=== PATIENT | female | born 1960 | race Caucasian/White ===

== ENCOUNTER → 2016-07-21 | Outpatient (CLI) | payer OTHER ==
[~2016-07-21] MED LIST: ALPR1TAB3 PO; BUPR-79 PO; CEFU1TAB36 PO; CLC100 PO; ESCI10TA17 PO; ESCI1TAB10 PO; GABA-112 PO; HYDR-5688 PO; MRN5 PO; MULT-506 PO; NCDT21 TD; NICO14DI9 TOP; NRN100 PO; OXYC-57 PO; RMR15 PO; SENNTAB23 PO; TRAM-10 PO; TRAZ50TA35 PO; VICODIN PO
--- NOTE | 2016-07-21 12:54 | DIAGNOSTIC IMAGING REPORT ---
PET/CT CLINICAL HISTORY: Lung mass. COMPARISON STUDY: Chest CT dated 06/25/2016. TECHNIQUE: One hour following the IV administration of 15.83 mCi of F-18 FDG, PET/CT examination was performed from the orbital meatal line through the bony pelvis. Noncontrast CT is performed for the purposes of anatomic correlation and attenuation correction. Note that this does not reflect a diagnostic CT examination. Images were reviewed on a separate [employer] independent workstation. Fused images were obtained. Standard uptake values reported are maximum values within the region of interest expressed in gm/mL. FINDINGS: PET FINDINGS: Head and neck: There is expected physiologic activity within the visualized brain parenchyma at the skull base and the salivary glands. Thorax: Evaluation of the thorax demonstrates expected physiologic myocardial activity. There is approximately 8.5 x 8.5 x 7 cm right suprahilar mass lesion. This mass is markedly FDG avid with a maximum SUV of 12.0. A 3 mm left apical nodule seen on image #65 and 3 mm right lower lobe pulmonary nodules seen on images #96 and #102 are too small for PET characterization. No left-sided pulmonary nodules are seen. A mildly enlarged precarinal lymph node on image #78 measures 1.3 cm short axis. This was not demonstrably FDG avid. No FDG avid mediastinal or hilar lymph nodes were clearly seen. There is mild periosteal reaction is identified around the right posterior eighth rib. There is low level FDG activity at this site with a maximum SUV of 2.7. Abdomen and pelvis: There is expected activity within the liver, spleen, kidneys, renal collecting system, and bladder. Low-level bowel activity is likely within physical limits. Unenhanced CT images: The partially visualized brain parenchyma at the skull base is within normal limits. Orbital contents are normal as visualized. The paranasal sinuses and mastoid air cells are clear. The salivary and thyroid glands are unremarkable. There is no cervical lymphadenopathy. There is mild atherosclerotic calcification of the thoracic aorta which is normal in caliber. The heart is normal in size and without pericardial effusion. Emphysema is noted. There is no airspace consolidation typical for pneumonia or pleural effusion. See above under PET findings for assessment of pulmonary lesions. No axillary lymphadenopathy is seen. The unenhanced liver, gallbladder, spleen, adrenal glands, pancreas, and kidneys are grossly normal. The abdominal aorta is normal in course and caliber noting mild atherosclerotic calcification. There is no bowel obstruction. Mild colonic fecal retention is observed. No intraperitoneal free air or abdominal ascites is seen. There is no abdominal, pelvic, or inguinal lymphadenopathy. The bladder is partially decompressed and grossly unremarkable. The uterus is surgically absent. No adnexal lesion is seen. Periosteal reaction is noted involving the right posterior eighth rib. No additional bony abnormalities are identified. Postoperative change is identified in the mandible. IMPRESSION: 1. An 8.5 cm right suprahilar pulmonary mass lesion is again seen. This is markedly FDG avid and typical in appearance for a primary lung cancer. 2. There are 3 mm pulmonary nodules at the right apex and in the right lower lobe that are too small for PET characterization and indeterminant. These were also seen on the 06/25/2016 examination. 3. No left-sided pulmonary lesions are identified. 4. No FDG avid hilar or mediastinal lymph nodes are clearly identified. A mildly enlarged precarinal node is again seen and indeterminant, as this node did not show FDG uptake. 5. There is periosteal reaction seen involving the right posterior eighth rib with low level FDG activity. This is indeterminant and could represent a healing fracture. A metastatic focus would be impossible to exclude. Attention at follow-up is recommended. 6. There is no evidence of extrathoracic metastatic disease. 7. Emphysema. Electronically signed by: Deven Charles M.D. 07/21/2016 12:52 PM Dictated Date/Time: 07/21/2016 12:34 PM
== END | disposition home or self-care (01) ==
LOC: C.PET 10:27
PROVIDERS: ATTEND Internal Medicine Critical Care Medicine
DX: R91.8 Other nonspecific abnormal finding of lung field (principal); R91.1 Solitary pulmonary nodule; R93.7 Abnormal findings on diagnostic imaging of other parts of musculoskeletal system; J43.9 Emphysema, unspecified

== ENCOUNTER → 2016-07-23 | Outpatient (CLI) | payer OTHER ==
--- NOTE | 2016-07-23 15:56 | DIAGNOSTIC IMAGING REPORT ---
CT CHEST SUPERDIMENSIONAL WITHOUT CT DOSE: 219.07 mGy.cm CLINICAL HISTORY: Right lung pulmonary mass TECHNIQUE: Helical images were acquired through the chest without intravenous contrast. The data was sent for navigational bronchoscopy. No bony destructive changes are visualized. COMPARISON STUDY: PET/CT scan dated 07/21/2016 FINDINGS: No thyroid masses are visualized. There is a mildly enlarged precarinal lymph node measuring 13 mm in short axis. Right paratracheal lymph nodes are at the upper limits of normal in size. There is no pathologic hilar adenopathy given the limitations of a noncontrast study. There is no evidence of pathologic axillary lymphadenopathy. There is no evidence of thoracic aortic dilatation. The heart is normal in size. No pericardial effusion is visualized. No adrenal masses are visualized. There are no pleural effusions. There is an irregularly marginated 7.8 cm right upper lobe pulmonary mass. This mass extends to the right apical pleura. The mass abuts right innominate vein and superior vena cava. There is a 3.6 mm right lower lobe pulmonary nodule as visualized on image #197/336. There is a 4 mm right lower lobe pulmonary nodule as visualized in image #177/336. There is a 3 mm right upper lobe pulmonary nodule as visualized in image #75/336. There is a 2 mm left upper lobe pulmonary nodule as visualized on image #76/336. There is a 2.5 mm left upper lobe pulmonary nodule as visualized in image #83/336. There is a 4.5 mm left upper lobe pulmonary nodule as visualized on image #107/336. There is a 3 mm left lower lobe probably nodule as visualized in image #232/336. No skeletal destructive lesions are visualized IMPRESSION: 1. 7.8 cm right upper lobe pulmonary mass extending to the right apical pleura and abutting the right innominate vein and superior vena cava. The mass is irregularly marginated and highly suspicious for a bronchogenic carcinoma 2. Scattered subcentimeter pulmonary nodules 3. Mildly enlarged precarinal lymph node Electronically signed by: Bentley Veloz M.D. 07/23/2016 3:55 PM Dictated Date/Time: 07/23/2016 3:44 PM
== END | disposition home or self-care (01) ==
LOC: C.CTS 14:59
PROVIDERS: ATTEND Surgery
DX: R91.8 Other nonspecific abnormal finding of lung field (principal)

== ENCOUNTER → 2016-07-23 | Outpatient (CLI) | payer OTHER ==
[2016-07-23 16:44] LABS: BASO % 0.3 %; BASO ABS # 0.03 K/uL (0-0.2); COMPLETE YES; EOS % 1.1 %; HEMATOCRIT 39.5 % (37-47); IG% 0.3 %; LYMPH % 32.9 %; LYMPH ABS # 3.17 K/uL (1.2-3.4); MEAN CELL VOLUME 86.1 fL (80-100); MEAN CORPUSCULAR HEMOGLOBIN 30.1 pg (25-34); MEAN CORPUSCULAR HGB CONC 34.9 g/dl (32-36); MEAN PLATELET VOLUME 10.7 fL (7.4-10.4); MONO % 4.9 %; NEUT % 60.5 %; PLATELET COUNT 291 K/uL (130-400); RED BLOOD COUNT 4.59 M/uL (4.2-5.4); WHITE BLOOD COUNT 9.63 K/uL (4.8-10.8)
[2016-07-23 17:00] LABS: PROTHROMBIN TIME (PATIENT) 10.6 SECONDS (9.0-12.0)
[2016-07-23 17:07] LABS: ALT/SGPT 17 U/L (12-78); BLOOD UREA NITROGEN 9 mg/dl (7-18); BUN/CREATININE RATIO 15.4 (10-20); CALCIUM 9.2 mg/dl (8.5-10.1); CARBON DIOXIDE 28 mmol/L (21-32); CHLORIDE 106 mmol/L (98-107); CREATININE 0.61 mg/dl (0.60-1.20); GLUCOSE 81 mg/dl (70-99); POTASSIUM 3.7 mmol/L (3.5-5.1); SODIUM 142 mmol/L (136-145)
[2016-07-23 17:09] LABS: ALB/GLOB RATIO 1.1 (0.9-2); ALKALINE PHOSPHATASE 86 U/L (45-117); AST/SGOT 13 U/L (15-37)
== END | disposition home or self-care (01) ==
LOC: C.LAB 15:04
PROVIDERS: ATTEND Surgery
DX: C34.90 Malignant neoplasm of unspecified part of unspecified bronchus or lung (principal); F17.200 Nicotine dependence, unspecified, uncomplicated

== ENCOUNTER 2016-08-05 05:30 | Day surgery (SDC) | payer OTHER ==
[2016-07-26 09:32] VITALS: BMI 21.0
[~2016-08-05] VITALS: Ht 167.6 cm; Wt 60.0 kg
[~2016-08-05 05:30] MED LIST changes: -BUPR-79 PO; -CEFU1TAB36 PO; -CLC100 PO; -ESCI10TA17 PO; -GABA-112 PO; -HYDR-5688 PO; -MRN5 PO; -MULT-506 PO; -NCDT21 TD; -NICO14DI9 TOP; -NRN100 PO; -OXYC-57 PO; -RMR15 PO; -SENNTAB23 PO; -TRAM-10 PO; -VICODIN PO
[2016-08-05 05:46] VITALS: BP 111/70; PULSE 86; TEMP 36.4; O2SAT 98; Ht 167.6 cm; Wt 60.0 kg
[2016-08-05] MEDS ORDERED: TRAM-10 PO (05:58)
[2016-08-05] MEDS ORDERED: BUPR-79 PO (05:59)
[2016-08-05] MEDS ORDERED: LACTATED RINGER'S 1000ML 1,000 ML IV SCH (06:00)
[2016-08-05] MEDS ORDERED: EpHEDrine SULFATE INJ 50 MG/ML AMP ONE (06:40)
[2016-08-05] MEDS ORDERED: ROCURONIUM BROMIDE 10 MG/ML 5 ML VIAL ONE (06:40)
[2016-08-05] MEDS ORDERED: SUCCINYLCHOLINE CHLORIDE 20 MG/ML 10 ML VIAL IV ONE (06:40)
[2016-08-05] MEDS ORDERED: PHENYLEPHRINE HCL INJ 10 MG/ML VIAL ONE (06:40)
[2016-08-05] MEDS ORDERED: MIDAZOLAM HCL 1 MG/ML 2ML VIAL ONE (06:40)
[2016-08-05] MEDS ORDERED: NEOSTIGMINE METHYLSULFATE 5 MG/5 ML SYR ONE (06:40)
[2016-08-05] MEDS ORDERED: PROPOFOL IV EMULSION 10 MG/ML 20 ML VIAL IV ONE (06:40)
[2016-08-05] MEDS ORDERED: ONDANSETRON INJ 2 MG/ML 2 ML VIAL ONE ×2 (06:40→07:44)
[2016-08-05] MEDS ORDERED: FENTANYL CITRATE INJ 50 MCG/1 ML 2 ML VIAL ONE (06:40)
[2016-08-05] MEDS ORDERED: LIDOCAINE HCL 2% 2 ML VIAL (20MG/ML) ONE (06:40)
[2016-08-05] MEDS ORDERED: GLYCOPYRROLATE INJ 0.2 MG/ML VIAL ONE (06:40)
[2016-08-05] MEDS ORDERED: DEXAMETHASONE SOD INJ 4 MG/ML VIAL ONE ×2 (06:40→07:44)
--- NOTE | 2016-08-05 06:52 | History & Physical Bridge Note ---
H&P Re-Evaluation Bridge Note: I have examined the patient, reviewed the History & Physical and in the interval since the performance of the History & Physical I have noted the following changes of clinical significance: No changes noted
--- NOTE | 2016-08-05 07:33 | Discharge Instructions ---
Discharge Instructions Admission Reason for Admission: Lung Mass Discharge Discharge Diagnosis / Problem: Lung Mass Discharge Goals Goal(s): Learn about illness Activity Recommendations Activity Limitations: resume your previous activity (in 24 hours) . Instructions / Follow-Up Instructions / Follow-Up 1. You may cough up some blood. Call physician if excessive amount noted. 2. Keep your scheduled appointment with Dr. Ordonez on August 12 @ 11:45. Current Hospital Diet Patient's current hospital diet: Discharge Diet Recommended Diet: Regular Diet Procedures Procedures Performed: Navigation Bronchoscopy and Enobronchial Ultrasiund Pending Studies Studies pending at discharge: no Medical Emergencies . Who to Call and When: Medical Emergencies: If at any time you feel your situation is an emergency, please call 911 immediately. . Non-Emergent Contact Non-Emergency issues call your: Surgeon . "Provider Documentation" section prepared by Jun Lea. VTE Core Measure Inpt VTE Proph given/why not?: Treatment not indicated
[2016-08-05] MEDS ORDERED: CLINDAMYCIN PHOS 150 MG/ML 2 ML VIAL ONE (07:43)
[2016-08-05] MEDS ORDERED: ONDANSETRON INJ 2 MG/ML 2 ML VIAL IV PRN (08:00)
[2016-08-05] MEDS ORDERED: EpHEDrine SULFATE INJ 50 MG/ML AMP IV PRN (08:00)
[2016-08-05] MEDS ORDERED: FENTANYL CITRATE INJ 50 MCG/1 ML 2 ML VIAL IV PRN (08:00)
[2016-08-05] MEDS ORDERED: HYDROmorphone INJ 1 MG/ML SYR IV PRN (08:00)
[2016-08-05] MEDS ORDERED: ATROPINE SULFATE 0.1 MG/ML 5ML SYR IV PRN (08:00)
[2016-08-05] MEDS ORDERED: ALBUT/IPRATROP 3MG/0.5MG NEB 3 ML VIAL INH PRN (09:00)
[2016-08-05] MEDS ORDERED: ALBUTEROL HFA INHALER 8.5 GM INH ONE (09:02)
[2016-08-05] MEDS ORDERED: LARYING-O-JET KIT (LTA) EXT ONE ×2 (09:02)
--- NOTE | 2016-08-05 09:16 | DIAGNOSTIC IMAGING REPORT ---
INTRAOPERATIVE RADIOGRAPH CLINICAL HISTORY: Bronchoscopy. Lung mass. Fluoroscopy time: 136 seconds. FINDINGS: A single spot fluoroscopic image of the right upper chest is correlated with chest CT dated 07/23/2016. A large right upper lobe mass is identified. The bronchoscope projects over the lower aspect of the mass. IMPRESSION: Intraoperative image from a bronchoscopy procedure. See operative report for detailed findings. Electronically signed by: Deven Charles M.D. 08/05/2016 9:14 AM Dictated Date/Time: 08/05/2016 9:13 AM
--- NOTE | 2016-08-05 09:25 | DIAGNOSTIC IMAGING REPORT ---
SINGLE VIEW CHEST CLINICAL HISTORY: Lung mass. Bronchoscopy with biopsy. FINDINGS: An AP, portable, upright chest radiograph is compared to study dated 06/18/2016 and correlated with chest CT dated 07/23/2016. The examination is degraded by portable technique and patient rotation. The cardiomediastinal silhouette is unremarkable. There is mild atherosclerotic calcification of the thoracic aorta. Emphysema and chronic interstitial thickening are similar to previous. A right apical lung mass is unchanged and measures at least 8 cm. Bibasilar airspace opacities likely represent atelectasis. No large pleural effusion or pneumothorax is seen. The skeletal structures are osteopenic. The bony thorax is grossly intact. IMPRESSION: 1. No pneumothorax is identified post procedure. 2. Emphysema and a large right apical lung mass are similar to previous. 3. Bibasilar airspace opacities likely represent atelectasis. Clinical correlation will be required. Electronically signed by: Deven Charles M.D. 08/05/2016 9:23 AM Dictated Date/Time: 08/05/2016 9:21 AM
[2016-08-05 09:37] VITALS: PULSE 74; O2SAT 94
--- NOTE | 2016-08-05 09:37 | Anesthesiology Progress Note ---
Anesthesia Post Op Note Date & Time Aug 05, 2016 at 09:36 Vital Signs Pain Intensity: 3 Vital Signs Past 12 Hours Date Time Temp Pulse Resp B/P Pulse Ox O2 Delivery O2 Flow Rate FiO2 08/05/16 09:30 82 16 124/78 98 Nasal Cannula 2 08/05/16 09:20 92 16 133/89 100 Mask 10 08/05/16 09:10 89 16 130/77 100 Mask 10 08/05/16 09:00 36.4 99 16 149/86 100 Mask 10 08/05/16 05:46 36.4 86 16 111/70 98 Room Air Notes Mental Status: alert / awake / arousable, participated in evaluation Pt Amnestic to Procedure: Yes Nausea / Vomiting: adequately controlled Pain: adequately controlled Airway Patency, RR, SpO2: stable & adequate BP & HR: stable & adequate Hydration State: stable & adequate Anesthetic Complications: no major complications apparent Patient feels breathing is at her baseline. She still sounds course in her right lung but this was present prior to surgery. VSS. Received duoneb in PACU and SpO2 remaining in high 90's on minimal NC oxygen. No complications.
[2016-08-05 09:50] VITALS: BP 108/69; PULSE 88; TEMP 36.7; O2SAT 95
--- NOTE | 2016-08-05 09:56 | OPERATIVE REPORT ---
DATE OF OPERATION: 08/05/2016 PREOPERATIVE DIAGNOSIS: Large right upper lobe mass. POSTOPERATIVE DIAGNOSIS: Nonsmall cell carcinoma right upper lobe. SURGEON: Dr. Ordonez. MARKET ANALYSIS DIRECTOR: Shukri Castle, respiratory. ANESTHESIA: General anesthesia endotracheal intubation. PROCEDURES: 1. Endobronchial ultrasound with biopsy with staging of the mediastinum. 2. Navigational bronchoscopy with biopsy. SPECIFICS OF PROCEDURE: The patient was brought to the operating room on 08/05/2016. I had a long discussion with the patient and her in the morning before surgery and in the office beforehand. I explained to them that this is almost definitely a nonsmall cell lung carcinoma. I felt it important that we stage her mediastinum. I actually discussed this case at the cancer conference this past week and the option of a thoracotomy with a primary lung resection followed by adjuvant therapy versus preoperative neoadjuvant therapy and then surgery was discussed. Much of what happens will be determined by what we find on today's staging procedures. This has Pancoast like qualities. I will see them back in the office to discuss the results of this next week. DESCRIPTION OF PROCEDURE: The patient brought to the operating room and placed in the supine position. General anesthesia induced and endotracheal intubation was performed. After appropriate timeout had been given and prophylactic antibiotics were given, the endobronchial ultrasound was placed. I saw no endobronchial lesions; however, some of the more distal right upper lobe bronchi were being compressed and had fishmouth appearances. I was quite happy with the origin of the upper lobe; however. There were no endobronchial lesions and they did not appear to be compressed. I did concern about that from the preoperative CT scan. Using the ultrasound I then biopsied the left level 11, left level 10, left level 4, level 7 on both sides of the carinal, right level 11, right level 10, right level 4. We got good lymphocytes back on all these lymph nodes stages except the left level 4. I went back and did multiple passes, however, we still did not get good lymphocytes. There was no evidence of cancer in the preliminaries. Cell blocks of course have been sent. We did not get really very little in the way of bleeding. I then removed the endobronchial ultrasound scope and placed a regular fiberoptic bronchoscopy and suctioned out a scant amount of blood on both sides. I then went in and registered the airways using the [employer] navigational system. I then placed a navigational probe and we went into the upper lobe. This mass was very large and I went right into it without difficulty with the navigational probe. I then did brushings, needle biopsies and forceps biopsies. Preliminary shows nonsmall cell lung carcinoma. There was minor bleeding from this, and we finished and I did do a washing and also sent out for cytology. I irrigated out the entire area and the bleeding resolved. I then slowly removed the bronchoscope. The patient tolerated the procedure well. I attest to the content of the Intraoperative Record and any orders documented therein. Any exceptio ns are noted below.
[2016-08-05 10:20] VITALS: BP 125/64; PULSE 82; TEMP 36.7; O2SAT 95
[2016-08-05 10:50] VITALS: BP 130/64; PULSE 80; TEMP 36.5; O2SAT 93
[2016-09-29] MEDS ORDERED: SENNTAB23 PO (11:19)
[2016-09-29] MEDS ORDERED: GABA-112 PO (11:19)
[2016-09-29] MEDS ORDERED: NICO14DI9 TOP (11:19)
[2016-09-29] MEDS ORDERED: ESCI10TA17 PO (11:19)
[2016-09-29] MEDS ORDERED: OXYC-57 PO (11:20)
[2016-09-29] MEDS ORDERED: VICODIN PO (11:21)
[2016-10-04] MEDS ORDERED: HYDR-5688 PO (10:57)
[2016-10-12] MEDS ORDERED: HYDR-5688 PO (09:38)
[2016-10-12] MEDS ORDERED: MULT-506 PO (09:38)
[2016-12-02] MEDS ORDERED: MRN5 PO (14:23)
== END 2016-08-05 11:07 | disposition home or self-care (01) ==
LOC: C.ACU 05:30
PROVIDERS: ATTEND Surgery
DX: C34.91 Malignant neoplasm of unspecified part of right bronchus or lung (principal); F17.210 Nicotine dependence, cigarettes, uncomplicated; Z82.5 Family history of asthma and other chronic lower respiratory diseases; Z83.3 Family history of diabetes mellitus

== ENCOUNTER 2016-08-17 05:37 | Inpatient (IN) | payer OTHER ==
[2016-08-12 15:57] VITALS: BMI 21.0
[~2016-08-17] VITALS: Ht 167.6 cm; Wt 60.3 kg
[2016-08-17] VITALS (18 sets, daily range): BP systolic 79–108; BP diastolic 44–65; PULSE 81–100; TEMP 36.6–36.9; O2SAT 96–99; Ht 167.6 cm; Wt 60.3 kg
[~2016-08-17 05:37] MED LIST changes: +BUPR-79 PO; +TRAM-10 PO
[2016-08-17] MEDS ORDERED: LACTATED RINGER'S 1000ML 1,000 ML IV SCH (06:00)
[2016-08-17] MEDS ORDERED: MoRPHine SULFATE PF 1 MG/ML 10 ML AMP/VIAL ONE (06:44)
[2016-08-17] MEDS ORDERED: FENTANYL CITRATE INJ 50 MCG/1 ML 2 ML VIAL ONE ×3 (06:44→10:10)
[2016-08-17] MEDS ORDERED: MIDAZOLAM HCL 1 MG/ML 2ML VIAL ONE (06:44)
[2016-08-17] MEDS ORDERED: PROPOFOL IV EMULSION 10 MG/ML 20 ML VIAL IV ONE (06:45)
[2016-08-17] MEDS ORDERED: LIDOCAINE HCL 2% 2 ML VIAL (20MG/ML) ONE (06:45)
[2016-08-17] MEDS ORDERED: NEOSTIGMINE METHYLSULFATE 5 MG/5 ML SYR ONE (06:45)
[2016-08-17] MEDS ORDERED: GLYCOPYRROLATE INJ 0.2 MG/ML VIAL ONE (06:45)
[2016-08-17] MEDS ORDERED: PHENYLEPHRINE HCL INJ 10 MG/ML VIAL ONE (06:45)
[2016-08-17] MEDS ORDERED: DEXAMETHASONE SOD INJ 4 MG/ML VIAL ONE (06:45)
[2016-08-17] MEDS ORDERED: ONDANSETRON INJ 2 MG/ML 2 ML VIAL ONE ×2 (06:45→11:44)
[2016-08-17] MEDS ORDERED: ROCURONIUM BROMIDE 10 MG/ML 5 ML VIAL ONE (06:45)
[2016-08-17] MEDS ORDERED: LIDOCAINE HCL 2% JELLY 30 ML TUBE EXT ONE (07:04)
[2016-08-17] MEDS ORDERED: BUPIVACAINE LIPOSOME 1/3% 266 MG/20 ML VIAL INFIL ONE (07:33)
[2016-08-17] MEDS ORDERED: SODIUM CHLORIDE 0.9% PF 50 ML VIAL ONE (07:33)
[2016-08-17] MEDS ORDERED: CEFAZOLIN SOD 1 GM VIAL ONE (09:22)
[2016-08-17] MEDS ORDERED: LABETALOL HCL IV 5 MG/ML 20ML ONE (09:22)
[2016-08-17] MEDS ORDERED: ESMOLOL HCL 10 MG/ML 10 ML VIAL ONE (09:23)
[2016-08-17] MEDS ORDERED: SURGICEL ABSORB HEMOSTAT 2IN X 14IN TOP ONE (09:58)
[2016-08-17] MEDS ORDERED: VANCOMYCIN HCL 1000MG/20ML VIAL ONE (11:22)
[2016-08-17] MEDS ORDERED: GENTAMICIN SULFATE 40 MG/ML 2 ML VIAL ONE (11:22)
[2016-08-17] MEDS ORDERED: OXYCODONE/ACETAMINOPHEN 5-325 TAB PO PRN (12:30)
[2016-08-17] MEDS ORDERED: ONDANSETRON INJ 2 MG/ML 2 ML VIAL IV PRN ×2 (12:30→12:45)
[2016-08-17] MEDS ORDERED: LABETALOL HCL IV 5 MG/ML 20ML IV PRN (12:45)
[2016-08-17] MEDS ORDERED: FLUMAZENIL 0.1 MG/1 ML 10 ML VIAL IV PRN (12:45)
[2016-08-17] MEDS ORDERED: EpHEDrine SULFATE INJ 50 MG/ML AMP IV PRN (12:45)
[2016-08-17] MEDS ORDERED: ATROPINE SULFATE 0.1 MG/ML 5ML SYR IV PRN (12:45)
[2016-08-17] MEDS ORDERED: NALOXONE HCL 0.4 MG/1 ML VIAL/CARP IV PRN (12:45)
[2016-08-17] MEDS ORDERED: PROMETHAZINE HCL INJ 12.5 MG in SODIUM CHLORIDE 0.9% 50ML 50 ML IV PRN (12:45)
[2016-08-17] MEDS ORDERED: HYDROmorphone INJ 1 MG/ML SYR IV PRN (12:45)
--- NOTE | 2016-08-17 13:06 | DIAGNOSTIC IMAGING REPORT ---
CHEST ONE VIEW PORTABLE CLINICAL HISTORY: Postop pulmonary resection COMPARISON STUDY: 08/05/2016 FINDINGS: There are postsurgical changes of a midline sternotomy. There is a left internal jugular central venous catheter present. There has been interval resection of the large right upper lobe pulmonary mass. There is a small right pleural effusion. There is a right-sided chest tube with its tip projected at the right third/fourth rib interspace no pneumothorax is visualized.[ IMPRESSION: Postsurgical changes status post resection of a right upper lobe pulmonary mass. Small right pleural effusion. No evidence of pneumothorax. Electronically signed by: Bentley Veloz M.D. 08/17/2016 1:05 PM Dictated Date/Time: 08/17/2016 1:03 PM
[2016-08-17] MEDS ORDERED: HYDROmorphone INJ 1 MG/ML SYR ONE (13:12)
[2016-08-17 13:24] LABS: HEMATOCRIT 37.8 % (37-47)
[2016-08-17 13:25] LABS: ARTERIAL BLOOD GAS HCO3 25 mmol/L (19-24); ARTERIAL BLOOD GAS PO2 86 mm/Hg (80-95); ARTERIAL BLOOD GAS pH 7.24 (7.35-7.45)
--- NOTE | 2016-08-17 13:27 | Anesthesiology Progress Note ---
Anesthesia Post Op Note Date & Time Aug 17, 2016 at 13:26 Vital Signs Pain Intensity: 6.0 Vital Signs Past 12 Hours Date Time Temp Pulse Resp B/P Pulse Ox O2 Delivery O2 Flow Rate FiO2 08/17/16 13:15 98 16 99/63 99 Nasal Cannula 3 08/17/16 13:05 103 16 101/69 100 Nasal Cannula 3 08/17/16 12:55 102 16 102/80 100 Mask 10 08/17/16 12:45 104 16 128/72 100 Mask 10 08/17/16 12:35 36 104 16 114/71 100 Mask 10 08/17/16 05:45 36.8 81 18 108/65 98 Room Air Notes Mental Status: alert / awake / arousable, participated in evaluation Pt Amnestic to Procedure: Yes Nausea / Vomiting: adequately controlled Pain: adequately controlled Airway Patency, RR, SpO2: stable & adequate BP & HR: stable & adequate Hydration State: stable & adequate Anesthetic Complications: no major complications apparent
[2016-08-17 13:30] LABS: ALLEN TEST POSITIVE (POS); O2 ADMINISTRATION 3 LITERS
[2016-08-17] MEDS: D5W AND 1/2NSS 1,000 ML IV SCH (14:34)
[2016-08-17] MEDS: KETOROLAC TROMETHAMINE 15 MG/ML VIAL IV. SCH ×2 (14:38→21:47)
[2016-08-17] MEDS: METOCLOPRAMIDE HCL INJ 5 MG/ML 2 ML VIAL IV. SCH ×2 (14:39→21:47)
[2016-08-17] MEDS: ACETAMINOPHEN IV 1,000 MG in EMPTY BAG 0 ML IV SCH ×2 (14:41→21:57)
--- NOTE | 2016-08-17 15:45 | Critical Care Consultation ---
Critical Care Consultation Date of Consultation: Aug 17, 2016. Attending Physician: Alex Ordonez MD Reason for Consultation: Post-op management History of Present Illness This is a 56 year-old female with h/o depression and anxiety, POD#0 s/p sternotomy, right upper lobe lobectomy for primary lung adenocarcinoma. Had minimal intra-op blood loss, is extubated now, complaining of some pain, but overall feels ok. Has left IJ TLC, right radial a-line and right sided chest tube. States that she noted some weight loss in the past year, and recently developed worse cough with shortness of breath. Past Medical/Surgical History Depression with anxiety COPD by PFT on 07/22/16 Social History Smoking Status: Current Every Day Smoker (3 packs/day, started at age 14) Allergies Coded Allergies: No Known Allergies (Unverified , 08/17/16) Home Medications Scheduled Alprazolam (Xanax), 1 MG PO QID Bupropion (Wellbutrin Sr), 150 MG PO BID Escitalopram Oxalate (Lexapro), 20 MG PO QPM Trazodone Hcl (Trazodone), 50 MG PO HS Scheduled PRN Tramadol (Ultram), 50 MG PO Q8H PRN for Pain Current Inpatient Medications Current Inpatient Medications Medications (Trade) Dose Ordered Sig/Olamide Route Start Time Stop Time Status Last Admin Dose Admin Lactated Ringer's 1,000 ml @ 15 mls/hr Q24H IV 08/17/16 06:00 08/17/16 18:00 Acetaminophen/ Empty Bag (Ofirmev Iv/ Empty Iv Bag 100ml) 100 ml @ 400 mls/hr Q8H IV 08/17/16 14:00 09/16/16 13:59 08/17/16 14:41 400 MLS/HR Alprazolam (Xanax Tab) 1 mg QID PO 08/17/16 17:00 09/16/16 16:59 Bupropion HCl (Wellbutrin-Sr Tab) 150 mg BID PO 08/17/16 21:00 09/16/16 20:59 Escitalopram Oxalate (Lexapro Tab) 20 mg QPM PO 08/17/16 21:00 09/16/16 20:59 Trazodone HCl (Desyrel Tab) 50 mg HS PO 08/17/16 21:00 09/16/16 20:59 Enoxaparin Sodium 40 mg 40 mg DAILY SQ 08/18/16 09:00 09/17/16 08:59 Dextrose/Sodium Chloride (D5W And 1/2nss) 1,000 ml @ 100 mls/hr Q10H IV 08/17/16 14:08 09/16/16 12:24 08/17/16 14:34 100 MLS/HR Ondansetron HCl (Zofran Inj) 4 mg Q4H PRN IV 08/17/16 12:30 09/16/16 12:29 Docusate Sodium 100 mg 100 mg BID PO 08/17/16 21:00 09/16/16 20:59 Cefazolin Sodium/ Dextrose (Ancef Iv/D5 50ml) 60 ml @ 120 mls/hr Q8H IV 08/17/16 16:00 08/18/16 00:29 Ketorolac Tromethamine (Toradol Inj) 15 mg Q8H IV. 08/17/16 14:00 08/19/16 06:01 08/17/16 14:38 15 MG Metoclopramide HCl (Reglan Inj) 10 mg Q8 IV. 08/17/16 14:00 08/18/16 13:59 08/17/16 14:39 10 MG Oxycodone/ Acetaminophen (Percocet 5-325mg Tab) Q3H PRN PO 08/17/16 12:30 08/31/16 12:29 Future Hold Morphine Sulfate (MoRPHine SULFATE INJ) FOR PAIN, 1-2MG 1MG FOR P... Q1H PRN IV 08/17/16 12:30 08/31/16 12:29 Hydromorphone HCl (Dilaudid Inj) 0.25 mg Q5M PRN IV 08/17/16 12:45 08/17/16 17:45 Naloxone HCl (Narcan Inj) 0.2 mg Q2M PRN IV 08/17/16 12:45 08/17/16 17:45 Flumazenil (Romazicon Inj) 0.2 mg Q2M PRN IV 08/17/16 12:45 08/17/16 17:45 Ondansetron HCl 4 mg 4 mg ONE PRN IV 08/17/16 12:45 08/17/16 17:45 Promethazine HCl/ Sodium Chloride (Phenergan Inj/ Nss 50ml) 50.5 ml @ 202 mls/hr ONE PRN IV 08/17/16 12:45 08/17/16 17:45 Labetalol HCl (Normodyne IV) 5 mg Q5M PRN IV 08/17/16 12:45 08/17/16 17:45 Ephedrine Sulfate (EpHEDrine SULFATE INJ) 5 mg Q5M PRN IV 08/17/16 12:45 08/17/16 17:45 Atropine Sulfate (Atropine Sulfate 0.1MG/Ml Inj) 0.5 mg Q1M PRN IV 08/17/16 12:45 08/17/16 17:45 Review of Systems per hpi, all other systems reviewed and negative Physical Exam Date Time Temp Pulse Resp B/P Pulse Ox O2 Delivery O2 Flow Rate FiO2 08/17/16 14:30 100 26 86/47 96 08/17/16 14:15 99 22 89/49 97 08/17/16 13:58 36.8 98 24 95/59 98 Nasal Cannula 2.0 08/17/16 13:35 36.8 97 16 99/71 99 Nasal Cannula 2 08/17/16 13:25 36.8 99 16 96/60 99 Nasal Cannula 3 08/17/16 13:15 98 16 99/63 99 Nasal Cannula 3 08/17/16 13:05 103 16 101/69 100 Nasal Cannula 3 08/17/16 12:55 102 16 102/80 100 Mask 10 08/17/16 12:45 104 16 128/72 100 Mask 10 08/17/16 12:35 36 104 16 114/71 100 Mask 10 08/17/16 05:45 36.8 81 18 108/65 98 Room Air General Appearance: WD/WN, no apparent distress Head: normocephalic, atraumatic Eyes: PERRL Neck: supple, + pertinent finding (left neck TLC) Respiratory/Chest: lungs clear, + pertinent finding (right sided chest tube, sternotomy with dressing over) Cardiovascular: regular rate, rhythm, no edema, no murmur Abdomen/GI: non tender, soft Extremities/Musculoskelatal: normal inspection, no calf tenderness, no pedal edema Neurologic/Psych: medical device sales consultant II-XII nml as tested, no motor/sensory deficits, alert, oriented x 3 Laboratory Results Last 24 Hours Test 08/17/16 13:06 Hemoglobin 12.7 g/dL Hematocrit 37.8 % Arterial Blood pH 7.24 Arterial Blood Partial Pressure CO2 61 mmHg Arterial Blood Partial Pressure O2 86 mm/Hg Arterial Blood HCO3 25 mmol/L Arterial Blood Oxygen Saturation 95.0 % Arterial Blood Base Excess -3.0 mEq/L Arterial Blood Gas Delivery 3 LITERS Shant Test POSITIVE Diagnostic Results CXR today: There are postsurgical changes of a midline sternotomy. There is a left internal jugular central venous catheter present. There has been interval resection of the large right upper lobe pulmonary mass. There is a small right pleural effusion. There is a right-sided chest tube with its tip projected at the right third/fourth rib interspace no pneumothorax is visualized. IMPRESSION: Postsurgical changes status post resection of a right upper lobe pulmonary mass. Small right pleural effusion. No evidence of pneumothorax. Assessment & Plan 56 year old female with RUL adenocarcinoma, s/p sternotomy with RUL lobectomy and LN exploration. Although a heavy smoker, only has mild obstruction on pre-operative PFTs Plan: SOLVENT RECOVERER: Analgesia as needed Resumed Xanax, trazodone, Lexapro and Wellbutrin Pulmonary: Incentive spirometry. Maintain chest tube on suction for today Follow up pathology and staging CVS: HD stable, has a-line On maintenance fluids Borderline BP, will give a small bolus Renal: Check labs today Keep Caban in for today, monitor output GI: Diet once more awake and able to swallow ID: No maintenance Abx DVT prophylaxis: Lovenox, ICDs Critical care time spent 30 minutes. Patient needs close ICU monitoring post-op, having has a sternotomy
[2016-08-17] MEDS ORDERED: SODIUM CHLORIDE 0.9% 500ML 500 ML IV ONE (16:00)
[2016-08-17] MEDS ORDERED: NURSING VERBAL MED ORDER ONE (16:00)
[2016-08-17 16:07] LABS: HEMATOCRIT 34.4 % (37-47); MEAN CELL VOLUME 88.4 fL (80-100); MEAN CORPUSCULAR HEMOGLOBIN 29.6 pg (25-34); MEAN PLATELET VOLUME 9.6 fL (7.4-10.4); PLATELET COUNT 236 K/uL (130-400); RED BLOOD COUNT 3.89 M/uL (4.2-5.4); WHITE BLOOD COUNT 23.16 K/uL (4.8-10.8)
[2016-08-17] MEDS: ALPRAZOLAM 0.5 MG TAB PO SCH ×2 (16:10→21:46)
[2016-08-17 16:17] LABS: ISTAT ARTERIAL BLOOD GAS HCO3 26 meq/L (19-24); ISTAT ARTERIAL BLOOD GAS PCO2 59 mmHg (35-46); ISTAT ARTERIAL BLOOD GAS PO2 114 mmHg (80-95); ISTAT ARTERIAL BLOOD GAS pH 7.24 (7.35-7.45); ISTAT CARBON DIOXIDE 27 mEq/l (24-31); ISTAT DELIVERY SYSTEM Cannula; ISTAT SITE Art Line
[2016-08-17 16:22] LABS: MEAN CORPUSCULAR HGB CONC 33.4 g/dl (32-36)
[2016-08-17] MEDS: CEFAZOLIN IV 2,000 MG in DEXTROSE 5% 50ML 50 ML IV SCH (16:26)
[2016-08-17 16:36] LABS: ALB/GLOB RATIO 0.8 (0.9-2); CALCIUM 7.6 mg/dl (8.5-10.1); CREATININE 0.58 mg/dl (0.60-1.20); MAGNESIUM 1.9 mg/dl (1.8-2.4); PHOSPHORUS 3.9 mg/dl (2.5-4.9); POTASSIUM 4.9 mmol/L (3.5-5.1)
[2016-08-17] MEDS: MoRPHine SULFATE 2 MG/ML CARP IV PRN (19:41)
[2016-08-17] MEDS: ESCITALOPRAM OXALATE 20 MG TAB PO SCH (19:43)
[2016-08-17] MEDS: TRAZODONE HCL 50 MG TAB PO SCH (19:43)
[2016-08-17] MEDS: BuPROPion SR 150 MG TABCR PO SCH (19:43)
[2016-08-17] MEDS: DOCUSATE SODIUM 100 MG CAP PO SCH (19:43)
[2016-08-18] VITALS (15 sets, daily range): BP systolic 94–137; BP diastolic 46–82; PULSE 66–100; TEMP 36.7–37.1; O2SAT 84–98
[2016-08-18] MEDS: CEFAZOLIN IV 2,000 MG in DEXTROSE 5% 50ML 50 ML IV SCH ×2
[2016-08-18] MEDS: D5W AND 1/2NSS 1,000 ML IV SCH (00:37)
--- NOTE | 2016-08-18 01:02 | OPERATIVE REPORT ---
DATE OF OPERATION: 08/17/2016 PREOPERATIVE DIAGNOSIS: Nonsmall cell lung carcinoma, right upper lobe with questionable involvement of left chest wall. POSTOPERATIVE DIAGNOSIS: Nonsmall cell lung carcinoma, left upper lobe. PROCEDURE: 1. Midline sternotomy with right upper lobectomy. 2. Mediastinal lymphadenectomy. HISTORY OF PRESENT ILLNESS: This is a 56-year-old female with a long history of cigarette smoking who presents with a large mass in her right upper lobe. I evaluated this with a CT scan and a PET scan and we did an endobronchial ultrasound with a navigational bronchoscopy and found her to have a nonsmall cell lung carcinoma; however, it did not appear that she has mediastinal involvement of her lymph nodes. I discussed this case at the weekly cancer conference and we elected to proceed with upfront surgery. I decided to proceed with a midline sternotomy given the proximity to the pulmonary artery and bronchus. I felt we may require a sleeve resection or perhaps an arterial patch. I also felt it would be safer from sternotomy, especially if we going to end up resecting part of the chest wall. On 08/17/2016, the patient underwent an uncomplicated medial sternotomy. I did extend this incision up along the right sternocleidomastoid muscle. Initially, I felt that this was growing into the chest wall and made plans to resect the 2nd rib anteriorly; however, I came upon a plane and under direct vision I was able to see that this was not involving the chest wall and I was able to come down sharply and take this off the chest wall. The capsule had not been violated of the mass. It did involve the apparent mediastinal pleura; however, I was able to dissect out the phrenic nerve as well the vena cava. I did sacrifice the azygos vein. Right upper lobectomy was performed without difficulty. I dissected out an internal mammary artery as well as a retrosternal lymph node as well as the level 2 and level 4 lymph node packet and level 10, 11 and 12 nodes. I really had difficulty getting to the level 7 area. For this reason, I did not take out the 7, 8, 9, but she did well. She does not have an air leak after the surgery. She tolerated it well. DESCRIPTION OF PROCEDURE: The patient brought to the operating room, laid in supine position. General anesthesia induced and endotracheal intubation was performed. A single lumen tube was left in place. After she was being prepped and draped in usual sterile fashion, incision made from the sternal notch down to below the xiphoid process and a sternal saw was used to open the chest. Upon opening this and I opened the right pleura, but not the left and the mass was obviously noted. I was concerned that it may involve the chest wall. For this reason, I started dividing the pleura and divided the internal mammary artery and vein. There were some lymph nodes here which we dissected out. It did not appear to be involved. I then went posterior and was able to see that there was actually a plane and the mass was not growing into the chest wall. I managed to come around this and managed to take this down sharply. It did appear to be invading the mediastinal pleura, but not the mediastinum itself. I dissected this off and I was able to sharply and bluntly dissect out the phrenic nerve along its length. The vena cava was not involved nor was the azygos vein. I was able to completely separate this from the chest wall. From this, it was fairly easy then to dissect out the superior pulmonary vein draining just the upper lobe. I divided this with Endo-MARGOTH stapler. I also divided the apical anterior branch with an Endo-MARGOTH stapler. The azygos vein was divided right at its takeoff from the vena cava. We then dissected this out. I then took down a large packet of lymph nodes at level 2 and level 4, actually brought this out as one large mat of nodes but it sharply to divide the level 2 and level 4 nodes. This identified the trachea nicely and I came down and I was able to divide the right upper lobe bronchus. It has been concerned about how close this tumor was. I then dissected out the 2 other branches including the posterior descending branch of the right upper lobe. I then divided the minor and major fissure and then was able to hand this right upper lobe off the field. I dissected out several level 10, level 11, level 12 nodes. We did take down the inferior pulmonary ligament, but it was difficult to get to the patient and I could not palpate any lymph nodes digitally. I then pulled the lung over to get to a level 7 node but the patient had dropped her pressure and did not tolerate having her lung retracted to the left. We then inflated the lung fully and there was no air leak noted. A single 24-Irish chest tube was directed towards the apex and brought through a separate stab wound laterally. We then used 5 separate sternal wires, 2 in the manubrium and 3 and the sternum to reapproximate the edges. I did mix up some calcium sulfate beads as this was an open procedure with the sternotomy. A 10 mL of pharmaceutical grade calcium sulfate was mixed with 1 gram of vancomycin and 240 mg of gentamicin. The pellets were removed. Planted them around the bronchus as well as in the sternum itself and then closed. #1 PDS was used to reapproximate the linea alba. It should be noted that I extended the incision up along the sternocleidomastoid muscle after opening the chest and this was closed with 0 Vicryl to reapproximate the platysma muscle all the way down to the subcutaneous tissues to the linea alba. 4-0 Monocryl was used in running subcuticular fashion to approximate the wound edges. A heavy silk suture was used to hold the [address] The patient was extubated in the room had negligible blood loss. She tolerated it very well. I attest to the content of the Intraoperative Record and any orders documented therein. Any exceptions are noted below. WEID
[2016-08-18] MEDS: ACETAMINOPHEN IV 1,000 MG in EMPTY BAG 0 ML IV SCH ×3 (05:44→21:49)
[2016-08-18] MEDS: KETOROLAC TROMETHAMINE 15 MG/ML VIAL IV. SCH ×3 (05:49→21:49)
[2016-08-18] MEDS: METOCLOPRAMIDE HCL INJ 5 MG/ML 2 ML VIAL IV. SCH (05:49)
[2016-08-18 06:05] LABS: BASO % 0.1 %; BASO ABS # 0.02 K/uL (0-0.2); COMPLETE YES; EOS % 0.5 %; HEMATOCRIT 30.9 % (37-47); IG% 0.2 %; LYMPH % 13.1 %; LYMPH ABS # 1.85 K/uL (1.2-3.4); MEAN CELL VOLUME 88.5 fL (80-100); MEAN CORPUSCULAR HEMOGLOBIN 29.5 pg (25-34); MEAN CORPUSCULAR HGB CONC 33.3 g/dl (32-36); MONO % 5.9 %; NEUT % 80.2 %; PLATELET COUNT 214 K/uL (130-400); RED BLOOD COUNT 3.49 M/uL (4.2-5.4); WHITE BLOOD COUNT 14.07 K/uL (4.8-10.8)
[2016-08-18 06:46] LABS: ALB/GLOB RATIO 0.8 (0.9-2); BUN/CREATININE RATIO 18.1 (10-20); CALCIUM 8.2 mg/dl (8.5-10.1); CREATININE 0.51 mg/dl (0.60-1.20); POTASSIUM 4.1 mmol/L (3.5-5.1)
--- NOTE | 2016-08-18 08:04 | DIAGNOSTIC IMAGING REPORT ---
SINGLE VIEW CHEST CLINICAL HISTORY: Status post right upper lobe resection. FINDINGS: An AP, portable, upright chest radiograph is compared to study dated 08/17/2016 and correlated with chest CT dated 07/23/2016. The examination is degraded by portable technique and patient rotation. A left internal jugular central venous catheter is unchanged in position. The cardiomediastinal silhouette is unremarkable. There is mild atherosclerotic calcification of the thoracic aorta. Emphysema and chronic interstitial thickening are similar to previous. Again seen are postoperative changes from right upper lobe pulmonary resection. A right sided chest tube is unchanged in position. Pleural fluid is again noted at the right lung base. The left lung is grossly clear. No pneumothorax is seen. The skeletal structures are osteopenic. The bony thorax is grossly intact. IMPRESSION: 1. Again seen are postoperative changes from right upper lobe resection. A right-sided chest tube is unchanged in position. No pneumothorax is seen. 2. Pleural fluid is present at the right lung base. 3. Emphysema. The left lung appears clear. Electronically signed by: Deven Charles M.D. 08/18/2016 8:02 AM Dictated Date/Time: 08/18/2016 8:00 AM
[2016-08-18] MEDS: DOCUSATE SODIUM 100 MG CAP PO SCH ×2 (09:19→20:32)
[2016-08-18] MEDS: BuPROPion SR 150 MG TABCR PO SCH ×2 (09:19→20:33)
[2016-08-18] MEDS: ENOXAPARIN 40 MG/0.4 ML SYR SQ SCH (09:19)
[2016-08-18 09:21] LABS: ISTAT ALLEN TEST Pass; ISTAT ARTERIAL BLOOD GAS HCO3 24 meq/L (19-24); ISTAT ARTERIAL BLOOD GAS PCO2 39 mmHg (35-46); ISTAT ARTERIAL BLOOD GAS PO2 65 mmHg (80-95); ISTAT ARTERIAL BLOOD GAS pH 7.41 (7.35-7.45); ISTAT CARBON DIOXIDE 25 mEq/l (24-31); ISTAT DELIVERY SYSTEM Cannula; ISTAT SITE Art Line
[2016-08-18] MEDS: ALPRAZOLAM 0.5 MG TAB PO SCH ×4 (09:21→20:33)
[2016-08-18] MEDS: MoRPHine SULFATE 2 MG/ML CARP IV PRN ×3 (09:22→23:52)
[2016-08-18] MEDS: OXYCODONE HCL IR 5 MG TAB (IMMEDIATE RELEASE) PO PRN ×2 (14:37→20:01)
--- NOTE | 2016-08-18 15:45 | SURGERY PROGRESS NOTE ---
DATE: 08/18/2016 SUBJECTIVE: Ms. Clement underwent a midline sternotomy with a right upper lobectomy yesterday and looks very good today. Her labs look good. She is on room air. She is tolerating a diet. I am quite happy with her thus far. We are going to move her to a regular surgical floor. In addition, we are going to remove all of her lines except for her chest tube. She has no air leak, I am hopeful her chest tube can be be removed tomorrow. I am quite happy with her at this point. ADAM
[2016-08-18] MEDS: TRAZODONE HCL 50 MG TAB PO SCH (20:33)
[2016-08-18] MEDS: ESCITALOPRAM OXALATE 20 MG TAB PO SCH (20:33)
[2016-08-19] VITALS (9 sets, daily range): BP systolic 101–130; BP diastolic 64–87; PULSE 94–109; TEMP 36.5–37; O2SAT 84–95
[2016-08-19] MEDS: OXYCODONE HCL IR 5 MG TAB (IMMEDIATE RELEASE) PO PRN ×4 (04:00→20:17)
[2016-08-19] MEDS: MoRPHine SULFATE 2 MG/ML CARP IV PRN ×7 (05:07→20:55)
[2016-08-19] MEDS: KETOROLAC TROMETHAMINE 15 MG/ML VIAL IV. SCH (06:07)
[2016-08-19] MEDS: ACETAMINOPHEN IV 1,000 MG in EMPTY BAG 0 ML IV SCH ×3 (06:07→21:53)
--- NOTE | 2016-08-19 07:26 | DIAGNOSTIC IMAGING REPORT ---
CHEST ONE VIEW PORTABLE CLINICAL HISTORY: s/p RUL postoperative evaluation COMPARISON STUDY: 08/18/2016 FINDINGS: A subtle increase in density left base compared to the prior study. Early developing parenchymal infiltrate is not excluded. Patient developed atelectasis is of the bulk of the contents of the right hemithorax. There is a moderate right pneumothorax. Right-sided drainage catheter is unchanged in location. Postoperative changes are stable. There is mild cardiac mediastinal silhouette shift to the right which may indicate a component of volume loss. IMPRESSION: 1. Postoperative changes right upper lung with a right-sided chest catheter. 2. Approximately 30% right-sided pneumothorax with consolidative change of the remainder of the right hemithorax. Potential developing parenchymal infiltrate left base Electronically signed by: Rodolfo Reilly M.D. 08/19/2016 7:24 AM Dictated Date/Time: 08/19/2016 7:19 AM
[2016-08-19] MEDS ORDERED: PIPERACILL/TAZOBAC IV 3.375 GM in DEXTROSE 5% 100ML 100 ML IV ONE (08:45)
[2016-08-19] MEDS ORDERED: PIPERACILL/TAZOBAC CONSULT ACTIVE PRN (08:45)
--- NOTE | 2016-08-19 08:45 | SURGERY PROGRESS NOTE ---
DATE: 08/19/2016 Ms. Clement is seen today on 08/19/2016, 48 hours status post midline sternotomy with a right upper lobectomy of a very large lung cancer. The patient has complete collapse of her right lower lobe and right middle lobe due to atelectasis. She does not have an air leak. I had a long talk with her today. Her incision looks good. Her left lung sounds good. My biggest concern of course is that she could develop a pneumonia with this. We are going restart her antibiotics and I have changed her pain meds and I have also increased them. I told the patient and the nurse how important it is for her to get up and ambulate. We will hold her n.p.o., work on her incentive spirometry and pulmonary toilet and ambulation, and we will check a chest x-ray today. If she has not reexpanded, I will perform a bronchoscopy this afternoon.
[2016-08-19 08:54] LABS: BASO % 0.1 %; BASO ABS # 0.02 K/uL (0-0.2); EOS % 0.1 %; HEMATOCRIT 31.6 % (37-47); IG% 0.3 %; LYMPH ABS # 1.09 K/uL (1.2-3.4); MEAN CELL VOLUME 86.3 fL (80-100); MEAN CORPUSCULAR HEMOGLOBIN 29.5 pg (25-34); NEUT % 89.5 %; PLATELET COUNT 215 K/uL (130-400); RED BLOOD COUNT 3.66 M/uL (4.2-5.4)
[2016-08-19] MEDS: ENOXAPARIN 40 MG/0.4 ML SYR SQ SCH ×3 (09:00→09:39)
[2016-08-19 09:09] LABS: COMPLETE YES; MEAN CORPUSCULAR HGB CONC 34.2 g/dl (32-36)
[2016-08-19] MEDS: BuPROPion SR 150 MG TABCR PO SCH ×2 (09:12→20:54)
[2016-08-19] MEDS: DOCUSATE SODIUM 100 MG CAP PO SCH ×2 (09:12→20:54)
[2016-08-19] MEDS: ALPRAZOLAM 0.5 MG TAB PO SCH ×4 (09:18→20:55)
[2016-08-19 09:48] LABS: BUN/CREATININE RATIO 21.4 (10-20); CALCIUM 8.9 mg/dl (8.5-10.1); CREATININE 0.51 mg/dl (0.60-1.20); MAGNESIUM 1.8 mg/dl (1.8-2.4); POTASSIUM 4.3 mmol/L (3.5-5.1)
--- NOTE | 2016-08-19 13:52 | DIAGNOSTIC IMAGING REPORT ---
CHEST ONE VIEW PORTABLE CLINICAL HISTORY: atelectasis dyspnea COMPARISON STUDY: No previous studies for comparison. FINDINGS: Interval reinflation of the right hemithorax. Improved aeration of the right hemithorax. Persistent consolidative and/or elusion change right base. IMPRESSION: Improved aeration right hemithorax with complete reinflation of the right lung. Electronically signed by: Rodolfo Reilly M.D. 08/19/2016 1:50 PM Dictated Date/Time: 08/19/2016 1:49 PM
[2016-08-19] MEDS: NICOTINE 21 MG/24 HR TDSY TD SCH (14:00)
[2016-08-19] MEDS: PIPERACILL/TAZOBAC IV 3.375 GM in DEXTROSE 5% 100ML 100 ML IV SCH ×2 (14:24→22:28)
[2016-08-19] MEDS ORDERED: GUAIFENESIN 600 MG TABCR PO ONE (14:30)
[2016-08-19] MEDS: TRAZODONE HCL 50 MG TAB PO SCH (20:54)
[2016-08-19] MEDS: ESCITALOPRAM OXALATE 20 MG TAB PO SCH (20:54)
[2016-08-19] MEDS: GUAIFENESIN 600 MG TABCR PO SCH (21:52)
[2016-08-20] VITALS (22 sets, daily range): BP systolic 83–116; BP diastolic 52–76; PULSE 83–105; TEMP 36.4–37.6; O2SAT 83–100
[2016-08-20] MEDS: ACETAMINOPHEN IV 1,000 MG in EMPTY BAG 0 ML IV SCH ×3 (05:54→21:16)
[2016-08-20] MEDS: PIPERACILL/TAZOBAC IV 3.375 GM in DEXTROSE 5% 100ML 100 ML IV SCH ×3 (05:59→21:45)
[2016-08-20] MEDS ORDERED: FENTANYL CITRATE INJ 50 MCG/1 ML 2 ML VIAL IV ONE (07:42)
[2016-08-20] MEDS ORDERED: MIDAZOLAM HCL 5 MG/ML 1 ML VIAL IV ONE (07:42)
[2016-08-20] MEDS ORDERED: LIDOCAINE HCL 2% LOCAL 50ML VIAL INFIL ONE (07:42)
[2016-08-20] MEDS ORDERED: LIDOCAINE 4% W/AFRIN NASAL SOLN 4ML ONE (07:42)
--- NOTE | 2016-08-20 08:01 | DIAGNOSTIC IMAGING REPORT ---
CHEST ONE VIEW PORTABLE CLINICAL HISTORY: pneumothorax COMPARISON STUDY: 08/19/2016 FINDINGS: Postsurgical changes are present on the right. There is no change the position right-sided chest tube. There are few tiny air droplets of pleural air. There is right-sided pleural thickening/fluid. There are diffuse right lung airspace opacities. There is right-sided volume loss.[ IMPRESSION: Slight increase in the right-sided pleural fluid/thickening. Tiny air droplets within the right pleural space. Diffuse right lung airspace opacities. Electronically signed by: Bentley Veloz M.D. 08/20/2016 8:00 AM Dictated Date/Time: 08/20/2016 7:59 AM
[2016-08-20] MEDS: OXYCODONE HCL IR 5 MG TAB (IMMEDIATE RELEASE) PO PRN (08:10)
[2016-08-20] MEDS: KETOROLAC TROMETHAMINE 30 MG/ML VIAL IV PRN ×2 (08:10→14:12)
[2016-08-20] MEDS ORDERED: SOD PHOSPHATE/SOD BIPHOSPHATE ENEMA 132 ML BTL PR PRN (08:15)
[2016-08-20] MEDS ORDERED: BISACODYL 10 MG SUPP PR PRN (08:15)
--- NOTE | 2016-08-20 08:44 | Procedure Note ---
Pre-Mod Sedation Assessment General Date of Moderate Sedation: Aug 20, 2016. Vital Signs: Vital Signs Past 12 Hours Date Time Temp Pulse Resp B/P Pulse Ox O2 Delivery O2 Flow Rate FiO2 08/20/16 08:15 36.7 105 17 112/52 99 Room Air 2.0 102 08/20/16 07:42 36.7 102 17 112/52 99 Nasal Cannula 2.0 08/20/16 04:16 37.6 105 16 116/72 94 Nasal Cannula 2.0 08/19/16 23:22 Nasal Cannula 2.0 08/19/16 23:16 37.0 108 14 101/64 93 Nasal Cannula 2.0 Pre-Sedation Airway Assessment Oral Cavity: Dentures Short Thick Neck: No Hx of Sleep Apnea: No Smoking Status: Current Every Day Smoker Notes The planned sedation has been discussed with the patient and consent obtained. I have identified the patient, determined the appropriateness of sedation and have assessed the patient immediately prior to the procedure. All medicine(s) and interventions are by my order.
--- NOTE | 2016-08-20 08:52 | SURGERY PROGRESS NOTE ---
DATE: 08/20/2016 DATE: 08/20/2016. Ms. Clement was seen today, postop day 3 status post a midline sternotomy with a right upper lobectomy. The patient has had some difficulty with pain and has really been unable to cough to clear her secretions. She had almost total collapse of her remaining right middle lobe, right lower lobe yesterday; however, with aggressive pulmonary toilet, ambulation and incentive spirometry her lung did expand better; however this morning I am concerned about the appearance of the left middle lobe and lower lobe from an infiltrated standpoint. I am going to take her down for a therapeutic bronchoscopy this morning. She is agreeable. We discussed it in detail.
[2016-08-20] MEDS: ALPRAZOLAM 0.5 MG TAB PO SCH ×4 (09:00→20:28)
--- NOTE | 2016-08-20 09:47 | DIAGNOSTIC IMAGING REPORT ---
CHEST 2 VIEWS ROUTINE CLINICAL HISTORY: Pulmonary nodule. Study subsequent to fiber optic bronchoscopy. COMPARISON STUDY: Earlier in the day FINDINGS: Postsurgical changes are again evident on the right. There are postsurgical changes of a midline sternotomy. There is right-sided pleural thickening/fluid. There is slight improvement in the right lung airspace opacities. There are subtle peripheral left lung airspace opacities. There is no pneumothorax.[ IMPRESSION: 1. No evidence of pneumothorax status post bronchoscopy 2. Subtle left midlung zone airspace opacities 3. Postsurgical changes in the right with pleural fluid/thickening, right-sided chest tube, and right lung airspace opacities Electronically signed by: Bentley Veloz M.D. 08/20/2016 9:46 AM Dictated Date/Time: 08/20/2016 9:45 AM
[2016-08-20] MEDS: ENOXAPARIN 40 MG/0.4 ML SYR SQ SCH (09:56)
[2016-08-20] MEDS: NICOTINE 21 MG/24 HR TDSY TD SCH (09:56)
[2016-08-20] MEDS: GABAPENTIN 100 MG CAP PO SCH ×3 (10:00→20:24)
--- NOTE | 2016-08-20 11:07 | OPERATIVE REPORT ---
DATE OF OPERATION: 08/20/2016 PREOPERATIVE DIAGNOSES: 1. Retained secretions with atelectasis, right middle lobe and right lower lobe. 2. Status post midline sternotomy with right upper lobectomy for a very large right upper lobe nonsmall cell lung cancer. POSTOPERATIVE DIAGNOSES: Same. PROCEDURE: Therapeutic fiberoptic bronchoscopy. SURGEON: Dr. Ordonez. BALE STACKER: Shukri Castle, respiratory therapy. SPECIFICS OF PROCEDURE: The patient was brought down to the bronch suite. After appropriate timeout and consents had been obtained, Versed and fentanyl were given. When she was a bit more relaxed, we placed lidocaine jelly in both nares and sprayed both with lidocaine spray and nebulizers. I then went down her right naris without difficulty. She did have some secretions in her nasal area which were quite hard, which we irrigated out and removed with the bronchoscope. I then reinserted this and went easily down to the trachea and she did have a yellow sputum. I suctioned this out for culture right away. I then irrigated out and removed and suctioned out some thick yellow sputum from the bronchus intermedius as well as the right middle lobe and right upper lobe bronchi. These airways appeared widely patent. The bronchial suture line was flushed with the bronchus intermedius and mainstem bronchus for the right upper lobe. I then went into the left side with very little sputum, we suctioned this out and irrigated out. She tolerated this procedure quite well and actually coughed quite hard which was good. She tolerated it well. A chest x-ray is pending at this time. We removed the bronchoscope without difficulty without bleeding. I attest to the content of the Intraoperative Record and any orders documented therein. Any exceptio ns are noted below.
[2016-08-20] MEDS: GUAIFENESIN 600 MG TABCR PO SCH ×2 (12:28→20:23)
[2016-08-20] MEDS: BuPROPion SR 150 MG TABCR PO SCH ×2 (12:29→20:24)
[2016-08-20] MEDS: DOCUSATE SODIUM 100 MG CAP PO SCH ×2 (12:29→20:21)
[2016-08-20] MEDS: POLYETHYLENE (MIRALAX) 17 GM PACK PO SCH (12:33)
[2016-08-20] MEDS: TRAZODONE HCL 50 MG TAB PO SCH (20:22)
[2016-08-20] MEDS: ESCITALOPRAM OXALATE 20 MG TAB PO SCH (20:23)
[2016-08-21 03:20] VITALS: BP 94/63; PULSE 92; TEMP 36.9; O2SAT 98
[2016-08-21] MEDS: OXYCODONE HCL IR 5 MG TAB (IMMEDIATE RELEASE) PO PRN ×3 (04:16→14:00)
[2016-08-21] MEDS: ACETAMINOPHEN IV 1,000 MG in EMPTY BAG 0 ML IV SCH ×3 (05:55→21:44)
[2016-08-21] MEDS: PIPERACILL/TAZOBAC IV 3.375 GM in DEXTROSE 5% 100ML 100 ML IV SCH ×3 (06:18→21:48)
[2016-08-21 07:20] VITALS: BP 94/60; PULSE 93; TEMP 36.6; O2SAT 97
--- NOTE | 2016-08-21 07:47 | DIAGNOSTIC IMAGING REPORT ---
SINGLE VIEW CHEST CLINICAL HISTORY: Status post right upper lobe resection. FINDINGS: An AP, portable, upright chest radiograph is compared to study dated and correlated with chest CT dated 07/23/2016. The examination is degraded by portable technique and patient rotation. The patient is status post midline sternotomy. The cardiomediastinal silhouette is normal as visualized. There is mild atherosclerotic calcification of the thoracic aorta. Emphysema and chronic interstitial thickening are similar to previous. Again seen are postoperative changes from right upper lobe pulmonary resection. A right sided chest tube is unchanged in position. Pleural fluid is again noted at the right lung base, and there are patchy airspace opacities throughout the right lung. Loculated pleural fluid is suspect in the right upper lung. Developing airspace opacities are suspected in the left upper and left lower lobes. No pneumothorax is seen. The skeletal structures are osteopenic. The bony thorax is grossly intact. IMPRESSION: 1. Again seen are postoperative changes from right upper lobe resection. A right-sided chest tube is unchanged in position. No pneumothorax is seen. 2. Pleural fluid is present at the right lung base and in the right upper lung. 3. Emphysema. 4. There are airspace opacities throughout the right lung, and developing patchy airspace consolidation is questioned in the left upper lobe and at the left lung base. Clinical correlation will be required. Electronically signed by: Deven Charles M.D. 08/21/2016 7:45 AM Dictated Date/Time: 08/21/2016 7:42 AM
[2016-08-21 08:05] LABS: HEMATOCRIT 24.8 % (37-47); MEAN CELL VOLUME 85.5 fL (80-100); MEAN CORPUSCULAR HEMOGLOBIN 29.7 pg (25-34); MEAN CORPUSCULAR HGB CONC 34.7 g/dl (32-36); MEAN PLATELET VOLUME 10.5 fL (7.4-10.4); PLATELET COUNT 205 K/uL (130-400); WHITE BLOOD COUNT 12.36 K/uL (4.8-10.8)
[2016-08-21 08:37] LABS: CREATININE 0.45 mg/dl (0.60-1.20)
[2016-08-21] MEDS: DOCUSATE SODIUM 100 MG CAP PO SCH ×2 (09:25→21:44)
[2016-08-21] MEDS: GUAIFENESIN 600 MG TABCR PO SCH ×2 (09:26→21:44)
[2016-08-21] MEDS: POLYETHYLENE (MIRALAX) 17 GM PACK PO SCH (09:26)
[2016-08-21] MEDS: BuPROPion SR 150 MG TABCR PO SCH ×2 (09:26→21:44)
[2016-08-21] MEDS: ALPRAZOLAM 0.5 MG TAB PO SCH ×4 (09:26→21:44)
[2016-08-21] MEDS: GABAPENTIN 100 MG CAP PO SCH ×3 (09:26→21:44)
[2016-08-21] MEDS: ENOXAPARIN 40 MG/0.4 ML SYR SQ SCH (09:27)
[2016-08-21] MEDS: NICOTINE 21 MG/24 HR TDSY TD SCH (09:27)
[2016-08-21] MEDS ORDERED: FUROSEMIDE INJ 10 MG in SYRINGE 0 ML IV ONE (11:00)
--- NOTE | 2016-08-21 11:17 | SURGERY PROGRESS NOTE ---
DATE: 08/21/2016 Ms. Clement is seen today. She looks much better. Her x-ray looks better, although I would prefer for her to have clearing of the opacifications we see. Quite frankly, I am happier with her. We are weaning down her oxygen. She was up as high as 6 liters yesterday. She is down to 3-1/2 liters today with high saturations and we will see if we can get her down further. She is not tachypneic. She put out about 500 mL of serous fluid through her chest tube yesterday but her x-ray looks better. She has put out very little over the last 8 hours. Her x-ray is better with clearing of some of these opacities although appears that she may have some pleural fluid. She does not have an air leak. She sounds much better on auscultation. She still has some sputum but I am happy with her on auscultation. Her incision is clean. Her white count today is 12,306 with a hemoglobin of 8.6. Her creatinine is 0.54. In addition, her weight was up a bit. We are going to check another weight today but she may need to be diuresed gently. We have her on Zosyn and there are rare gram-positive cocci on the bronchoscopy sputum collection yesterday. ASSESSMENT AND PLAN: Postoperative day #4. I reviewed her pathology and it is very interesting. This is 10 cm tumor; however, all of our margins are negative. The concern is whether or not she has N1 disease or not. There was a lymph node involved; however, this may have been contiguous spread by the tumor. We are going to discuss this with the cancer conference this week on 08/24/2016. She is definitely going to need chemotherapy because of the size of her cancer but at this point I am quite happy with her progress. ADAM
[2016-08-21 12:08] VITALS: BP 80/50; PULSE 98; TEMP 36.6; O2SAT 96
[2016-08-21 16:00] VITALS: BP 90/50; PULSE 102; TEMP 36.7; O2SAT 95
[2016-08-21 19:33] VITALS: BP 112/69; PULSE 109; TEMP 37.3; O2SAT 95
[2016-08-21] MEDS: ESCITALOPRAM OXALATE 20 MG TAB PO SCH (21:43)
[2016-08-21] MEDS: TRAZODONE HCL 50 MG TAB PO SCH (21:44)
[2016-08-21 23:05] VITALS: BP 99/65; PULSE 93; TEMP 37.1; O2SAT 94
[2016-08-22 05:35] LABS: BASO % 0.2 %; BASO ABS # 0.02 K/uL (0-0.2); EOS % 1.8 %; HEMATOCRIT 24.9 % (37-47); IG% 0.2 %; LYMPH % 7.8 %; LYMPH ABS # 0.99 K/uL (1.2-3.4); MEAN CELL VOLUME 86.2 fL (80-100); MEAN CORPUSCULAR HEMOGLOBIN 29.4 pg (25-34); MEAN CORPUSCULAR HGB CONC 34.1 g/dl (32-36); MEAN PLATELET VOLUME 9.9 fL (7.4-10.4); MONO % 7.5 %; NEUT % 82.5 %; PLATELET COUNT 254 K/uL (130-400); RED BLOOD COUNT 2.89 M/uL (4.2-5.4); WHITE BLOOD COUNT 12.74 K/uL (4.8-10.8)
[2016-08-22] MEDS: ACETAMINOPHEN IV 1,000 MG in EMPTY BAG 0 ML IV SCH ×3 (05:38→21:49)
[2016-08-22 05:58] LABS: COMPLETE YES
[2016-08-22] MEDS: PIPERACILL/TAZOBAC IV 3.375 GM in DEXTROSE 5% 100ML 100 ML IV SCH ×3 (06:00→22:21)
[2016-08-22 06:07] LABS: POTASSIUM 3.5 mmol/L (3.5-5.1)
[2016-08-22 06:53] VITALS: BP 120/80; PULSE 99; TEMP 36.7; O2SAT 93
--- NOTE | 2016-08-22 07:36 | DIAGNOSTIC IMAGING REPORT ---
CHEST ONE VIEW PORTABLE CLINICAL HISTORY: Lobectomy COMPARISON STUDY: Chest radiograph August 21, 2016. FINDINGS: A right chest tube is in place. There is right hemithorax volume loss with postsurgical findings within the right hemithorax. Dense right lower lung opacity is noted. There is asymmetric interstitial thickening within the right lung. There is a suspected right hydropneumothorax. Interstitial thickening within the left lung persists. There are median sternotomy wires. Cardiac size is stable. IMPRESSION: 1. Suspected loculated right hydropneumothorax. Right chest tube in place. 2. Persistent dense right lower lung opacities which may reflect atelectasis or consolidation. 3. Interstitial thickening within the left lung which could reflect pulmonary edema or an infectious process. Electronically signed by: Sage Valencia M.D. 08/22/2016 7:34 AM Dictated Date/Time: 08/22/2016 7:32 AM
[2016-08-22] MEDS: NICOTINE 21 MG/24 HR TDSY TD SCH (09:40)
[2016-08-22] MEDS: ENOXAPARIN 40 MG/0.4 ML SYR SQ SCH (09:41)
[2016-08-22] MEDS: MoRPHine SULFATE 2 MG/ML CARP IV PRN ×2 (10:01→17:16)
[2016-08-22] MEDS: GUAIFENESIN 600 MG TABCR PO SCH ×2 (10:21→20:42)
[2016-08-22] MEDS: DOCUSATE SODIUM 100 MG CAP PO SCH ×2 (10:21→20:42)
[2016-08-22] MEDS: BuPROPion SR 150 MG TABCR PO SCH ×2 (10:21→20:41)
[2016-08-22] MEDS: POLYETHYLENE (MIRALAX) 17 GM PACK PO SCH (10:21)
[2016-08-22] MEDS: GABAPENTIN 100 MG CAP PO SCH ×3 (10:22→20:42)
[2016-08-22] MEDS: ALPRAZOLAM 0.5 MG TAB PO SCH ×4 (10:32→20:41)
--- NOTE | 2016-08-22 11:59 | DIAGNOSTIC IMAGING REPORT ---
CHEST 2 VIEWS ROUTINE CLINICAL HISTORY: s/p chest tube removal COMPARISON STUDY: Chest radiograph August 22, 2016 at 7:26 AM FINDINGS: There are median sternotomy wires. Post surgical findings within the right hemithorax are noted right hemithorax volume loss is noted. There has been interval removal of the right-sided chest tube. A right hydropneumothorax, possibly loculated, is noted. The amount of pleural gas has slightly increased. Right lower lung and mid lung airspace opacity persists. There is mild interstitial thickening and opacities within the left lung. IMPRESSION: 1. Interval removal of right-sided chest tube. Right hydropneumothorax, as described above. The amount of pleural gas has mildly increased. 2. Persistent dense right lung airspace opacity with asymmetric interstitial thickening and volume loss. 3. No significant change in left lung interstitial thickening with patchy opacities. Electronically signed by: Sage Valencia M.D. 08/22/2016 11:57 AM Dictated Date/Time: 08/22/2016 11:55 AM
--- NOTE | 2016-08-22 12:21 | SURGERY PROGRESS NOTE ---
DATE: 08/22/2016 Ms. Clement is seen today on 08/22/2016. She is now postoperative day #5 status post midline sternotomy with right upper lobectomy with mediastinal lymph node dissection. She looks good. She sounds better to me. She is moving air better. She still has some rhonchi even on the left. She is not able to clear her cough properly. She had very little drainage out with no air leak and I think her chest x-ray looks a bit better today. I removed her chest tube. I am going to keep her in the hospital, and see if we can get her oxygen down. She is still requiring 4 liters of O2. Her white count is 12,740, the hemoglobin is stable at 8.5. Her potassium is down at 3.5 and we did give her Lasix. I think her x-ray is definitely better. She does not have any clinical evidence of infection in her chest. Hopefully, these are simply postoperative changes. She needs aggressive pulmonary toilet. Hopefully, we will be able to get her oxygen requirements down and get her home in the next day or so. ADAM
[2016-08-22 14:55] VITALS: BP 91/59; PULSE 96; TEMP 36.7; O2SAT 94
[2016-08-22 15:15] VITALS: O2SAT 94
[2016-08-22] MEDS: ESCITALOPRAM OXALATE 20 MG TAB PO SCH (20:41)
[2016-08-22] MEDS: TRAZODONE HCL 50 MG TAB PO SCH (20:43)
[2016-08-22 22:49] VITALS: BP 111/73; PULSE 106; TEMP 36.7; O2SAT 93
[2016-08-22] MEDS: OXYCODONE HCL IR 5 MG TAB (IMMEDIATE RELEASE) PO PRN (23:46)
[2016-08-23] VITALS (20 sets, daily range): BP systolic 90–122; BP diastolic 59–85; PULSE 85–103; TEMP 36.4–37.2; O2SAT 89–100
[2016-08-23] MEDS: PIPERACILL/TAZOBAC IV 3.375 GM in DEXTROSE 5% 100ML 100 ML IV SCH ×3 (05:28→21:34)
[2016-08-23] MEDS: ACETAMINOPHEN IV 1,000 MG in EMPTY BAG 0 ML IV SCH ×3 (05:29→21:21)
--- NOTE | 2016-08-23 08:30 | Surgery Progress Note ---
Subjective Date of Service: Aug 23, 2016. Pt. denies CP or SOB. She has cough but not able to bring up much mucous. No shakes, chills, fevers. No BM since surgery, but denies N/V or abdominal pain. Objective Vitals Date Time Temp Pulse Resp B/P Pulse Ox O2 Delivery O2 Flow Rate FiO2 08/23/16 07:56 36.8 91 21 95/63 96 Nasal Cannula 4.0 08/23/16 07:07 36.4 93 16 103/69 95 Nasal Cannula 3.0 08/22/16 23:30 Nasal Cannula 3.0 08/22/16 22:49 36.7 106 16 111/73 93 Nasal Cannula 3.0 08/22/16 15:15 94 Nasal Cannula 3.0 08/22/16 14:55 36.7 96 18 91/59 94 Nasal Cannula 3.0 08/22/16 11:04 Nasal Cannula 3.5 Physical Exam General: + well developed, + well nourished CV: + RRR Pulmonary: + rhonchi (noted bilaterally ), No accessory muscle use, No respiratory distress Abdomen: + non tender, + non-distended, + soft Extremities: No calf tenderness Neurologic: + marine steam fitter II-XII intact, + alert & oriented x 3 Pathology surgical path shows adenocarcinoma Assessment & Plan 56 year old female s/p median sternotomy with RUL (08/18/16) -continue pain control measures -HYPOXIA -pt. required FOB with BAL on (08/20/16) due to atelectasis/mucous plugging: -cultures from this procedure are (-) for bacteria, fungus, and AFB -pt. continues to require oxygen -discussed the importance of aggressive pulmonary toilet (IS, flutter valve, coughing, deep breathing) -continue mobilization -will check CXR this am CONSTIPATION -abdomen exam is benign -bowel regimen is in place (fleets, miralax, dulcolax, colace) OTHER -lovenox for DVT prevention -d/c once oxygen requirements decreased
--- NOTE | 2016-08-23 08:38 | DIAGNOSTIC IMAGING REPORT ---
CHEST ONE VIEW PORTABLE CLINICAL HISTORY: hypoxia dyspnea COMPARISON STUDY: 08/22/2016 FINDINGS: ] In the right base are less well-defined currently. Opacification right hemithorax in general is similar. Left lung shows moderate accentuation parenchymal markings throughout also essentially unchanged. IMPRESSION: Right hydropneumothorax unchanged with Persistent increase in opacification right hemithorax. 2. Persistent parenchymal infiltrative changes left hemithorax. Electronically signed by: Rodolfo Reilly M.D. 08/23/2016 8:37 AM Dictated Date/Time: 08/23/2016 8:36 AM
[2016-08-23] MEDS: POLYETHYLENE (MIRALAX) 17 GM PACK PO SCH (08:47)
[2016-08-23] MEDS: DOCUSATE SODIUM 100 MG CAP PO SCH ×2 (08:47→21:19)
[2016-08-23] MEDS: GUAIFENESIN 600 MG TABCR PO SCH ×2 (08:48→21:19)
[2016-08-23] MEDS: GABAPENTIN 100 MG CAP PO SCH ×3 (08:48→21:20)
[2016-08-23] MEDS: BuPROPion SR 150 MG TABCR PO SCH ×2 (08:49→21:19)
[2016-08-23] MEDS: NICOTINE 21 MG/24 HR TDSY TD SCH (08:51)
[2016-08-23] MEDS: ALPRAZOLAM 0.5 MG TAB PO SCH ×4 (08:57→21:00)
[2016-08-23] MEDS: ENOXAPARIN 40 MG/0.4 ML SYR SQ SCH (09:15)
[2016-08-23] MEDS: OXYCODONE HCL IR 5 MG TAB (IMMEDIATE RELEASE) PO PRN ×2 (09:16→19:52)
--- NOTE | 2016-08-23 09:41 | SURGERY PROGRESS NOTE ---
DATE: 08/23/2016 Ms. Clement is seen today on 08/23/2016. She is unable to cough. She can cough fairly well and get the sputum up to her upper trachea, but she cannot get it up any further. She states she has been like this her whole life. We are going to perform a bronchoscopy on her today. I was unhappy with her x-ray after we pulled the tube yesterday; however, we let her sit overnight and she seems better today. I see no evidence of any air fluid levels or pneumothorax today. I think she has a bit better aeration at the base also on the right. Unfortunately, she continues to have parenchymal changes and I think that a bronchoscopy is going to be helpful. I would be aggressive with Ms. Clement if there are any issues with fluid in her chest or other problems. She certainly does not appear to have any evidence of infection as she is afebrile and her vitals are stable; however, she is still requiring 3 liters of O2 and we are trying to wean that down. We will continue to push her from a pulmonary toilet standpoint.
--- NOTE | 2016-08-23 14:19 | Procedure Note ---
Pre-Mod Sedation Assessment General Date of Moderate Sedation: Aug 23, 2016. Vital Signs: Vital Signs Past 12 Hours Date Time Temp Pulse Resp B/P Pulse Ox O2 Delivery O2 Flow Rate FiO2 08/23/16 14:00 91 17 96/63 100 Mask 6.0 28 08/23/16 13:43 92 17 104/66 100 Nasal Cannula 3.0 28 08/23/16 13:10 36.8 97 20 109/70 96 Nasal Cannula 3.0 08/23/16 09:26 96 Nasal Cannula 3.0 08/23/16 09:01 Nasal Cannula 3.0 08/23/16 07:56 36.8 91 21 95/63 96 Nasal Cannula 3.0 08/23/16 07:07 36.4 93 16 103/69 95 Nasal Cannula 3.0 Pre-Sedation Airway Assessment Oral Cavity: Dentures Short Thick Neck: No Hx of Sleep Apnea: No Smoking Status: Current Every Day Smoker Notes The planned sedation has been discussed with the patient and consent obtained. I have identified the patient, determined the appropriateness of sedation and have assessed the patient immediately prior to the procedure. All medicine(s) and interventions are by my order.
[2016-08-23] MEDS ORDERED: NURSING VERBAL MED ORDER ONE (14:45)
[2016-08-23] MEDS ORDERED: FENTANYL CITRATE INJ 50 MCG/1 ML 2 ML VIAL IV ONE (15:00)
[2016-08-23] MEDS ORDERED: MIDAZOLAM HCL 5 MG/ML 1 ML VIAL IV ONE (15:00)
--- NOTE | 2016-08-23 15:23 | DIAGNOSTIC IMAGING REPORT ---
CHEST 2 VIEWS ROUTINE CLINICAL HISTORY: post bronch postprocedural evaluation COMPARISON STUDY: 08/23/2016 8:26 AM FINDINGS: Improved aeration right lung post bronchoscopy. Persistent consolidative change right base with masslike changes of the right para mediastinal lines. Left lung shows slight chronic interstitial prominence. IMPRESSION: Improved aeration right lung. No evidence pneumothorax status post bronchoscopy. Electronically signed by: Rodolfo Reilly M.D. 08/23/2016 3:21 PM Dictated Date/Time: 08/23/2016 3:20 PM
--- NOTE | 2016-08-23 20:01 | OPERATIVE REPORT ---
DATE OF OPERATION: 08/23/2016 PROCEDURE: Therapeutic fiberoptic bronchoscopy. SURGEON: Dr. Ordonez. RAD TECHNOLOGIST: Shukri Castle in respiratory therapy. ANESTHESIA: Sedation with local. SPECIFICS OF PROCEDURE: Chitra Clement is a 56-year-old who is now 6 days status post midline sternotomy with a right upper lobectomy for a huge right upper lung cancer. The patient had some difficulties with pulmonary toilet postoperatively. We have been ambulating her and working with incentive spirometer and adjusting her pain medications. I did a fiberoptic bronchoscopy a couple days ago and cleared her out with some fairly purulent sputum and I was disappointed yesterday afternoon and this morning to see that she is still having some opacification. She had a significant amount of pleural sputum which was sent for culture, we saw really no growth except for some early light growth of gram positive cocci. Today when I evaluated her, she was just not able to get the phlegm out of her central airways. For this reason, I took her down and did a bronchoscopy. She did have some thin whitish sputum which was fairly copious. I suctioned out a great deal from the right mainstem bronchus and right lower lobe and middle lobe bronchus. I irrigated it clear. We clearly saw none on the left side. We irrigated this on the right until clear. The right upper lobe stump looked fine. She tolerated it quite well. She was sent back to the floor. A chest x-ray is pending. I attest to the content of the Intraoperative Record and any orders documented therein. Any exceptio ns are noted below.
[2016-08-23] MEDS: ESCITALOPRAM OXALATE 20 MG TAB PO SCH (21:19)
[2016-08-23] MEDS: TRAZODONE HCL 50 MG TAB PO SCH (21:20)
[2016-08-24] VITALS (19 sets, daily range): BP systolic 98–121; BP diastolic 57–77; PULSE 89–108; TEMP 35.8–37.6; O2SAT 90–99
[2016-08-24] MEDS: PIPERACILL/TAZOBAC IV 3.375 GM in DEXTROSE 5% 100ML 100 ML IV SCH ×3 (05:46→22:46)
[2016-08-24] MEDS: ACETAMINOPHEN IV 1,000 MG in EMPTY BAG 0 ML IV SCH ×3 (05:46→22:17)
--- NOTE | 2016-08-24 07:25 | DIAGNOSTIC IMAGING REPORT ---
CHEST ONE VIEW PORTABLE HISTORY: hypoxia COMPARISON: Chest 08/23/2016. FINDINGS: Progressive right lung opacification and partially loculated moderate right pleural effusion. Interstitial thickening within the left lung has also progressed. The heart is stable in size. Poststernotomy changes. IMPRESSION: 1. Progressive right lung opacification and slight increase in size in the loculated moderate right pleural effusion. 2. Progressive interstitial thickening which favors developing congestive change. Electronically signed by: Graham Samuel M.D. 08/24/2016 7:23 AM Dictated Date/Time: 08/24/2016 7:22 AM
[2016-08-24 07:36] LABS: HEMATOCRIT 24.1 % (37-47); MEAN CELL VOLUME 85.2 fL (80-100); MEAN CORPUSCULAR HEMOGLOBIN 29.3 pg (25-34); MEAN CORPUSCULAR HGB CONC 34.4 g/dl (32-36); MEAN PLATELET VOLUME 9.8 fL (7.4-10.4); PLATELET COUNT 329 K/uL (130-400); RED BLOOD COUNT 2.83 M/uL (4.2-5.4); WHITE BLOOD COUNT 14.39 K/uL (4.8-10.8)
[2016-08-24 08:13] LABS: CREATININE 0.38 mg/dl (0.60-1.20)
[2016-08-24] MEDS: GUAIFENESIN 600 MG TABCR PO SCH ×2 (08:28→21:11)
[2016-08-24] MEDS: GABAPENTIN 100 MG CAP PO SCH ×3 (08:29→21:11)
[2016-08-24] MEDS: DOCUSATE SODIUM 100 MG CAP PO SCH ×2 (08:29→21:10)
[2016-08-24] MEDS: BuPROPion SR 150 MG TABCR PO SCH ×2 (08:30→21:11)
[2016-08-24] MEDS: ENOXAPARIN 40 MG/0.4 ML SYR SQ SCH (08:30)
[2016-08-24] MEDS: NICOTINE 21 MG/24 HR TDSY TD SCH (08:30)
[2016-08-24] MEDS: POLYETHYLENE (MIRALAX) 17 GM PACK PO SCH (08:31)
[2016-08-24] MEDS: ALPRAZOLAM 0.5 MG TAB PO SCH ×4 (08:31→21:12)
--- NOTE | 2016-08-24 09:25 | SURGERY PROGRESS NOTE ---
DATE: 08/24/2016 Ms. Clement is seen today. Her x-ray looked much improved after she had her therapeutic bronchoscopy yesterday. She did have some sputum in the right middle lobe and right lower lobe bronchi. It is thinner than it was noted a few days ago. She had nothing on the left side. The patient's left side is pretty clear today except for few rhonchi and some mild end expiratory wheezing. She has better aeration than she did yesterday morning, but she still is not aerating as well as I would like on the right. I am also concerned about her x-rays as she has been more of an infiltrative pattern in the right middle lobe and right lower lobe. She has no fevers. Her A-a gradient is not really improving. At 4 liters, she was 98 this morning, I have turned her down to 2 and she is maintaining 90% saturations. I do not think this patient has congestive heart failure, but her BUN is down to 0.38 and I am going to go ahead and give her some Lasix today. I am also going to bronchoscope her this afternoon.
[2016-08-24] MEDS: POTASSIUM CHLR 10 MEQ / WTR 10 MEQ in PREMIXED WATER 100 ML IV SCH ×2 (09:44→11:41)
[2016-08-24] MEDS ORDERED: FUROSEMIDE INJ 20 MG in SYRINGE 0 ML IV ONE (10:00)
--- NOTE | 2016-08-24 12:10 | PULMONARY CONSULTATION ---
DATE OF CONSULTATION: 08/24/2016 DATE OF CONSULTATION: 08/24/2016. TIME: 11:00 a.m. REPORT OF CONSULTATION: The patient was seen in room 380 bed 1. She is a 56-year-old female who was admitted to the hospital on 08/17/2016 for the purpose of having surgery for a right upper lobe lung mass. This was a nonsmall cell carcinoma. It measured 7 cm. She states she has had some degree of cough and shortness of breath for about 3 years. In June, she was not feeling well. She went to an urgent care to get a chest x-ray that apparently was normal. The patient subsequently was referred to Dr. Ordonez. He did bronchoscopy with biopsies. He also did an ultrasound. The patient did have a PET scan done preoperatively. She reportedly had pulmonary function testing done at [facility] and was reported to have COPD. I do not have those exact records at this time however. She underwent a right upper lobectomy on 08/17/2016. A sternal incision was done. She tolerated the procedure well. There was no immediate problems postoperatively. She has developed volume loss and increased opacification in the right chest since the surgery. Dr. Ordonez did therapeutic bronchoscopy on 08/20/2016 and again on 08/23/2016. There was removal of a modest quantity of secretions. Her x-ray today still shows volume loss. He is anticipating doing another bronchoscopy today. Today's x-ray reports progressive right lung opacification with a slight increase in size of the loculated moderate right pleural effusion. They also reported progressive interstitial thickening favoring congestive changes. I am not convinced that she has congestive changes with certainty however. She has had a whole series of x-rays on a regular basis since admission. The patient feels it is hard for her clear out secretions. She has not expectorated anything on her own. She is not having tremendous chest pain. She states it is not that she has difficulty taking a deep breath per se. She is mildly short of breath, but no worse than what she was at home. She indicated that preoperatively she would be short of breath walking up one flight of steps or short of breath walking through a store such as [employer]. She has not coughed up any blood at any time. She is not having any chills, fevers or sweats. Her appetite is fairly good. Her strength seems to be improving. PAST SURGICAL HISTORY: 1. Repair of nasal fracture. 2. Hysterectomy. PAST MEDICAL HISTORY: 1. Anxiety. 2. Depression. 3. Bronchitis. 4. Frequent pneumonias as per the patient. 5. COPD as per the report of pulmonary function test. ALLERGIES: No known allergies. FAMILY HISTORY: Sister is living, has emphysema. Mother in her 60s, breast cancer. Father and he had emphysema and breathing problems. 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 She states in the past, she had worked at a place called [employer]. 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 She was not sure if that may have bothered her at all. MEDICATIONS AT HOME: 1. Alprazolam 1 mg q.i.d. 2. Bupropion 150 mg b.i.d. 3. Escitalopram 20 mg daily. 4. Tramadol 50 mg p.r.n. 5. Trazodone 50 mg at bedtime. REVIEW OF SYSTEMS: GENERAL: The patient's energy level is fair. It is no worse than at home. NEUROLOGIC: She is not having headaches. There is no report of syncope or near syncope. OPHTHALMIC: No visual complaints. EARS, NOSE, THROAT: She has some degree of chronic nasal congestion. She feels that she still is obstructed despite having the nasal surgery. CARDIAC: No chest pain or palpitations. PULMONARY: As noted above. GASTROINTESTINAL: No complaints of nausea, vomiting or heartburn. GENITOURINARY: Denies complaints. MUSCULOSKELETAL: Not complaining of myalgias or arthralgias. She complains relatively little regarding chest wall pain from the surgery. DERMATOLOGIC: No rashes. ENDOCRINE: No lymphadenopathy. PHYSICAL EXAMINATION: VITAL SIGNS: The patient is a 56-year-old female who looks older than her chronologic age. She was cooperative, alert and oriented. She was in no distress at rest. She is afebrile with temperature of 36.7. Her maximum temperature on 08/23/2016 was 37.2. Maximum temperature since admission was near the time of admission at 37.6. HEAD, EYES, EARS, NOSE, AND THROAT: Pupils were reactive to light. Nares were congested. Mouth exam showed some white foamy mucus in the posterior pharynx. NECK: Palpation of the neck reveals no lymph nodes. The chest scar in the sternum extends up to the base of the right neck. No lymphadenopathy was noted. CHEST: The chest showed the chest scar is noted. There was diminished excursion of the chest, especially on the right. HEART: Heart rate was 95 beats per minute. The rhythm was regular. Blood pressure 99/64. Respiratory rate 16 breaths per minute. The breath sounds on the right are severely diminished compared with the left. Diffuse scattered rhonchi are heard. Oxygen saturation is 93% on 3 liters. ABDOMEN: Soft and nontender. Bowel sounds were present. EXTREMITIES: Showed no cyanosis, clubbing or edema. LABORATORY DATA: White count today is 14.39. Hemoglobin is 8.3. Platelets 329,000. Arterial blood gas was last done on 08/18/2016 showing a pH of 7.41 with a pCO2 of 39 and pO2 of 65 done on a nasal cannula with an unspecified amount of oxygen. Most recent electrolytes on the showed a sodium of 139, potassium 3.5, chloride 97, bicarbonate 34. It is notable that her prior bicarbonate level had been 25. BUN and creatinine were last done on the and they were 11 and 0.51 respectively. Review of pathology report shows the tumor size to be 10.5 cm in maximal size. It is a nonsmall cell carcinoma consistent with adenocarcinoma. The grade was poorly differentiated. There is evidence of visceral pleural invasion. The bronchial margins were negative. Vascular margins were negative. The lymph nodes did not reveal evidence of metastatic disease. IMPRESSIONS: 1. 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 2. Atelectasis. 3. Pleural effusion -- loculated. 4. Chronic obstructive pulmonary disease. COMMENTS AND RECOMMENDATIONS: The patient has significant volume loss on her x-rays. She has had 2 bronchoscopies and is to have a third today. I would suggest initiating nebulizer treatments. Will start those every 6 hours. If tomorrow's x-ray is not improved, I would suggest obtaining a CAT scan of the chest for completeness. Case was discussed with Dr. Ordonez. I spoke with the patient about the need for her to totally abstain from smoking when she leaves the hospital. She is currently on Zosyn and I am supportive of continuing that.
[2016-08-24] MEDS ORDERED: ALBUT/IPRATROP 3MG/0.5MG NEB 3 ML VIAL INH PRN (12:15)
[2016-08-24] MEDS: ALBUT/IPRATROP 3MG/0.5MG NEB 3 ML VIAL INH SCH ×3 (12:40→20:00)
[2016-08-24] MEDS ORDERED: FENTANYL CITRATE INJ 50 MCG/1 ML 2 ML VIAL IV ONE (14:15)
[2016-08-24] MEDS ORDERED: NURSING VERBAL MED ORDER ONE (14:15)
[2016-08-24] MEDS ORDERED: MIDAZOLAM HCL 5 MG/ML 1 ML VIAL IV ONE (14:15)
--- NOTE | 2016-08-24 14:27 | DIAGNOSTIC IMAGING REPORT ---
CHEST 2 VIEWS ROUTINE CLINICAL HISTORY: s/p FOB COMPARISON STUDY: 08/24/2016 0638 hours FINDINGS: Improved aeration right base. Right pleural effusion. Left lung grossly clear. Slight improvement in prominence of pulmonary vasculature. IMPRESSION: Slight improvement in aeration left hemithorax. No pneumothorax. Persistent right pleural effusion with chronic pleural and parenchymal changes right hemithorax Electronically signed by: Rodolfo Reilly M.D. 08/24/2016 2:26 PM Dictated Date/Time: 08/24/2016 2:24 PM
[2016-08-24] MEDS: TRAZODONE HCL 50 MG TAB PO SCH (21:11)
[2016-08-24] MEDS: ESCITALOPRAM OXALATE 20 MG TAB PO SCH (21:11)
[2016-08-25] VITALS (10 sets, daily range): BP systolic 95–102; BP diastolic 55–68; PULSE 93–103; TEMP 36.7–36.8; O2SAT 90–96
[2016-08-25] MEDS: ACETAMINOPHEN IV 1,000 MG in EMPTY BAG 0 ML IV SCH ×3 (05:33→21:15)
[2016-08-25] MEDS: PIPERACILL/TAZOBAC IV 3.375 GM in DEXTROSE 5% 100ML 100 ML IV SCH ×3 (05:34→21:15)
[2016-08-25] MEDS: ALBUT/IPRATROP 3MG/0.5MG NEB 3 ML VIAL INH SCH ×4 (07:11→20:17)
--- NOTE | 2016-08-25 08:17 | DIAGNOSTIC IMAGING REPORT ---
SINGLE VIEW CHEST CLINICAL HISTORY: Status post right upper lobe resection. FINDINGS: An AP, portable, upright chest radiograph is compared to study dated 08/24/16 and correlated with chest CT dated 07/23/2016. The examination is degraded by portable technique and patient rotation. The patient is status post midline sternotomy. The cardiomediastinal silhouette is normal as visualized. There is mild atherosclerotic calcification of the thoracic aorta. Emphysema and chronic interstitial thickening are similar to previous. Again seen are postoperative changes from right upper lobe pulmonary resection. There is pleural fluid at the right lung base with right basilar consolidation. This is similar to yesterday. Loculated pleural fluid is again seen tracking to the right apex. Patchy airspace opacities are again seen throughout the left lung. There is no significant left pleural effusion. No pneumothorax is seen. The skeletal structures are osteopenic. The bony thorax is grossly intact. IMPRESSION: 1. Advanced emphysema with postoperative changes from right upper lobe resection. 2. Pleural fluid is again seen at the right lung base and there is right basilar consolidation. 3. Patchy airspace opacities are again seen throughout the left lung.. Electronically signed by: Deven Charles M.D. 08/25/2016 8:16 AM Dictated Date/Time: 08/25/2016 8:11 AM
[2016-08-25 08:39] LABS: BUN/CREATININE RATIO 21.7 (10-20); CALCIUM 8.4 mg/dl (8.5-10.1); CREATININE 0.4 mg/dl (0.60-1.20); POTASSIUM 3.6 mmol/L (3.5-5.1)
[2016-08-25] MEDS: DOCUSATE SODIUM 100 MG CAP PO SCH ×2 (09:00→21:00)
[2016-08-25] MEDS: POLYETHYLENE (MIRALAX) 17 GM PACK PO SCH (09:00)
[2016-08-25] MEDS: ALPRAZOLAM 0.5 MG TAB PO SCH ×4 (09:30→21:22)
[2016-08-25] MEDS: BuPROPion SR 150 MG TABCR PO SCH ×2 (09:30→21:13)
[2016-08-25] MEDS: GUAIFENESIN 600 MG TABCR PO SCH ×2 (09:30→21:13)
[2016-08-25] MEDS: ENOXAPARIN 40 MG/0.4 ML SYR SQ SCH (09:30)
[2016-08-25] MEDS: GABAPENTIN 100 MG CAP PO SCH ×3 (09:30→21:14)
[2016-08-25] MEDS: NICOTINE 21 MG/24 HR TDSY TD SCH (09:30)
--- NOTE | 2016-08-25 17:03 | PULMONARY PROGRESS NOTE ---
DATE: 08/25/2016 DATE: 08/25/2016. TIME: 4:40 p.m. SUBJECTIVE: The patient feels much better today. She is less short of breath. We have started some nebulizer treatments and she feels these have helped a lot. Although her breathing feels better she states she has not coughed up any phlegm. I could not see a progress note from bronchoscopy yesterday. The patient told me she had the scope done, but I could not confirm that. PHYSICAL EXAMINATION: GENERAL: The patient appeared comfortable. She was very pleasant today and in good spirits. VITAL SIGNS: Temperature is 36.8. EARS, NOSE, THROAT EXAMINATION: Was unremarkable. HEART: Heart rate was 96 beats per minute. The rhythm is regular. Blood pressure was 95/55. Generally, her blood pressures tend to run on the lower side. Oxygen saturation is 90% on 3 liters. However, she had been as high as 96% on 3 liters. CHEST: Auscultation reveals improved aeration to the right compared with yesterday's exam. There was actually some improved aeration overall. No wheezing was heard. ABDOMEN: Soft and nontender. EXTREMITIES: Showed no edema. LABORATORY DATA: Electrolytes today show sodium 136, potassium 3.6, chloride 99, bicarbonate 27. BUN was 9 with a creatinine of 0.4. Calcium was 8.4. Chest x-ray done today shows perhaps slight improvement in the aeration at the right lung base. She persists with what appears to be loculated pleural fluid. The parenchymal opacities are seen at the right lung base as well. There are some patchy opacities in the left lung. IMPRESSIONS: 1. Status post right upper lobectomy for nonsmall cell carcinoma. 2. Atelectasis. 3. Right pleural effusion -- loculated. 4. Chronic obstructive pulmonary disease. COMMENTS: The patient is clinically improved. I would continue with the neb treatments. Would try to increase ambulation as much as possible. Consideration is given to doing a CAT scan of the chest. I will discuss this with Dr. Ordonez. The purpose might be to better define the opacities and clarifying what is pleural fluid compared with atelectasis or infiltrate.
[2016-08-25] MEDS: ESCITALOPRAM OXALATE 20 MG TAB PO SCH (21:12)
[2016-08-25] MEDS: TRAZODONE HCL 50 MG TAB PO SCH (21:13)
[2016-08-26] VITALS (13 sets, daily range): BP systolic 100–124; BP diastolic 63–78; PULSE 95–105; TEMP 36.6–36.8; O2SAT 76–97
[2016-08-26] MEDS: ACETAMINOPHEN IV 1,000 MG in EMPTY BAG 0 ML IV SCH ×3 (06:07→20:51)
[2016-08-26] MEDS: PIPERACILL/TAZOBAC IV 3.375 GM in DEXTROSE 5% 100ML 100 ML IV SCH (06:08)
[2016-08-26] MEDS: ALBUT/IPRATROP 3MG/0.5MG NEB 3 ML VIAL INH SCH ×4 (07:35→19:31)
--- NOTE | 2016-08-26 09:11 | SURGERY PROGRESS NOTE ---
DATE: 08/26/2016 DATE: 08/25/2016. SUBJECTIVE: Ms. Clement was seen today on 08/25/2016. I am dictating this late, it is 08/25/2016. I actually saw her in the morning and evening. She looks better to me. She states that she "feels much better." We were able to come down on her oxygen from 4 to 3 liters which is good. We can get her down to 2 at times. She sounds better to me. Her x-ray looks better, she still has decreased breath sounds and she has had some fluid in her base. We are going to check a CAT scan tomorrow and see how she looks. She still has a significant A-a gradient. Her inability to cough up her secretions is concerning. I really do not see any mechanical problems. There is some edema at the origin of the right middle lobe bronchus, but really this does not appear to be an obstructive process. I considered using steroids on her but at this point I would hold off and see how her CAT scan looks today. She may require a thoracentesis.
--- NOTE | 2016-08-26 09:19 | SURGERY PROGRESS NOTE ---
DATE: 08/26/2016 Ms. Clement is seen today. She is on 2 liters. She still does not sound as good as I would like. She has decreased breath sounds in the right. Her saturations were adequate at 90% to 91% on 2 liters. We are going to check a CAT scan to see if she has some fluid that could be potentially tapped. I will see her later today.
[2016-08-26] MEDS: DOCUSATE SODIUM 100 MG CAP PO SCH ×2 (09:41→20:58)
[2016-08-26] MEDS: POLYETHYLENE (MIRALAX) 17 GM PACK PO SCH (09:42)
[2016-08-26] MEDS: GABAPENTIN 100 MG CAP PO SCH ×3 (09:43→20:53)
[2016-08-26] MEDS: GUAIFENESIN 600 MG TABCR PO SCH ×2 (09:43→20:52)
[2016-08-26] MEDS: BuPROPion SR 150 MG TABCR PO SCH ×2 (09:43→20:54)
[2016-08-26] MEDS: ENOXAPARIN 40 MG/0.4 ML SYR SQ SCH (09:44)
[2016-08-26] MEDS: ALPRAZOLAM 0.5 MG TAB PO SCH ×4 (09:44→21:03)
[2016-08-26] MEDS: NICOTINE 21 MG/24 HR TDSY TD SCH (09:45)
--- NOTE | 2016-08-26 09:50 | DIAGNOSTIC IMAGING REPORT ---
CT OF THE CHEST WITHOUT IV CONTRAST CLINICAL HISTORY: Hypoxia. Pulmonary nodule. Lung cancer. COMPARISON STUDY: PET CT July 21, 2016, chest CT July 23, 2016 and chest radiograph August 25, 2016. CT DOSE: 207.68 mGy.cm TECHNIQUE: Axial images of the chest were obtained without IV contrast. Images were reviewed in the axial, sagittal, and coronal planes. IV contrast was not administered for this examination. FINDINGS: There are postsurgical findings consistent with a right upper lobectomy. There are mild secretions within the trachea and right lower lobe bronchus. There is right paramediastinal opacity. There may be right middle lobe atelectasis. Right lower lobe volume loss favors segmental atelectasis within the right lower lobe. There is a trace left pleural effusion. There is a small to moderate-sized right pleural effusion which is largely loculated. A small amount of pleural gas is noted, most evident at the apex. There are groundglass opacities throughout the lungs with multifocal consolidation which favors pneumonia. There is no left-sided pneumothorax. No suspicious osseous lesions are present. There is a fracture of the posterior right first rib. This may be postsurgical. Upper abdomen is unremarkable. IMPRESSION: 1. Findings consistent with right upper lobectomy. Small to moderate-sized loculated right hydropneumothorax. 2. Multifocal groundglass opacities and consolidation within the lungs which favors pneumonia. Pulmonary edema could appear similar although is considered less likely. 3. Right paramediastinal opacity within the operative bed. This may be post surgical. Possible right middle lobe atelectasis and segmental right lower lobe atelectasis. Electronically signed by: Sage Valencia M.D. 08/26/2016 9:49 AM Dictated Date/Time: 08/26/2016 9:34 AM
--- NOTE | 2016-08-26 15:04 | PULMONARY PROGRESS NOTE ---
DATE: 08/26/2016 TIME: 1:45 p.m. SUBJECTIVE: The patient feels about the same as yesterday. Generally she is feeling well. She has a mild cough. She is not able to expectorate any sputum at all. She is not short of breath to any significant degree. Her breathing has improved with nebulizer treatments. She denies chills, fevers or sweats. Her appetite is fair. OBJECTIVE: GENERAL: The patient appeared comfortable at rest. ENT: Unchanged. HEART: Heart rate is 100 per minute. Blood pressure is 113/73. CHEST: Respiratory rate is 18 breaths per minute. The breath sounds at the right lung base are decreased. Left lung is clear. Right upper lung is clear. Oxygen saturation this morning was 96% on 3 liters. At 11:25 a.m., however, the saturation was reported as 85% on 2 liters. ABDOMEN: Soft and nontender. EXTREMITIES: Showed no cyanosis, clubbing or edema. DATA: CAT scan of the chest was done today. This shows small to moderate size loculated right hydropneumothorax. There is atelectasis in the right mid and lower lung field. However, the left lung now has multifocal ground-glass opacities and consolidation. The appearance is that of pneumonia. This is despite the fact she has had no fevers. There has been no worsening of her symptoms despite the x-ray findings. No laboratory studies were done today. IMPRESSION: 1. Lung carcinoma right upper lobe -- nonsmall cell -- status post right upper lobectomy. 2. Atelectasis. 3. Right pleural effusion, loculated. 4. Diffuse infiltrates, left lung -- questionable pneumonia versus other. 5. Chronic obstructive pulmonary disease. COMMENTS AND RECOMMENDATIONS: The patient has a markedly abnormal CAT scan of the chest, which is now abnormal on the left side. She has been on Zosyn for several days postoperatively, approximately 1 week. The bronchial washings are showing Klebsiella and Yana. The Klebsiella is listed as intermediate to ampicillin sulbactam. Will stop the Zosyn and add ceftriaxone. I will also give her a brief course of steroids. Case was discussed with Dr. Ordonez. He indicated that he has seen similar episodes of fairly diffuse lung infiltrates postoperatively in the contralateral lung from the one that had surgery. In light of her stable clinical course, will follow very carefully.
[2016-08-26] MEDS: CEFTRIAXONE SOD INJ 1 GM in DEXTROSE 5% ADD-VANTAGE 50ML 50 ML IV SCH (15:32)
[2016-08-26] MEDS ORDERED: NURSING VERBAL MED ORDER ONE ×2 (20:15→21:00)
[2016-08-26] MEDS: TRAZODONE HCL 50 MG TAB PO SCH (20:58)
[2016-08-26] MEDS: BOOST VANILLA PO SCH ×2 (21:03)
[2016-08-26] MEDS: OXYCODONE HCL IR 5 MG TAB (IMMEDIATE RELEASE) PO PRN (21:04)
[2016-08-26] MEDS: ESCITALOPRAM OXALATE 20 MG TAB PO SCH (21:44)
[2016-08-27] VITALS (14 sets, daily range): BP systolic 108–116; BP diastolic 69–72; PULSE 83–98; TEMP 36.5–36.8; O2SAT 71–98
[2016-08-27] MEDS: ACETAMINOPHEN IV 1,000 MG in EMPTY BAG 0 ML IV SCH (05:33)
[2016-08-27] MEDS ORDERED: FENTANYL CITRATE INJ 50 MCG/1 ML 2 ML VIAL IV ONE (07:41)
[2016-08-27] MEDS ORDERED: MIDAZOLAM HCL 5 MG/ML 1 ML VIAL IV ONE (07:41)
[2016-08-27] MEDS ORDERED: LIDOCAINE HCL 2% LOCAL 50ML VIAL INFIL ONE (07:41)
[2016-08-27] MEDS ORDERED: LIDOCAINE 4% W/AFRIN NASAL SOLN 4ML ONE (07:41)
[2016-08-27 07:45] LABS: HEMATOCRIT 23.4 % (37-47); MEAN CELL VOLUME 87.3 fL (80-100); MEAN CORPUSCULAR HEMOGLOBIN 29.5 pg (25-34); MEAN CORPUSCULAR HGB CONC 33.8 g/dl (32-36); MEAN PLATELET VOLUME 9.2 fL (7.4-10.4); PLATELET COUNT 487 K/uL (130-400); RED BLOOD COUNT 2.68 M/uL (4.2-5.4); WHITE BLOOD COUNT 15.08 K/uL (4.8-10.8)
[2016-08-27] MEDS: ALBUT/IPRATROP 3MG/0.5MG NEB 3 ML VIAL INH SCH ×4 (07:47→19:44)
--- NOTE | 2016-08-27 07:53 | DIAGNOSTIC IMAGING REPORT ---
SINGLE VIEW CHEST CLINICAL HISTORY: Hypoxia. FINDINGS: An AP, portable, upright chest radiograph is compared to study dated 08/25/2016 and correlated with chest CT dated 08/26/2016. The examination is degraded by portable technique and patient rotation. The patient is status post midline sternotomy. The cardiomediastinal silhouette is normal as visualized. There is mild atherosclerotic calcification of the thoracic aorta. Emphysema and chronic interstitial thickening are similar to previous. Again seen are postoperative changes from right upper lobe pulmonary resection. There is pleural fluid at the right lung base with right basilar consolidation. This is similar to yesterday. Loculated pleural fluid is again seen tracking to the right apex and there is trace right hydropneumothorax. Patchy consolidation is again seen throughout the left lung. A small pleural effusion is noted on the left. No left-sided pneumothorax is seen. The skeletal structures are osteopenic. The bony thorax is grossly intact. IMPRESSION: 1. Advanced emphysema with postoperative changes from right upper lobe resection. 2. Pleural fluid is again seen at the right lung base and there is trace right-sided hydropneumothorax. 3. Patchy airspace consolidation is again noted throughout the left lung with a small left pleural effusion. Electronically signed by: Deven Charles M.D. 08/27/2016 7:52 AM Dictated Date/Time: 08/27/2016 7:50 AM
[2016-08-27] MEDS: BOOST VANILLA PO SCH ×4 (08:10→21:17)
[2016-08-27] MEDS: ALPRAZOLAM 0.5 MG TAB PO SCH ×4 (08:16→21:17)
--- NOTE | 2016-08-27 08:16 | PULMONARY PROGRESS NOTE ---
DATE: 08/27/2016 TIME: 7:40 a.m. SUBJECTIVE: The patient developed increasing shortness of breath last evening. She noticed a definite change. She has required more oxygen. She still has just a mild cough. It is nonproductive. She has had no chest pains. OBJECTIVE: GENERAL: The patient looked fairly comfortable, but not as comfortable as yesterday. VITAL SIGNS: Temperature is 36.8. She has been afebrile. ENT: Unremarkable. NECK: Palpation of the neck reveals no lymph nodes. CHEST: Normal expansion. HEART: Rate is 100 per minute. The rhythm was regular. LUNGS: Auscultation of the lung gerber now reveals crackles throughout the left chest. This reflects a change from yesterday's exam. There are diminished breath sounds at the right lung base. Earlier this morning, she had a room air, pulse ox of 71%. On 3 liters, it increased to 90%. She was just 89% when I checked her. Blood pressure is 100/63. ABDOMEN: Soft and nontender. Bowel sounds were present. EXTREMITIES: Showed no cyanosis, clubbing or edema. LABORATORY DATA: CBC today is pending. Chemistry is pending as well. IMPRESSIONS: 1. Lung carcinoma, right upper lobe -- nonsmall cell -- status post right upper lobectomy. 2. Atelectasis, right lung. 3. Right pleural effusion, loculated. 4. Diffuse left lung infiltrates -- suspect pneumonia. 5. Chronic obstructive pulmonary disease. COMMENTS AND RECOMMENDATIONS: The patient is clinically changed from yesterday. She is more hypoxic. I am going to recheck a chest x-ray this morning. We need to keep her oxygen saturations above 90%. I believe we may need to consider transferring her to a monitored floor for closer attention. We will discuss this with Dr. Ordonez. Likewise, we may need to broaden her antibiotic coverage. She had been on Zosyn for 1 week. That was stopped yesterday and she was started on ceftriaxone based upon Klebsiella culture from bronchoscopy from the . Again, we will discuss that with Dr. Ordonez as well.
[2016-08-27] MEDS: METHYLPREDNISOLONE IV 40 MG in SYRINGE 0 ML IV SCH (08:17)
[2016-08-27] MEDS: DOCUSATE SODIUM 100 MG CAP PO SCH ×2 (08:17→20:47)
[2016-08-27] MEDS: BuPROPion SR 150 MG TABCR PO SCH (08:17)
[2016-08-27 08:18] LABS: CREATININE 0.37 mg/dl (0.60-1.20)
[2016-08-27] MEDS: GUAIFENESIN 600 MG TABCR PO SCH ×2 (08:18→21:10)
[2016-08-27] MEDS: GABAPENTIN 100 MG CAP PO SCH ×3 (08:18→21:11)
[2016-08-27] MEDS: POLYETHYLENE (MIRALAX) 17 GM PACK PO SCH (08:19)
[2016-08-27] MEDS: NICOTINE 21 MG/24 HR TDSY TD SCH (08:19)
[2016-08-27 08:25] LABS: ARTERIAL BLD GAS O2 SATURATION 94.9 % (90-95); ARTERIAL BLOOD GAS BASE EXCESS 5.2 mEq/L (-9-1.8); ARTERIAL BLOOD GAS HCO3 29 mmol/L (19-24); ARTERIAL BLOOD GAS PO2 92 mm/Hg (80-95); ARTERIAL BLOOD GAS pH 7.49 (7.35-7.45)
[2016-08-27 08:26] LABS: ALLEN TEST POS (POS); O2 ADMINISTRATION 4 L
--- NOTE | 2016-08-27 11:49 | SURGERY PROGRESS NOTE ---
DATE: 08/27/2016 DATE: 08/27/2016. Chitra Clement was seen today. She remains on 3 liters of O2. She is now postoperative day #10 from her midline sternotomy and right upper lobectomy. Dr. Alex Palomo and I evaluated the patient this morning and we are both remaining concerned. I am very concerned about her left lung, although I think from a posterior aspect she sounds better to me. She does have a few more rhonchi and Dr. Palomo was justifiably concerned as am I. She is afebrile. She is not making much sputum, but she feels like she is unable to cough it up. She has had no fevers. She has had no chills. Her heart rate has been stable. She is in the mid 90s. She appears to be somewhat anxious but comfortable. I reviewed her chest x-ray and quite frankly I think the right side looks okay. I would not do anything different. The CT scan yesterday remains concerning for us. The biggest problem with her is her left lung. This airspace consolidation is concerning. We have adjusted her antibiotics. She is on steroids. She has no wheezing. ASSESSMENT AND PLAN: 1. Postoperative day #10. Concerning changes in the left lung. We are going to manipulate her antibiotics for broader coverage, especially with an antimethicillin resistant staph aureus coverage. 2. Depression. The patient asked if I would increase her Lexapro. I have asked the psychiatrist to see her today. They are going to be adjusting her psychotropic meds. The patient is ambulating in the hallway. She is tolerating a diet. The steroids are going to be for a short course and we should stop them before the weekend is over.
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
--- NOTE | 2016-08-27 12:10 | Progress Note ---
Progress Note ID Consult Dictated #[id number] A/P: 1. PNA 2. Leukocytosis - likely multifactorial, infection, IV steroids, recent lobectomy, improving -Continue ctx, this will treat K. pneumo from most recent bronch, currently stable, ? secretions/mucus plug as cause of resp distress earlier -AFB smear negative x 2 -If clinical worsening can broaden to zosyn but did complete course of this and is now stable on exam -? need for drainage or right effusion, if drainage done, please send culture -Continue supportive care -Will follow, thank you
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
--- NOTE | 2016-08-27 13:14 | INFECT. DISEASE CONSULTATION ---
DATE OF CONSULTATION: 08/27/2016 REQUESTING PHYSICIAN: Dr. Ordonez. HISTORY OF PRESENT ILLNESS: This is a 56-year-old female who was admitted to the hospital on the after she had a right upper lobe lobectomy for recently diagnosed primary lung adenocarcinoma. She was initially admitted to the intensive care unit but was extubated shortly after her surgery. She was subsequently transferred to the medical floor. Review of her antibiotics reveals gentamicin, vancomycin and Ancef perioperatively on the . She was placed on a course of Zosyn from August 19 to August 26. She was then changed to Rocephin on the . She has also been on IV Solu-Medrol. She initially presented with a white blood cell count postoperatively of 23,000. This has improved to 15. She has had 2 bronchoscopies since her hospital stay. The first was on the . This culture revealed normal silvano. An AFB smear was done and is negative. Culture is pending. She did have a repeat bronchoscopy on the 24 of August. Culture from this grew Klebsiella pneumoniae which was intermittent to Unasyn only. Her AFB and fungal smears have been negative. Cultures are pending. Because her bronch culture had returned very sensitive to Klebsiella, she was transitioned to Rocephin. Apparently overnight, she had worsening respiratory distress and required increasing oxygenation. A CAT scan was obtained of the chest on the which showed evidence of right upper lobe lobectomy, right lower lobe atelectasis with a small loculated effusion. She is being followed by pulmonary as well as CT surgery. Infectious diseases was asked to see this patient in consultation for questionable healthcare associated pneumonia. She has had 2 episodes of low grade temperature since admission to the hospital on the . The first was on the where she had a T-max of 37.6. This was isolated. On the , she again had an isolated temperature of 37.6. She has otherwise been afebrile. On my examination today, she is out of bed to chair and eating lunch. She states she is being transferred to the second floor for increased monitoring. She does admit to minimal pleuritic chest pain with deep inspiration, but otherwise her pain is well controlled. She is currently on chronic nasal cannula oxygen but was not on oxygen prior to her admission. She does admit to some shortness of breath, especially with ambulation. She states she is able to ambulate to the bathroom but she is dyspneic upon doing so. She denies any cough or any hemoptysis. She denies any fevers or chills. She denies any nausea, vomiting, diarrhea or abdominal pain. She is eating but states her appetite is somewhat diminished. She denies any myalgias, arthralgias or rash. She has been tolerating antibiotics well. She currently is comfortable and not tachypneic. All remaining review of systems are reviewed and are negative except for as noted above. She does admit to having increasing shortness of breath over the past 3 years prior to her surgery. PAST MEDICAL HISTORY: Significant for depression, anxiety, and COPD. PAST SURGICAL HISTORY: Significant for right upper lobe lobectomy on the 17 of August during this hospital admission. SOCIAL HISTORY: Significant for daily tobacco use. She denies drug or alcohol use. ALLERGIES: She has no known drug allergies. CURRENT MEDICATIONS: Include Solu-Medrol, Rocephin, DuoNeb, Neurontin, MiraLax, Dulcolax, Fleet Enemas, nicotine patch, guaifenesin, oxycodone, Lovenox, Wellbutrin, Lexapro, trazodone, Colace, Xanax, Zofran and morphine. PHYSICAL EXAMINATION: VITAL SIGNS: She is afebrile in the last 24 hours, pulse 87, respiratory rate is 12, blood pressure is 116/70, oxygen saturation is 96% on 4 liters. This morning it was 90% on 3 liters; however, she did drop to 71% at 5:30 this morning while on room air. Otherwise, she was between 91 and 97% on 3 liters nasal cannula. GENERAL: She is awake, alert and oriented x3. She is in no acute distress. HEENT: Mucous membranes are dry. Extraocular muscles are intact. HEART: Regular. LUNGS: She does have clear lung sounds on the left, diminished lung sounds diffusely on the right. ABDOMEN: Soft and nontender. EXTREMITIES: There is no lower extremity edema. LABORATORY STUDIES: CBC today reveals a white blood cell count of 15.8, hemoglobin 7.9, hematocrit is 23.4, platelets are 487. Chemistry panel reveals a sodium of 136, potassium 3.6, chloride 99, bicarb 27, BUN 9, creatinine 0.4, glucose is 108. LFTs are within normal limits on the . Hep C antibody is negative. Again, bronch culture from the is normal silvano only. An AFB smear was negative at that time. Fungal smear did grow Yana albicans on . Bronchoscopy specimen is growing Klebsiella pneumoniae intermediate to Unasyn only. Fungal and AFB smears are negative. Chest x-ray was done this morning secondary to hypoxia which shows advanced emphysema and postoperative changes in the right upper lobe. Pleural fluid seen in the right base with a right-sided hydropneumothorax. Patchy consolidation was identified in the left lung. CT of the chest yesterday again showed postsurgical findings, secretions in the right lower lobe bronchus, right atelectasis in the middle lobe and right lower lobe volume loss suggesting atelectasis with effusion which is largely loculated. Bilateral lungs have multifocal consolidation, favoring pneumonia. ASSESSMENT AND PLAN: 1. Pneumonia. 2. Leukocytosis, likely multifactorial including infection, IV steroids, recent right upper lobe lobectomy. At this time, she can remain on Rocephin. It is unclear to me if her acute episode of hypoxia was secondary to secretions and/or mucus plugging as there was secretion noted on the CAT scan done yesterday afternoon; however, she is currently comfortable and her O2 sats have increased. Now she was transitioned to Rocephin based on her most recent sputum culture. If there is concern for additional pathogens, repeat sputums and/or bronchoscopy could be performed. There is a loculated effusion and CT surgery is following regarding any additional management of this. If she does have any drainage procedures done, repeat fluid cultures can be obtained at that time. She currently is afebrile and hemodynamically stable. If there is concern for worsening infection, she could be broadened back to Zosyn; however, Rocephin should be adequate to treat the Klebsiella that has grown from her bronchoscopy, most recently on the 24 of August. We will follow along with you. Thank you for this consultation.
[2016-08-27] MEDS: ENOXAPARIN 40 MG/0.4 ML SYR SQ SCH (13:42)
[2016-08-27] MEDS: CEFTRIAXONE SOD INJ 1 GM in DEXTROSE 5% ADD-VANTAGE 50ML 50 ML IV SCH (15:00)
[2016-08-27] MEDS ORDERED: TRAZODONE HCL 50 MG TAB PO PRN (21:00)
[2016-08-27] MEDS: ESCITALOPRAM OXALATE 20 MG TAB PO SCH (21:10)
[2016-08-27] MEDS: MIRTAZAPINE TAB 15 MG TAB PO SCH (21:12)
[2016-08-28] VITALS (10 sets, daily range): BP systolic 98–129; BP diastolic 66–83; PULSE 100–112; TEMP 36.6–37; O2SAT 90–97
--- NOTE | 2016-08-28 06:35 | Surgery Progress Note ---
Subjective Date of Service: Aug 28, 2016. Pt. resting in bed. Currently no SOB. Discussed with RN--no issues noted overnight. Pt. ambulated in hallway with some SOB noted with activity. Objective Vitals Date Time Temp Pulse Resp B/P Pulse Ox O2 Delivery O2 Flow Rate FiO2 08/28/16 04:12 91 Nasal Cannula 4.0 28 08/28/16 04:00 36.8 112 18 122/69 93 Nasal Cannula 4.0 08/28/16 00:05 91 Nasal Cannula 4.0 28 08/28/16 00:00 37.0 110 18 129/83 92 Nasal Cannula 4.0 08/27/16 20:00 91 Nasal Cannula 4.0 28 08/27/16 19:45 83 14 91 Nasal Cannula 4.0 08/27/16 19:42 36.8 96 20 108/69 94 Nasal Cannula 4.0 08/27/16 16:00 96 Nasal Cannula 4.0 08/27/16 15:41 36.5 97 18 113/72 98 Nasal Cannula 4.0 08/27/16 15:31 88 12 97 Nasal Cannula 4.0 08/27/16 14:39 36.7 97 18 111/72 94 Room Air 08/27/16 11:30 87 12 96 Nasal Cannula 4.0 08/27/16 08:41 Nasal Cannula 4.0 08/27/16 08:21 36.8 95 15 116/70 96 Nasal Cannula 4.0 08/27/16 08:00 96 Nasal Cannula 4.0 08/27/16 07:47 98 16 96 Nasal Cannula 4.0 Physical Exam General: + well developed, + well nourished, No distress CV: + RRR Pulmonary: + pertinent finding (decreased at bases), No accessory muscle use, No respiratory distress Extremities: No calf tenderness Neurologic: + alert & oriented x 3 Radiology CXR today shows right basilar atelectasis ad patchy infiltrative pattern on left Assessment & Plan 56 year old female s/p median sternotomy with RUL (08/18/16) -continue pain control measures -HYPOXIA/PNEUMONIA -pt. required FOB with BAL on (08/20/16) and due to atelectasis/mucous plugging: -cultures from this procedure are (-) for bacteria and AFB -bree noted on fungal culture -FOB again required on (08/23/16) -cultures (-) for fungus and AFB -bacterial culture (+) for Klebsiella -pt. initially treated with 7 day course of zosyn -ID consulted: -current abx.: -rocephin (day #2) -pulmonary consulted: -pt. given3 day course of IV steriods (08/27-08/29) -nebs provided -mucinex 600 mg q12 -pt. continues to require oxygen -discussed the importance of aggressive pulmonary toilet (IS, flutter valve, coughing, deep breathing) -continue mobilization DEPRESSION -psychiatry consulted and meds adjusted: -current regimen: -lexapro 10 mg daily -remeraon 15 mg hs -trazodone 50 mg hs prn CONSTIPATION -bowel regimen implemented and has been successful (fleets, miralax, dulcolax, colace) OTHER -lovenox for DVT prevention -d/c once oxygen requirements decreased
[2016-08-28] MEDS: IPRATROPIUM BROMIDE/ALBUTEROL respimat INH INH SCH ×4 (06:59→21:39)
--- NOTE | 2016-08-28 07:35 | DIAGNOSTIC IMAGING REPORT ---
CHEST ONE VIEW PORTABLE CLINICAL HISTORY: Hypoxia. COMPARISON STUDY: Chest CT August 26, 2016 and chest radiograph every 2016. FINDINGS: There are median sternotomy wires. Post surgical findings within the right hemithorax are again noted with stable right paramediastinal opacity. A moderate right pleural effusion is unchanged. A suspected gaseous component is again noted consistent with a hydropneumothorax. Left lung airspace opacity with interstitial thickening persists. IMPRESSION: 1. No significant change in the right hydropneumothorax with stable postsurgical findings consistent with right upper lobectomy. 2. Interstitial thickening and airspace opacity within the left lung which may reflect pulmonary edema or pneumonia. Electronically signed by: Sage Valencia M.D. 08/28/2016 7:34 AM Dictated Date/Time: 08/28/2016 7:23 AM
[2016-08-28] MEDS: METHYLPREDNISOLONE IV 40 MG in SYRINGE 0 ML IV SCH (08:17)
[2016-08-28] MEDS: DOCUSATE SODIUM 100 MG CAP PO SCH ×2 (08:17→20:46)
[2016-08-28] MEDS: GUAIFENESIN 600 MG TABCR PO SCH ×2 (08:17→20:47)
[2016-08-28] MEDS: GABAPENTIN 100 MG CAP PO SCH ×3 (08:18→20:48)
[2016-08-28] MEDS: ENOXAPARIN 40 MG/0.4 ML SYR SQ SCH (08:18)
[2016-08-28] MEDS: NICOTINE 21 MG/24 HR TDSY TD SCH (08:19)
[2016-08-28] MEDS: BOOST VANILLA PO SCH ×4 (08:24→20:46)
[2016-08-28] MEDS: ALPRAZOLAM 0.5 MG TAB PO SCH ×4 (08:24→20:56)
[2016-08-28] MEDS: POLYETHYLENE (MIRALAX) 17 GM PACK PO SCH (08:24)
[2016-08-28] MEDS: CEFTRIAXONE SOD INJ 1 GM in DEXTROSE 5% ADD-VANTAGE 50ML 50 ML IV SCH (15:47)
--- NOTE | 2016-08-28 17:42 | Pulmonology Progress Note ---
Pulmonary Progress Note Date of Service Aug 28, 2016. Attending Forest Araiza Subjective Patient feels stronger today but still notes CP and ALBA Objective Patient was able to complete full sentences not using accessory muscles showing no signs of increased respiratory effort during our conversation: Vital signs: Reviewed Respiratory: Decreased breath sounds at the bases right greater than left minimal wheezing on the right hemithorax Cardiac: S1 and S2 distant heart sounds unable to auscultate for murmurs rubs or gallops Abdomen: Soft nontender Thoracic: Well-healing surgical site ABG (08/27/15) 7.49/39/92/294Lnc BAL (08/20/16) WNL BAL (08/24/16) Klebsiella Pneumniae PFT (07/22/16) FEV1: 64% --PPO FEV1: 57% Assessment & Plan 56-year-old female status post right upper lobe lobectomy for Pancoast tumor: #1 non-small cell lung carcinoma: After speaking with thoracic surgery, pathology and it lung conference/cancer conference this patient is most likely a IIIa non-small cell lung carcinoma. After she is able to leave the hospital she will require follow-up with oncology and radiology. #2 pneumonia: Patient was diagnosed after bronchoscopy and 08/24/16 with Klebsiella pneumonia currently followed by infectious disease and treated with Rocephin. Patient is clinically responding mild increase in WBC count most likely secondary initiation of Solu-Medrol. #3 COPD: Patient's predicted postoperative FEV1 is 57% at this time I would continue the current steroids but will most likely wean down over the next 24- 48 hours. Also continue current nebulizer doses. #4 pain: Patient with notable chest pain at this time we'll initiate Toradol therapy #5 secretions: Patient with difficulties expectorating secretions. We'll initiate dornase at this time. Data Medications: Current Inpatient Medications Medications (Trade) Dose Ordered Sig/Olamide Route Start Time Stop Time Status Last Admin Dose Admin Alprazolam (Xanax Tab) 1 mg QID PO 08/17/16 17:00 09/16/16 16:59 08/28/16 17:26 1 MG Enoxaparin Sodium (Lovenox Inj) 40 mg DAILY SQ 08/18/16 09:00 09/17/16 08:59 08/28/16 08:18 40 MG Ondansetron HCl (Zofran Inj) 4 mg Q4H PRN IV 08/17/16 12:30 09/16/16 12:29 Docusate Sodium (coLACE CAP) 100 mg BID PO 08/17/16 21:00 09/16/16 20:59 08/28/16 08:17 100 MG Morphine Sulfate (MoRPHine SULFATE INJ) FOR PAIN, 1-2MG 1MG FOR P... Q1H PRN IV 08/17/16 12:30 08/31/16 12:29 08/22/16 17:16 2 MG Oxycodone HCl (Roxicodone Immediate Rel Tab) 5 mg Q4H PRN PO 08/18/16 14:15 09/01/16 14:14 08/26/16 21:04 5 MG Nicotine (Nicoderm Cq 21MG Patch) 1 patch QAM TD 08/19/16 13:18 09/18/16 13:17 08/28/16 08:19 1 PATCH Miscellaneous (Remove Nicoderm Patch) 1 ea HS N/A 08/19/16 21:00 09/18/16 20:59 08/27/16 20:49 1 EA Guaifenesin (Mucinex Contr Rel Tab) 600 mg Q12 PO 08/19/16 21:00 09/18/16 20:59 08/28/16 08:17 600 MG Polyethylene (Miralax Powder Packet) 17 gm DAILY PO 08/20/16 09:00 09/19/16 08:59 08/28/16 08:24 17 GM Bisacodyl (Dulcolax Supp) 10 mg DAILY PRN NH 08/20/16 08:15 09/19/16 08:14 Sodium Biphosphate/ Sodium Phosphate (Fleet Enema) 132 ml DAILY PRN NH 08/20/16 08:15 09/19/16 08:14 Gabapentin (Neurontin Cap) 100 mg TID PO 08/20/16 10:00 09/19/16 09:59 08/28/16 13:38 100 MG Enteral Nutritional Formula 1 can 1 can BID PO 08/26/16 21:00 09/25/16 20:59 08/28/16 08:24 1 CAN Ceftriaxone Sodium 1 gm/ Dextrose 50 ml @ 100 mls/hr Q24H IV 08/26/16 15:00 09/02/16 14:59 08/28/16 15:47 100 MLS/HR Methylprednisolone Sodium Succinate/ Syringe (Solu-Medrol IV/ Syringe) 0.64 ml @ 1.5 mls/min DAILY@0900 IV 08/27/16 09:00 08/29/16 07:00 08/28/16 08:17 1.5 MLS/MIN Escitalopram Oxalate (Lexapro Tab) 10 mg HS PO 08/27/16 21:00 08/29/16 20:59 08/27/16 21:10 10 MG Trazodone HCl (Desyrel Tab) 50 mg HS PRN PO 08/27/16 21:00 09/26/16 20:59 Mirtazapine (Remeron Tab) 15 mg HS PO 08/27/16 21:00 09/26/16 20:59 08/27/16 21:12 15 MG Albuterol/ Ipratropium (Combivent Respimat Inh) 1 puffs QID INH 08/28/16 13:00 09/27/16 12:59 08/28/16 13:37 1 PUFFS Albuterol/ Ipratropium (Duoneb) 3 ml Q4H PRN INH 08/28/16 08:00 09/23/16 12:14 I & O: 24-Hour Column 08/28/16 08:00 Intake Total 830 ml Balance 830 ml Vital Signs: Date Time Temp Pulse Resp B/P Pulse Ox O2 Delivery O2 Flow Rate FiO2 08/28/16 16:00 Nasal Cannula 4.0 08/28/16 14:56 36.8 109 20 108/72 94 Nasal Cannula 4.5 08/28/16 12:00 Nasal Cannula 4.0 08/28/16 11:11 36.6 100 16 107/74 94 Nasal Cannula 2.0 08/28/16 08:00 Nasal Cannula 4.0 08/28/16 07:47 36.8 111 18 118/69 90 4.0 08/28/16 06:59 107 16 90 Nasal Cannula 4.0 08/28/16 04:12 91 Nasal Cannula 4.0 28 08/28/16 04:00 36.8 112 18 122/69 93 Nasal Cannula 4.0 08/28/16 00:05 91 Nasal Cannula 4.0 28 08/28/16 00:00 37.0 110 18 129/83 92 Nasal Cannula 4.0 08/27/16 20:00 91 Nasal Cannula 4.0 28 08/27/16 19:45 83 14 91 Nasal Cannula 4.0 08/27/16 19:42 36.8 96 20 108/69 94 Nasal Cannula 4.0
[2016-08-28] MEDS: ESCITALOPRAM OXALATE 20 MG TAB PO SCH (20:47)
[2016-08-28] MEDS: MIRTAZAPINE TAB 15 MG TAB PO SCH (20:48)
[2016-08-28] MEDS: KETOROLAC TROMETHAMINE 15 MG/ML VIAL IV PRN (20:57)
[2016-08-29] VITALS (12 sets, daily range): BP systolic 94–168; BP diastolic 60–116; PULSE 87–107; TEMP 36.5–37.1; O2SAT 93–99
--- NOTE | 2016-08-29 07:22 | Surgery Progress Note ---
Subjective Date of Service: Aug 29, 2016. Pt. resting in bed--no fevers, shakes, chills. She ambulated several times each shift yesterday and did not have much SOB with this. No CP. Discussed with RN--pt. has been ambulating and has no acute issues. She continues to require oxygen. Objective Vitals Date Time Temp Pulse Resp B/P Pulse Ox O2 Delivery O2 Flow Rate FiO2 08/29/16 04:06 97 Nasal Cannula 4.0 08/29/16 04:00 36.6 88 20 118/72 97 Nasal Cannula 4.0 08/29/16 00:24 97 Nasal Cannula 4.0 08/29/16 00:00 36.5 87 20 100/63 98 Nasal Cannula 4.0 08/28/16 20:00 97 Nasal Cannula 4.0 08/28/16 19:18 36.8 100 19 98/66 97 Nasal Cannula 4.5 08/28/16 16:00 Nasal Cannula 4.0 08/28/16 14:56 36.8 109 20 108/72 94 Nasal Cannula 4.5 08/28/16 12:00 Nasal Cannula 4.0 08/28/16 11:11 36.6 100 16 107/74 94 Nasal Cannula 2.0 08/28/16 08:00 Nasal Cannula 4.0 08/28/16 07:47 36.8 111 18 118/69 90 4.0 Physical Exam General: + well developed, + well nourished CV: + RRR Pulmonary: + rhonchi (noted bilateally, but improved from prior exams), No accessory muscle use, No respiratory distress Extremities: No calf tenderness Neurologic: + alert & oriented x 3 Assessment & Plan 56 year old female s/p median sternotomy with RUL (08/18/16) -continue pain control measures -HYPOXIA/PNEUMONIA -pt. required FOB with BAL on (08/20/16) and due to atelectasis/mucous plugging: -cultures from this procedure are (-) for bacteria and AFB -bree noted on fungal culture -FOB again required on (08/23/16) -cultures (-) for fungus and AFB -bacterial culture (+) for Klebsiella -pt. initially treated with 7 day course of zosyn -ID consulted: -current abx.: -rocephin (day #3) -pulmonary consulted: -pt. given 3 day course of IV steriods (08/27-08/29) -nebs provided -mucinex 600 mg q12 -pt. continues to require oxygen: -RN to attempt to wean down today -discussed with pt. the importance of aggressive pulmonary toilet (IS, flutter valve, coughing, deep breathing) -continue mobilization ANEMIA -likely acute blood loss from surgery -pt. hemodynamically stable; will follow clinically -will repeat labs in am DEPRESSION -psychiatry consulted and meds adjusted: -current regimen: -lexapro 10 mg daily -remeraon 15 mg hs -trazodone 50 mg hs prn CONSTIPATION -bowel regimen implemented and has been successful (fleets, miralax, dulcolax, colace) OTHER -lovenox for DVT prevention -d/c once oxygen requirements decreased
[2016-08-29] MEDS: DORNASE ALFA (2500U) 2.5MG/2.5ML INH SCH ×2 (08:00→21:28)
[2016-08-29] MEDS: ALPRAZOLAM 0.5 MG TAB PO SCH ×4 (08:25→20:36)
[2016-08-29] MEDS: GABAPENTIN 100 MG CAP PO SCH ×3 (08:25→20:32)
[2016-08-29] MEDS: KETOROLAC TROMETHAMINE 15 MG/ML VIAL IV PRN (08:26)
[2016-08-29] MEDS: NICOTINE 21 MG/24 HR TDSY TD SCH (08:26)
[2016-08-29] MEDS: IPRATROPIUM BROMIDE/ALBUTEROL respimat INH INH SCH ×4 (08:34→20:30)
[2016-08-29] MEDS: BOOST VANILLA PO SCH ×4 (09:00→20:31)
[2016-08-29] MEDS: POLYETHYLENE (MIRALAX) 17 GM PACK PO SCH (09:00)
[2016-08-29] MEDS: DOCUSATE SODIUM 100 MG CAP PO SCH ×2 (09:00→20:31)
[2016-08-29] MEDS: GUAIFENESIN 600 MG TABCR PO SCH ×2 (10:29→20:32)
[2016-08-29] MEDS: ENOXAPARIN 40 MG/0.4 ML SYR SQ SCH (10:30)
[2016-08-29] MEDS: OXYCODONE HCL IR 5 MG TAB (IMMEDIATE RELEASE) PO PRN (10:30)
--- NOTE | 2016-08-29 13:42 | Pulmonology Progress Note ---
Pulmonary Progress Note Date of Service Aug 29, 2016. Attending Forest Araiza Subjective Patient currently having mild nasal bleeding and sore throat with subjective increased work of breathing. She was also noted decrease in her chest pain as well as increased ability to clear mucus secretions. Objective Patient was able to complete full sentences not using accessory muscles showing no signs of increased respiratory effort during our conversation: Vital signs: Reviewed Respiratory: Decreased breath sounds at the bases right greater than left minimal wheezing on the right hemithorax Cardiac: S1 and S2 distant heart sounds unable to auscultate for murmurs rubs or gallops Abdomen: Soft nontender Thoracic: Well-healing surgical site Ultrasonic evaluation of the thorax Patient has small to moderate size most likely loculated pleural effusion of the right hemithorax ABG (08/27/15) 7.49/39/92/294Lnc BAL (08/20/16) WNL BAL (08/24/16) Klebsiella Pneumniae PFT (07/22/16) FEV1: 64% --PPO FEV1: 57% Assessment & Plan 56-year-old female status post right upper lobe lobectomy for Pancoast tumor, with postoperative hypoxemia: #1 NSCLCa: After speaking with thoracic surgery, pathology and it lung conference/cancer conference this patient is most likely a IIIa non-small cell lung carcinoma. After she is able to leave the hospital she will require follow- up with oncology and radiology. #2 Pneumonia: Patient treated with Rocephin and notably afebrile at this time. Last WBC count 15K most likely from steroid initiation. CBC with differential to be obtained tomorrow morning. BAL: 08/24/16 with Klebsiella treated with Rocephin #3 COPD: Predicted postoperative FEV1 is 57% the patient continues to be hypoxic with minimal air movement by auscultation. Once again we'll continue current steroid dosing and decrease as soon as possible. #4 Pain: Better controlled on Toradol at this time. #5 Secretions: Patient notes increased ability to clear secretions we'll continue dornase/nebulized. #6 Sore Throat/Epistaxis: Most likely's from dry oral nasopharynx. We'll initiate humidified air and [place] nasal spray #7 Pleural Effusion: There is a mild to moderate size right-sided pleural effusion appears to have some fibrinous strands. At this time thoracentesis most likely will not benefit patient's hypoxia. Continue to monitor with repeat chest x-ray in the morning. #8 Hypoxia: Most likely combination from COPD exacerbation, postoperative pneumonia, hypoventilation from postsurgical pain and possible postoperative pneumonitis/inflammation. We have been able to decrease the patient's oxygen requirements over the last 24 hours and we'll continue to monitor. The day prior to patient's discharge performed two-step for oxygen requirement/ evaluation. We'll obtain BNP is thoracic ultrasound did note some mild B-lines. Data Medications: Current Inpatient Medications Medications (Trade) Dose Ordered Sig/Olamide Route Start Time Stop Time Status Last Admin Dose Admin Alprazolam (Xanax Tab) 1 mg QID PO 08/17/16 17:00 09/16/16 16:59 08/29/16 08:25 1 MG Enoxaparin Sodium (Lovenox Inj) 40 mg DAILY SQ 08/18/16 09:00 09/17/16 08:59 08/29/16 10:30 40 MG Ondansetron HCl (Zofran Inj) 4 mg Q4H PRN IV 08/17/16 12:30 09/16/16 12:29 Docusate Sodium (coLACE CAP) 100 mg BID PO 08/17/16 21:00 09/16/16 20:59 08/28/16 20:46 100 MG Morphine Sulfate (MoRPHine SULFATE INJ) FOR PAIN, 1-2MG 1MG FOR P... Q1H PRN IV 08/17/16 12:30 08/31/16 12:29 08/22/16 17:16 2 MG Oxycodone HCl (Roxicodone Immediate Rel Tab) 5 mg Q4H PRN PO 08/18/16 14:15 09/01/16 14:14 08/29/16 10:30 5 MG Nicotine (Nicoderm Cq 21MG Patch) 1 patch QAM TD 08/19/16 13:18 09/18/16 13:17 08/29/16 08:26 1 PATCH Miscellaneous (Remove Nicoderm Patch) 1 ea HS N/A 08/19/16 21:00 09/18/16 20:59 08/28/16 20:46 1 EA Guaifenesin (Mucinex Contr Rel Tab) 600 mg Q12 PO 08/19/16 21:00 3/11/17 20:59 08/29/16 10:29 600 MG Polyethylene (Miralax Powder Packet) 17 gm DAILY PO 08/20/16 09:00 09/19/16 08:59 08/28/16 08:24 17 GM Bisacodyl (Dulcolax Supp) [address] 08/20/16 08:15 09/19/16 08:14 Sodium Biphosphate/ Sodium Phosphate (Fleet Enema) [address] 08/20/16 08:15 09/19/16 08:14 Gabapentin (Neurontin Cap) 100 mg TID PO 08/20/16 10:00 09/19/16 09:59 08/29/16 08:25 100 MG Enteral Nutritional Formula 1 can 1 can BID PO 08/26/16 21:00 09/25/16 20:59 08/28/16 08:24 1 CAN Ceftriaxone Sodium/Dextrose (Rocephin Inj/ Dextrose Add-[place] 50ML) 50 ml @ 100 mls/hr Q24H IV 08/26/16 15:00 09/02/16 14:59 08/28/16 15:47 100 MLS/HR Escitalopram Oxalate (Lexapro Tab) 10 mg HS PO 08/27/16 21:00 08/29/16 20:59 08/28/16 20:47 10 MG Trazodone HCl (Desyrel Tab) 50 mg HS PRN PO 08/27/16 21:00 09/26/16 20:59 Mirtazapine (Remeron Tab) 15 mg HS PO 08/27/16 21:00 09/26/16 20:59 08/28/16 20:48 15 MG Albuterol/ Ipratropium (Combivent Respimat Inh) 1 puffs QID INH 08/28/16 13:00 09/27/16 12:59 08/29/16 08:34 1 PUFFS Albuterol/ Ipratropium (Duoneb) 3 ml Q4H PRN INH 08/28/16 08:00 09/23/16 12:14 Ketorolac Tromethamine (Toradol Inj) 15 mg Q6H PRN IV 08/28/16 17:30 08/30/16 18:00 08/29/16 08:26 15 MG Dornase Henrique (Pulmozyme Inhalation Soln 2.5ml Amp) 2.5 ml BIDR INH 08/28/16 20:00 08/30/16 19:59 I & O: 24-Hour Column 08/29/16 07:59 Intake Total 1592 ml Balance 1592 ml Vital Signs: Date Time Temp Pulse Resp B/P Pulse Ox O2 Delivery O2 Flow Rate FiO2 08/29/16 11:30 Nasal Cannula 1.0 08/29/16 11:11 36.6 98 18 100/67 98 2.0 08/29/16 08:17 93 20 114/72 94 Nasal Cannula 3.0 08/29/16 07:34 36.8 93 18 121/72 93 2.0 08/29/16 07:30 Nasal Cannula 4.0 08/29/16 04:06 97 Nasal Cannula 4.0 08/29/16 04:00 36.6 88 20 118/72 97 Nasal Cannula 4.0 08/29/16 00:24 97 Nasal Cannula 4.0 08/29/16 00:00 36.5 87 20 100/63 98 Nasal Cannula 4.0 08/28/16 20:00 97 Nasal Cannula 4.0 08/28/16 19:18 36.8 100 19 98/66 97 Nasal Cannula 4.5 08/28/16 16:00 Nasal Cannula 4.0 08/28/16 14:56 36.8 109 20 108/72 94 Nasal Cannula 4.5
[2016-08-29] MEDS ORDERED: NURSING VERBAL MED ORDER ONE (14:00)
[2016-08-29] MEDS: ACETAMINOPHEN 325 MG TAB PO PRN ×2 (14:49→20:39)
[2016-08-29] MEDS: CEFTRIAXONE SOD INJ 1 GM in DEXTROSE 5% ADD-VANTAGE 50ML 50 ML IV SCH (14:49)
[2016-08-29] MEDS: MIRTAZAPINE TAB 15 MG TAB PO SCH (20:31)
[2016-08-30] VITALS (12 sets, daily range): BP systolic 95–107; BP diastolic 62–69; PULSE 87–110; TEMP 36.5–37; O2SAT 92–99
[2016-08-30] MEDS: IPRATROPIUM BROMIDE/ALBUTEROL respimat INH INH SCH ×4 (06:58→19:20)
[2016-08-30] MEDS: DORNASE ALFA (2500U) 2.5MG/2.5ML INH SCH ×2 (06:59→19:20)
[2016-08-30] MEDS: ALBUT/IPRATROP 3MG/0.5MG NEB 3 ML VIAL INH PRN ×4 (06:59→19:20)
--- NOTE | 2016-08-30 07:43 | DIAGNOSTIC IMAGING REPORT ---
CHEST ONE VIEW PORTABLE CLINICAL HISTORY: hypoxia COMPARISON STUDY: 08/28/2016 FINDINGS: There are postsurgical changes of a midline sternotomy. Postsurgical changes are present within the right hemithorax. There is slight decrease in the right paramediastinal soft tissue. There is a persistent right pleural effusion. There is an improving left lung interstitial edema pattern.[ IMPRESSION: 1. Postsurgical changes in the right. Persistent right pleural effusion 2. Improving left lung interstitial edema pattern Electronically signed by: Bentley Veloz M.D. 08/30/2016 7:42 AM Dictated Date/Time: 08/30/2016 7:40 AM
[2016-08-30 07:49] LABS: BASO % 0.2 %; BASO ABS # 0.02 K/uL (0-0.2); EOS % 2.7 %; HEMATOCRIT 24.1 % (37-47); IG% 0.9 %; LYMPH % 9.6 %; LYMPH ABS # 1.23 K/uL (1.2-3.4); MEAN CELL VOLUME 86.7 fL (80-100); MEAN CORPUSCULAR HEMOGLOBIN 28.8 pg (25-34); MEAN CORPUSCULAR HGB CONC 33.2 g/dl (32-36); MEAN PLATELET VOLUME 8.7 fL (7.4-10.4); MONO % 4.8 %; NEUT % 81.8 %; PLATELET COUNT 672 K/uL (130-400); RED BLOOD COUNT 2.78 M/uL (4.2-5.4); WHITE BLOOD COUNT 12.82 K/uL (4.8-10.8)
[2016-08-30 08:12] LABS: ANISOCYTOSIS PRESENT; COMPLETE YES; POLYCHROMASIA 1+; TARGET CELLS 1+
[2016-08-30 08:38] LABS: CREATININE 0.37 mg/dl (0.60-1.20)
[2016-08-30] MEDS: POLYETHYLENE (MIRALAX) 17 GM PACK PO SCH (08:46)
[2016-08-30] MEDS: GUAIFENESIN 600 MG TABCR PO SCH ×2 (08:46→20:18)
[2016-08-30] MEDS: GABAPENTIN 100 MG CAP PO SCH ×3 (08:46→20:18)
[2016-08-30] MEDS: ENOXAPARIN 40 MG/0.4 ML SYR SQ SCH (08:46)
[2016-08-30] MEDS: NICOTINE 21 MG/24 HR TDSY TD SCH (08:46)
[2016-08-30] MEDS: DOCUSATE SODIUM 100 MG CAP PO SCH ×2 (08:46→20:17)
[2016-08-30] MEDS: BOOST VANILLA PO SCH ×4 (08:47→20:17)
[2016-08-30] MEDS: ALPRAZOLAM 0.5 MG TAB PO SCH ×4 (08:50→20:23)
--- NOTE | 2016-08-30 09:50 | Psychiatric Progress Notes ---
Psychiatric Progress Note Date of Service Aug 30, 2016. Notes ID: Patient reviewed with liaison nurse. Interim progress reviewed, med changes at initial consult included d/c Wellbutrin (taper), tapered Lexapro in favor of trial of Remeron. CC: "I feel better" HPI: she relates sleeping and eating better, feels less jittery following med changes, believes that she may be able to go home either today or tomorrow. ROS: less SOB, off o2 this am MSE: alert, cooperative, speech nl, thoughts organized, no SI/HI/ball Imp: same as initial consult--tolerating Remeron Plan: patient relates previous failing longer acting benzo, she declines Klonopin and will defer Xanax to outpatient provider, reviewed that higher dose and should decrease caffeine reviewed that Remeron may also need to be titrated on outpatient basis, agrees f /u HIEU cardenas (previous provider).
--- NOTE | 2016-08-30 12:10 | Pulmonology Progress Note ---
Pulmonary Progress Note Date of Service Aug 30, 2016. Attending Subjective Patient feels improved today. Has been ambulating the hallways without increased cough, dyspnea or wheeze. Denies pain. Appetite is in-tact. Using IS: 500. Objective 56-yo female with h/o COPD, anxiety and 124-pack year tobacco admitted to [facility] post RUL lobectomy for lung mass with tissue consistent with non-small cell lung CA - adenocarcinoma. She was admitted to [facility] post-operatively and extubated without complication but continued O2 needs. Post-operatively, she did develop episodes of hypoxia with concern for mucous plugging and volume loss on the right. Flexible fiberoptic bronchoscopy 08/20 procedure notable for lavage of purulent sputum (culture: light normal silvano, few bree). Bronchoscopy repeated 08/23- with cultures + klebsiella pneumonia. CT notable for RLL atelectasis and small ipsilateral loculated pleural effusion. Pulmonary toilet employed with mucolytic, flutter, and IS. Today: - O2 weaned: 90-99% RA -seated - Afebrile, HD stable - WBC: 12.82 (improved), Hgb/Hct/Plts: 03/03. Physical Exam: Constitutional: Well developed female sitting in chair at bedside postprandial. No acute distress. Head: + facial symmetry Eyes: EOMi, PERRLA, no conjunctival injection Mouth: Moist mucous membranes. No erythema, exudate, or post nasal gtt Neck: Trachea midline. No masses Chest: Well articulated angulated linear scare from mid-sternum to right chest. No purulence or erythema. Respiratory: Non-labored respirations. Diminished BS on the right. No wheeze, rales or rhonchi. Cardiovascular: RRR, no MRG. +2 radial pulses. <1s capillary refill. MSK/Extremities: Moving and developed symmetrically. No peripheral edema. Neurologic: A&O, data recall in-tact. Appropriate affect. Assessment & Plan 56-year-old female with COPD s/p RUL lobectomy with tissue + adenocarcinoma: 1. [facility]: follow-up with oncology and radiology. 2. Klebsiella Cultured bronchoscopy 08/24/16 sensitive to ceftriaxone: WBC improving day #5 ceftriaxone - per ID recommendations. 3. COPD and hypoxia: - Discharge on Spiriva 2.5 Respimat and Symbicort 160/4.5: 2 puffs BID with Q6- hour PRN albuterol-ipratropium - Discontinue dornase on discharge but continue flutter and incentive spirometry - 2-step prior to discharge (pending) - Follow-up in pulmonary office 3-4 weeks post discharge Patient and plan reviewed and agreed with. Data Medications: Current Inpatient Medications Medications (Trade) Dose Ordered Sig/Olamide Route Start Time Stop Time Status Last Admin Dose Admin Alprazolam (Xanax Tab) 1 mg QID PO 08/17/16 17:00 09/16/16 16:59 08/30/16 08:50 1 MG Enoxaparin Sodium (Lovenox Inj) 40 mg DAILY SQ 08/18/16 09:00 09/17/16 08:59 08/30/16 08:46 40 MG Ondansetron HCl (Zofran Inj) 4 mg Q4H PRN IV 08/17/16 12:30 09/16/16 12:29 Docusate Sodium (coLACE CAP) 100 mg BID PO 08/17/16 21:00 09/16/16 20:59 08/30/16 08:46 100 MG Morphine Sulfate (MoRPHine SULFATE INJ) FOR PAIN, 1-2MG 1MG FOR P... Q1H PRN IV 08/17/16 12:30 08/31/16 12:29 08/22/16 17:16 2 MG Oxycodone HCl (Roxicodone Immediate Rel Tab) 5 mg Q4H PRN PO 08/18/16 14:15 09/01/16 14:14 08/29/16 10:30 5 MG Nicotine (Nicoderm Cq 21MG Patch) 1 patch QAM TD 08/19/16 13:18 09/18/16 13:17 08/30/16 08:46 1 PATCH Miscellaneous (Remove Nicoderm Patch) 1 ea HS N/A 08/19/16 21:00 09/18/16 20:59 08/29/16 20:31 1 EA Guaifenesin (Mucinex Contr Rel Tab) 600 mg Q12 PO 08/19/16 21:00 09/18/16 20:59 08/30/16 08:46 600 MG Polyethylene (Miralax Powder Packet) 17 gm DAILY PO 08/20/16 09:00 09/19/16 08:59 08/30/16 08:46 17 GM Bisacodyl (Dulcolax Supp) [address] 08/20/16 08:15 09/19/16 08:14 Sodium Biphosphate/ Sodium Phosphate (Fleet Enema) [address] 08/20/16 08:15 09/19/16 08:14 Gabapentin (Neurontin Cap) 100 mg TID PO 08/20/16 10:00 09/19/16 09:59 08/30/16 08:46 100 MG Enteral Nutritional Formula 1 can 1 can BID PO 08/26/16 21:00 09/25/16 20:59 08/28/16 08:24 1 CAN Ceftriaxone Sodium/Dextrose (Rocephin Inj/ Dextrose Add-Wells 50ML) 50 ml @ 100 mls/hr Q24H IV 08/26/16 15:00 09/02/16 14:59 08/29/16 14:49 100 MLS/HR Trazodone HCl (Desyrel Tab) 50 mg HS PRN PO 08/27/16 21:00 09/26/16 20:59 Mirtazapine (Remeron Tab) 15 mg HS PO 08/27/16 21:00 09/26/16 20:59 08/29/16 20:31 15 MG Albuterol/ Ipratropium (Combivent Respimat Inh) 1 puffs QID INH 08/28/16 13:00 09/27/16 12:59 08/29/16 17:00 1 PUFFS Albuterol/ Ipratropium (Duoneb) 3 ml Q4H PRN INH 08/28/16 08:00 09/23/16 12:14 08/30/16 12:04 3 ML Ketorolac Tromethamine (Toradol Inj) 15 mg Q6H PRN IV 08/28/16 17:30 08/30/16 18:00 08/29/16 08:26 15 MG Dornase Henrique (Pulmozyme Inhalation Soln 2.5ml Amp) 2.5 ml BIDR INH 08/28/16 20:00 08/30/16 19:59 08/30/16 06:59 2.5 ML Acetaminophen (Tylenol Tab) 650 mg Q6H PRN PO 08/29/16 14:15 09/28/16 14:14 08/29/16 20:39 650 MG I & O: 24-Hour Column 08/30/16 07:59 Intake Total 960 ml Balance 960 ml Vital Signs: Date Time Temp Pulse Resp B/P Pulse Ox O2 Delivery O2 Flow Rate FiO2 08/30/16 11:09 87 20 92 Room Air 08/30/16 10:48 36.7 91 16 105/67 97 Room Air 08/30/16 08:05 Room Air 08/30/16 07:18 36.9 97 18 103/69 99 Nasal Cannula 2.0 Humidified Oxygen 08/30/16 07:00 98 20 98 Nasal Cannula 4.0 08/30/16 04:00 96 Nasal Cannula 1.5 28 08/30/16 03:53 36.5 88 18 107/68 98 Nasal Cannula 2.0 08/30/16 00:00 96 Nasal Cannula 1.5 28 08/29/16 23:54 36.7 90 18 94/60 99 Nasal Cannula 2.0 08/29/16 21:29 96 18 93 Nasal Cannula 4.0 08/29/16 20:00 96 Nasal Cannula 1.5 28 08/29/16 19:25 36.7 107 16 98/61 96 Nasal Cannula 1.5 08/29/16 15:25 Nasal Cannula 1.5 08/29/16 15:04 37.1 104 18 107/70 95 Nasal Cannula 2.0 Laboratory Results: Last 24 Hours Test 08/30/16 07:15 White Blood Count 12.82 K/uL Red Blood Count 2.78 M/uL Hemoglobin 8.0 g/dL Hematocrit 24.1 % Mean Corpuscular Volume 86.7 fL Mean Corpuscular Hemoglobin 28.8 pg Mean Corpuscular Hemoglobin Concent 33.2 g/dl Platelet Count 672 K/uL Mean Platelet Volume 8.7 fL Neutrophils (%) (Auto) 81.8 % Lymphocytes (%) (Auto) 9.6 % Monocytes (%) (Auto) 4.8 % Eosinophils (%) (Auto) 2.7 % Basophils (%) (Auto) 0.2 % Neutrophils # (Auto) 10.50 K/uL Lymphocytes # (Auto) 1.23 K/uL Monocytes # (Auto) 0.61 K/uL Eosinophils # (Auto) 0.34 K/uL Basophils # (Auto) 0.02 K/uL RDW Standard Deviation 49.0 fL RDW Coefficient of Variation 15.7 % Immature Granulocyte % (Auto) 0.9 % Immature Granulocyte # (Auto) 0.12 K/uL Polychromasia 1+ Anisocytosis PRESENT Target Cells 1+ Creatinine 0.37 mg/dl Est Creatinine Clear Calc Drug Dose 162.7 ml/min Estimated GFR () 140.4 Estimated GFR (Non- 121.2 Pro-B-Type Natriuretic Peptide 322 pg/ml
--- NOTE | 2016-08-30 14:56 | Progress Note ---
Subjective Date of Service: Aug 30, 2016. Subjective pt remains on ctx, tolerating well. afebrile. cxr done this am, left lung improved, still with post op changed and right effusion. wbc improved to 12 today. 08/24 bronch with klebsiella and yeast. no overnight events. Objective Vital Signs Date Time Temp Pulse Resp B/P Pulse Ox O2 Delivery O2 Flow Rate FiO2 08/30/16 12:03 Room Air 08/30/16 11:09 87 20 92 Room Air 08/30/16 10:48 36.7 91 16 105/67 97 Room Air 08/30/16 08:05 Room Air 08/30/16 07:18 36.9 97 18 103/69 99 Nasal Cannula 2.0 Humidified Oxygen 08/30/16 07:00 98 20 98 Nasal Cannula 4.0 08/30/16 04:00 96 Nasal Cannula 1.5 28 08/30/16 03:53 36.5 88 18 107/68 98 Nasal Cannula 2.0 08/30/16 00:00 96 Nasal Cannula 1.5 28 08/29/16 23:54 36.7 90 18 94/60 99 Nasal Cannula 2.0 08/29/16 21:29 96 18 93 Nasal Cannula 4.0 08/29/16 20:00 96 Nasal Cannula 1.5 28 08/29/16 19:25 36.7 107 16 98/61 96 Nasal Cannula 1.5 08/29/16 15:25 Nasal Cannula 1.5 08/29/16 15:04 37.1 104 18 107/70 95 Nasal Cannula 2.0 Laboratory Results Item Value Date Time Gram Stain - Final Complete 08/24/16 0000 Bronchial Washings Right Lobe Acid Fast Stain - Final Resulted 08/24/16 0000 Bronchial Washings Right Lobe Acid Fast Stain - Final Resulted 08/20/16 0000 Bronchial Washings Right Lobe Fungal Smear - Final Resulted 08/24/16 0000 Bronchial Washings Right Lobe Last 24 Hours Test 08/30/16 07:15 White Blood Count 12.82 K/uL Red Blood Count 2.78 M/uL Hemoglobin 8.0 g/dL Hematocrit 24.1 % Mean Corpuscular Volume 86.7 fL Mean Corpuscular Hemoglobin 28.8 pg Mean Corpuscular Hemoglobin Concent 33.2 g/dl Platelet Count 672 K/uL Mean Platelet Volume 8.7 fL Neutrophils (%) (Auto) 81.8 % Lymphocytes (%) (Auto) 9.6 % Monocytes (%) (Auto) 4.8 % Eosinophils (%) (Auto) 2.7 % Basophils (%) (Auto) 0.2 % Neutrophils # (Auto) 10.50 K/uL Lymphocytes # (Auto) 1.23 K/uL Monocytes # (Auto) 0.61 K/uL Eosinophils # (Auto) 0.34 K/uL Basophils # (Auto) 0.02 K/uL RDW Standard Deviation 49.0 fL RDW Coefficient of Variation 15.7 % Immature Granulocyte % (Auto) 0.9 % Immature Granulocyte # (Auto) 0.12 K/uL Polychromasia 1+ Anisocytosis PRESENT Target Cells 1+ Creatinine 0.37 mg/dl Est Creatinine Clear Calc Drug Dose 162.7 ml/min Estimated GFR () 140.4 Estimated GFR (Non- 121.2 Pro-B-Type Natriuretic Peptide 322 pg/ml Assessment and Plan (1) PNA (pneumonia) Assessment & Plan: continue klebsiella, cxr improving, would give 10 days total , day #5. Suspect yeast is nml oral silvano, would not treat, likely colonizaion. no new ID recs. (2) Leukocytosis Assessment & Plan: improving, likely multifactorial.
[2016-08-30] MEDS: CEFTRIAXONE SOD INJ 1 GM in DEXTROSE 5% ADD-VANTAGE 50ML 50 ML IV SCH (15:00)
--- NOTE | 2016-08-30 15:08 | SURGERY PROGRESS NOTE ---
DATE: 08/30/2016 SUBJECTIVE: Ms. Clement is seen today on 08/30/2016. She looks very good. She is on room air. She was ambulating in the hallway. She is working better with her incentive spirometer. Her lungs sound better. She still has some loculated fluid in the right, but I am going to address that. Her left lung looks better to me. ASSESSMENT AND PLAN: Postop day #13. The patient has struggled after this midline sternotomy and a lobectomy but she is getting better. I am tentatively planning on discharging her tomorrow and I will see her back in the office in a week after that.
[2016-08-30] MEDS: MIRTAZAPINE TAB 15 MG TAB PO SCH (20:18)
[2016-08-31] VITALS (8 sets, daily range): BP systolic 96–113; BP diastolic 63–73; PULSE 86–106; TEMP 36.7–37.1; O2SAT 90–99
[2016-08-31] MEDS: ACETAMINOPHEN 325 MG TAB PO PRN (04:49)
[2016-08-31] MEDS: ALBUT/IPRATROP 3MG/0.5MG NEB 3 ML VIAL INH PRN (07:00)
[2016-08-31] MEDS: IPRATROPIUM BROMIDE/ALBUTEROL respimat INH INH SCH ×2 (07:14→12:52)
[2016-08-31] MEDS: BOOST VANILLA PO SCH ×2 (07:41)
[2016-08-31] MEDS: NICOTINE 21 MG/24 HR TDSY TD SCH (07:42)
[2016-08-31] MEDS: GABAPENTIN 100 MG CAP PO SCH ×2 (07:42→12:53)
[2016-08-31] MEDS: ENOXAPARIN 40 MG/0.4 ML SYR SQ SCH (07:42)
[2016-08-31] MEDS: DOCUSATE SODIUM 100 MG CAP PO SCH (07:43)
[2016-08-31] MEDS: POLYETHYLENE (MIRALAX) 17 GM PACK PO SCH (07:43)
[2016-08-31] MEDS: GUAIFENESIN 600 MG TABCR PO SCH (07:44)
[2016-08-31] MEDS: ALPRAZOLAM 0.5 MG TAB PO SCH ×2 (07:48→12:52)
[2016-08-31] MEDS ORDERED: OXYC-57 PO (08:29)
[2016-08-31] MEDS ORDERED: CLC100 PO (08:32)
[2016-08-31] MEDS ORDERED: RMR15 PO (08:32)
[2016-08-31] MEDS ORDERED: CEFU1TAB36 PO (08:32)
[2016-08-31] MEDS ORDERED: NCDT21 TD (08:32)
[2016-08-31] MEDS ORDERED: NRN100 PO (08:32)
--- NOTE | 2016-08-31 08:36 | Discharge Instructions ---
Discharge Instructions Admission Reason for Admission: Pulmonary Nodule, Lung Cancer Discharge Discharge Diagnosis / Problem: Pulmonary Nodule, Lung Cancer Discharge Goals Goal(s): Learn about illness Activity Recommendations Activity Limitations: as noted below Lifting Limitations: none 1. Do not drive if taking percocet or ultram 2. Remove nicotine patch before applying a new one 3. Do not fly until cleared to do so by Dr. Ordonez 4. You may shower and clean incision with soap and water. No tub baths. . Instructions / Follow-Up Instructions / Follow-Up 1. Office appointment with Dr. Ordonez in 1 week. Office will call you with date and time of appointment. You will need a chest x-ray prior to appointment. 2. You will have a referral with Dr. Martinez of oncology. This will be made at your follow-up with Dr. Ordonez. Current Hospital Diet Patient's current hospital diet: Regular Diet Discharge Diet Recommended Diet: Regular Diet Procedures Procedures Performed: Median Sternotomy and Right Upper Lobectomy, Mediastinal Lymphadenectomy with Insertion of Stimulan Beads Pending Studies Studies pending at discharge: no Medical Emergencies . Who to Call and When: Medical Emergencies: If at any time you feel your situation is an emergency, please call 911 immediately. . Non-Emergent Contact Non-Emergency issues call your: Surgeon Call Non-Emergent contact if: you have a fever, your pain is not controlled, wound has increased drainage . "Provider Documentation" section prepared by Jun Lea. VTE Core Measure Inpt VTE Proph given/why not?: Enoxaparin (Lovenox)SQ
--- NOTE | 2016-08-31 09:19 | DISCHARGE SUMMARY ---
DISCHARGE DIAGNOSES: 1. Adenocarcinoma right upper lobe (T4 N1 M0 stage IIIA lung carcinoma) (IALFC. 2017 staging system). 2. History of cigarette smoking. 3. Postoperative hypoxia. 4. Questionable pneumonia. 5. History of cigarette smoking. 6. Chronic obstructive pulmonary disease. HOSPITAL COURSE: Chitra Clement is a 56-year-old female with a long history of cigarette smoking presented to my office with some pain in her right shoulder going down her right arm, was found to have a large mass in her right upper lobe. This was a questionable Pancoast tumor and we worked her up and I brought her in, felt that due to the size of the tumor (over 10 cm) that a midline sternotomy would be a better approach as I felt that we may well end up doing an en bloc chest wall resection of her second and perhaps her third rib. Fortunately, after opening her up we developed a plane and we were able to do a simple right upper lobectomy. She did well with the surgery; however, she struggled postoperatively. She was hypoxic. We did, have her up walking very aggressive. She had some fluid in her right chest, but the biggest problem were the infiltrates of her left lung. I was quite concerned about this. Dr. Palomo and Dr. Araiza and I discussed this case on multiple occasions. She was treated with a course of antibiotics, but I agree with Dr. Esther Calle this probably was not infectious in etiology. She struggled and I was concerned about her, however, the last several days of her hospitalization she really turned the corner. She was ambulating in the hallway. Her pulse oximetry is 95% on room air. We are going to cover her with 5 more days of Klebsiella coverage which we cultured; however, again, I do not believe this problem was infectious although we will cover her for such. Her incision was clean. Her chest tube was out. She did have some small amount of loculated effusion in the right; however, do not think this is clinically significant. She looked much better on the day of discharge 14 days after her admission. She will require of course postoperative therapy and we will refer her to the oncologist when she recovers a bit more.
[2016-08-31] MEDS: CEFTRIAXONE SOD INJ 1 GM in DEXTROSE 5% ADD-VANTAGE 50ML 50 ML IV SCH (14:35)
[2016-09-29] MEDS ORDERED: ESCI10TA17 PO (11:19)
[2016-09-29] MEDS ORDERED: GABA-112 PO (11:19)
[2016-09-29] MEDS ORDERED: NICO14DI9 TOP (11:19)
[2016-09-29] MEDS ORDERED: SENNTAB23 PO (11:19)
[2016-09-29] MEDS ORDERED: OXYC-57 PO (11:20)
[2016-09-29] MEDS ORDERED: VICODIN PO (11:21)
[2016-10-04] MEDS ORDERED: HYDR-5688 PO (10:57)
[2016-10-12] MEDS ORDERED: MULT-506 PO (09:38)
[2016-10-12] MEDS ORDERED: HYDR-5688 PO (09:38)
[2016-12-02] MEDS ORDERED: MRN5 PO (14:23)
== END 2016-08-31 16:11 | disposition home health service (06) | DRG 163 ==
LOC: ENRESERVDT → ENRESERVTM → C.ACU 05:37 → C.MSICU 07:10 → C.MSN 08-18 13:21 → C.2T 08-27 14:37
PROVIDERS: ADMIT Surgery; ATTEND Surgery
PROC: 0BTC0ZZ Resection of Right Upper Lung Lobe, Open Approach (ICD-10-PCS; principal; 2016-08-17 07:30)
PROC: 07B70ZX Excision of Thorax Lymphatic, Open Approach, Diagnostic (ICD-10-PCS; principal; 2016-08-17 07:30)
PROC: 07B80ZX Excision of Right Internal Mammary Lymphatic, Open Approach, Diagnostic (ICD-10-PCS; principal; 2016-08-17 07:30)
PROC: 0B9C8ZZ Drainage of Right Upper Lung Lobe, Via Natural or Artificial Opening Endoscopic (ICD-10-PCS; 2016-08-20)
PROC: 0B9L8ZZ Drainage of Left Lung, Via Natural or Artificial Opening Endoscopic (ICD-10-PCS; 2016-08-20)
PROC: 09CN8ZZ Extirpation of Matter from Nasopharynx, Via Natural or Artificial Opening Endoscopic (ICD-10-PCS; 2016-08-20)
PROC: 0B9D8ZZ Drainage of Right Middle Lung Lobe, Via Natural or Artificial Opening Endoscopic (ICD-10-PCS; 2016-08-20)
PROC: 0B9D8ZZ Drainage of Right Middle Lung Lobe, Via Natural or Artificial Opening Endoscopic (ICD-10-PCS; 2016-08-23)
PROC: 0B9F8ZZ Drainage of Right Lower Lung Lobe, Via Natural or Artificial Opening Endoscopic (ICD-10-PCS; 2016-08-23)
DX: C34.11 Malignant neoplasm of upper lobe, right bronchus or lung (principal); J15.0 Pneumonia due to Klebsiella pneumoniae; J98.11 Atelectasis; J90 Pleural effusion, not elsewhere classified; J94.8 Other specified pleural conditions; F32.9 Major depressive disorder, single episode, unspecified; J44.9 Chronic obstructive pulmonary disease, unspecified; F41.9 Anxiety disorder, unspecified; R09.02 Hypoxemia; K59.00 Constipation, unspecified; Z87.890 Personal history of sex reassignment

== ENCOUNTER → 2016-09-14 | Outpatient (CLI) | payer OTHER ==
[~2016-09-14] MED LIST changes: -BUPR-79 PO; +CLC100 PO; +ESCI10TA17 PO; -ESCI1TAB10 PO; +GABA-112 PO; +HYDR-5688 PO; +MRN5 PO; +MULT-506 PO; +NCDT21 TD; +NICO14DI9 TOP; +NRN100 PO; +OXYC-57 PO; +RMR15 PO; +SENNTAB23 PO; +VICODIN PO
--- NOTE | 2016-09-14 11:04 | DIAGNOSTIC IMAGING REPORT ---
CHEST 2 VIEWS ROUTINE HISTORY: R91.8 Lung massR91.1 Pulmonary [id number] Adenocarcinoma of ri COMPARISON: Chest 08/30/2016. FINDINGS: Post sternotomy changes. Right hilar/infrahilar suture material and volume loss within the right hemithorax persists. No pneumothorax. Right pleural effusion has slightly decreased in size. The right paramediastinal component of the fluid has decreased in size.. The left lung remains clear. The heart is normal in size. Left lung interstitial thickening has resolved. IMPRESSION: Decrease in size in the small to moderate right pleural effusion. Electronically signed by: Graham Samuel M.D. 09/14/2016 11:03 AM Dictated Date/Time: 09/14/2016 11:01 AM
== END | disposition home or self-care (01) ==
LOC: C.RAD 10:41
PROVIDERS: ATTEND Surgery
DX: C34.91 Malignant neoplasm of unspecified part of right bronchus or lung (principal); R91.1 Solitary pulmonary nodule; R91.8 Other nonspecific abnormal finding of lung field; J90 Pleural effusion, not elsewhere classified

== ENCOUNTER → 2016-10-04 | Outpatient (CLI) | payer OTHER ==
[~2016-10-04] MED LIST changes: -CLC100 PO; +GADAVIST IV PRN; -NCDT21 TD; -NRN100 PO; +OPTIRAY 320 IV PRN; -RMR15 PO
--- NOTE | 2016-10-04 15:41 | DIAGNOSTIC IMAGING REPORT ---
CT SCAN OF THE CHEST, ABDOMEN, AND PELVIS WITH IV CONTRAST CLINICAL HISTORY: Lung cancer. COMPARISON STUDY: Chest CT scans dated 06/25/2016 and 08/26/2016. PET/CT dated 07/21/2016. TECHNIQUE: Following the IV administration of 94 of Optiray 320, CT scan of the chest, abdomen, and pelvis was performed from the thoracic inlet to the proximal femora. Images are reviewed in the axial, sagittal, and coronal planes. IV contrast was administered without complication. Automated dose control exposure was utilized. The examination is degraded by streak artifact from the right arm which could not be elevated above the chest or abdomen. CT DOSE: 500.36 mGy.cm FINDINGS: CHEST: Thyroid: Imaged portions of the thyroid gland are normal in size and attenuation. Thoracic aorta: The thoracic aorta is normal in caliber and demonstrates standard 3-vessel arch anatomy. No dissection is seen. A right subclavian central venous infusion port is new from previous. Foci of subcutaneous gas in the right upper chest wall are likely related to recent instrumentation. Pulmonary vasculature: The pulmonary trunk is normal in caliber. There are no filling defects identified in the central pulmonary vessels to indicate pulmonary was. Note that this examination was not protocoled for evaluation of the pulmonary arteries. Heart: The patient is status post midline sternotomy. The heart is normal in size and configuration, and without pericardial effusion. Lungs and pleural spaces: Emphysema is noted. There are postoperative changes from right upper lobe resection, with volume loss and scarring in the right lung and compensatory hyperinflation of the left lung. There is a loculated and thick-walled pleural collection seen at the posterior right lung base which measures approximately 9 x 3.5 cm. There are 2 pulmonary nodules at the right lung base measuring up to 5 mm seen on axial images #177 and #183. These are likely unchanged from 06/25/2016 but are the location has changed due to postoperative architectural distortion. There is trace pleural fluid and atelectasis at the left lung base. A 3 mm left upper lobe nodule on image #101 is unchanged. The trachea and central airways are clear. Mediastinum: A mildly enlarged precarinal node on image #117 measures 1.3 cm in short axis. A prominent high right paratracheal node on image #61 measures 8 mm in short axis. Bozena: Clear. Lower neck: No supraclavicular lymphadenopathy is seen. Axillae: There is no axillary lymphadenopathy. Bony thorax: The skeletal structures are osteopenic. No lytic or blastic lesions are identified. Arthritic change is noted in the right shoulder. There is a healing right posterior first rib fracture, likely postsurgical in nature. ABDOMEN AND PELVIS: Liver: The contrast-enhanced liver is normal in size, contour, and attenuation. There is no intrahepatic or ductal dilatation. The hepatic veins and portal veins are patent. Gallbladder: Unremarkable. Spleen: Normal in size and attenuation. A subcapsular hypodensity in the spleen on image #112 measures up to 10 mm. This is unchanged from 06/25/2016 and is of indeterminant but doubtful significance. Pancreas: Unremarkable. Adrenal glands: Unremarkable. Kidneys: The contrast enhanced kidneys are normal in size and without hydronephrosis. The kidneys enhance symmetrically. There is a retroaortic left renal vein. Abdominal vasculature: The abdominal aorta is normal in course and caliber noting mild atherosclerotic calcification. Bowel: The small bowel and colon are normal in course and caliber. There is moderate colonic fecal retention. The appendix is not clearly visualized. Peritoneum: There is no intraperitoneal free air or abdominal ascites. Lymphadenopathy: There are enlarging right cardiophrenic lymph nodes seen on image #[address] The largest measures 1.2 x 2.2 cm.. Pelvic viscera: The bladder is normal as visualized. The uterus is surgically absent. No adnexal lesion is seen. Skeletal structures: The skeletal structures are osteopenic. No lytic or blastic lesions are seen. IMPRESSION: 1. Emphysema and postoperative changes from right upper lobe resection. 2. There are 2 pulmonary nodules at the right lung base measuring up to 5 mm and a 3 mm left upper lobe pulmonary nodule. These are indeterminant and unchanged from 06/25/2016. 3. There is a loculated pleural collection at the right lung base, likely on a postoperative basis. 4. There is no airspace consolidation typical for pneumonia. 5. There are enlarging right cardiophrenic lymph nodes. Additionally, there is a mildly enlarged precarinal lymph node. These are pathologically indeterminant and christofer metastatic disease is not excluded. 6. There is no evidence of metastatic disease in the abdomen or pelvis. 7. Moderate constipation. 8. Additional findings as above. Electronically signed by: Deven Charles M.D. 10/04/2016 3:40 PM Dictated Date/Time: 10/04/2016 3:25 PM
--- NOTE | 2016-10-04 16:39 | DIAGNOSTIC IMAGING REPORT ---
MRI OF THE BRAIN WITHOUT AND WITH IV CONTRAST CLINICAL HISTORY: LUNG CA mental status change COMPARISON STUDY: No previous studies for comparison. TECHNIQUE: Utilizing a 1.5 Janet magnet and dedicated coil, multiplanar, multiecho imaging of the brain was performed pre and postcontrast administration. IV administration of 6 mL of Gadavist contrast was uneventful. FINDINGS: Diffusion-weighted images show a small cortical focus of slightly increased signal posterior right para convexity. This shows a mild increase in signal on T1-weighted images with trace mass] vasogenic edema. Postcontrast images show a least a mild degree of peripheral postcontrast enhancement. Maximum dimension is 8 mm. No additional foci of increased signal are identified. Ventricular system is midline. Sella and parasellar regions are within normal limits. IMPRESSION: 1. 8 mm focus of peripheral enhancement posterior right prior convexity 2. A solitary metastatic focus must be considered given the patient's history. 3. Remainder of the study is negative. Electronically signed by: Rodolfo Reilly M.D. 10/04/2016 4:38 PM Dictated Date/Time: 10/04/2016 4:34 PM
== END | disposition home or self-care (01) ==
LOC: C.CTS 07:51
PROVIDERS: ATTEND Internal Medicine Hematology & Oncology
DX: C34.90 Malignant neoplasm of unspecified part of unspecified bronchus or lung (principal); Z90.2 Acquired absence of lung [part of]; J43.9 Emphysema, unspecified; R91.8 Other nonspecific abnormal finding of lung field; R59.0 Localized enlarged lymph nodes; R90.89 Other abnormal findings on diagnostic imaging of central nervous system

== ENCOUNTER → 2016-10-04 | Day surgery (SDC) | payer OTHER ==
[2016-09-29 11:21] VITALS: BMI 21.0
[~2016-10-04] VITALS: Ht 167.6 cm; Wt 60.0 kg
[~2016-10-04] MED LIST changes: +ATROPINE SULFATE 0.1 MG/ML 5ML SYR IV PRN; +CEFAZOLIN 2000 MG/60 ML D5W IV SCH; +CEFAZOLIN SOD 1 GM VIAL ONE; +EpHEDrine SULFATE INJ 50 MG/ML AMP IV PRN; +FENTANYL CITRATE INJ 50 MCG/1 ML 2 ML VIAL IV PRN; +FENTANYL CITRATE INJ 50 MCG/1 ML 2 ML VIAL ONE; -GADAVIST IV PRN; +HEPARIN SOD (PORCINE) 1000 UNIT/ML 10 ML VIAL ONE; +HYDROCODONE/ACETAMOPHEN 5/325MG TAB PO PRN; +LACTATED RINGER'S 1000ML 1,000 ML IV SCH; +LIDOCAINE HCL 1% 20 ML VIAL ONE; +LIDOCAINE HCL 2% 2 ML VIAL (20MG/ML) ONE; +MIDAZOLAM HCL 1 MG/ML 2ML VIAL ONE; +MoRPHine SULFATE 2 MG/ML CARP IV PRN; +ONDANSETRON INJ 2 MG/ML 2 ML VIAL IV PRN; -OPTIRAY 320 IV PRN; +PROMETHAZINE HCL INJ 6.25 MG in SODIUM CHLORIDE 0.9% 50ML 50 ML IV PRN; +PROPOFOL IV EMULSION 10 MG/ML 20 ML VIAL IV ONE; +THROMBIN FOR SOLN 20000 UNIT KIT ONE
[2016-10-04 08:37] VITALS: BP 98/59; PULSE 85; TEMP 37.4; O2SAT 98; Ht 167.6 cm; Wt 60.0 kg
[2016-10-04 08:52] LABS: HEMATOCRIT 31.6 % (37-47); MEAN CELL VOLUME 81.7 fL (80-100); MEAN CORPUSCULAR HEMOGLOBIN 27.4 pg (25-34); MEAN PLATELET VOLUME 9.3 fL (7.4-10.4); PLATELET COUNT 260 K/uL (130-400); RED BLOOD COUNT 3.87 M/uL (4.2-5.4); WHITE BLOOD COUNT 10.81 K/uL (4.8-10.8)
[2016-10-04 09:03] LABS: MEAN CORPUSCULAR HGB CONC 33.5 g/dl (32-36)
--- NOTE | 2016-10-04 09:45 | History and Physical ---
History & Physical Date Oct 04, 2016. History of Present Illness The patient is a 56 year old female with history of Rt lung cancer for access port Past Medical/Surgical History Medical Problems: (1) Leukocytosis (2) Lung cancer (3) PNA (pneumonia) Additional History Hepatic Disease: No Endocrine Disorder: No Kidney Disease: No Heart Disease: No Allergies Coded Allergies: No Known Allergies (Unverified , 10/04/16) Home Medications Scheduled Alprazolam (Xanax), 1 MG PO QID Escitalopram (Lexapro), 10 MG PO HS Gabapentin (Neurontin), 100 MG PO TID Nicotine (Nicotine), 1 PATCH TOP DAILY Sennosides-Docusate Sodium (Stool Softener), 1 TAB PO PRN Trazodone Hcl (Trazodone), 50 MG PO HS Scheduled PRN Oxycodone/Acetaminophen 5MG/325MG (Percocet 5MG/325MG), 1-2 TABLETS PO Q6H PRN for PRN Tramadol (Ultram), 50 MG PO Q8H PRN for Pain [Vicodin], 1 TAB PO Q12H PRN for RN Physical Examination Skin: warm/dry Eyes: sclerae normal Head: atraumatic Neck: supple Respiratory/Chest: no respiratory distress Cardiovascular: regular rate, rhythm Abdomen / GI: non tender Extremities: normal inspection Neurologic/Psych: alert Diagnosis Lung Cancer Plan of Treatment for access port placement
--- NOTE | 2016-10-04 10:52 | [facility] Post Operative Brief Note ---
Immediate Operative Summary Operative Date Oct 04, 2016. Pre-Operative Diagnosis Lung Cancer Post-Operative Diagnosis Same as preoperative Procedure(s) Performed Infusaport Insertion, Right Cephalic Surgeon Dr. Norbert Soria [employer] Surgeon(s) None per surgeon Estimated Blood Loss 5ml Findings placed via Rt cephalic vein Specimens None per surgeon Anesthesia local/ sedation Complication(s) None Disposition Recovery Room / PACU
--- NOTE | 2016-10-04 10:58 | Discharge Instructions ---
Discharge Instructions Date of Service Oct 04, 2016. Visit Reason for Visit: Lung Cancer Discharge Discharge Diagnosis / Problem: Rt lung cancer/ accesss port Discharge Goals Goal(s): Decrease discomfort, Improve function, Improve disease control Activity Recommendations Activity Limitations: as noted below Lifting Limitations: no more than 10 pounds Exercise/Sports Limitations: until after follow-up appointment May Resume Sexual Activity: when tolerated Shower/Bathe: tomorrow Driving or Machine Use: resume 1 day after discharge SPECIAL CARE INSTRUCTIONS: * Cover incisions and change daily for comfort/drainage * May use ibuprofen for pain as tolerated. * Expect some swelling and bruising. Call your doctor if: * Temperature above 101 degrees * Pain not relieved by pain medicine ordered * There is increased drainage or redness from any incision * You have any unanswered questions or concerns [phone]. FOLLOW UP VISIT: If not already scheduled, please call the office for a follow-up visit. for 2 weeks- [facility] OFFICE PHONE NUMBER: Dr. Soria Office Anesthesia . Post Anesthesia Instructions: If you have had General Anesthesia or IV Sedation: * Do not drive today. * Resume driving when surgeon permits. * Do not make important decisions or sign legal documents today. * Call surgeon for: 1. Temperature elevations greater than 101 degrees F. 2. Uncontrollable pain. 3. Excessive bleeding. 4. Persistent nausea and vomiting. 5. Medication intolerance (nausea, vomiting or rash). * For nausea and vomiting use only clear liquids such as: tea, soda, bouillon until nausea subsides, then gradually increase diet as tolerated. * If you have any concerns or questions, call your surgeon's office. If physician is unavailable and it is an emergency, call 911 or go to the nearest emergency room. . Diet Recommendations Recommended Home Diet: resume previous diet Procedures Procedures Performed: Infusaport Insertion, Right Cephalic Pending Studies Studies pending at discharge: no Medical Emergencies . Who to Call and When: Medical Emergencies: If at any time you feel your situation is an emergency, please call 911 immediately. . Non-Emergent Contact Non-Emergency issues call your: Primary Care Provider, Oncologist, Surgeon . . "Provider Documentation" section prepared by Norbert Soria.
--- NOTE | 2016-10-04 11:04 | Anesthesiology Progress Note ---
Anesthesia Post Op Note Date & Time Oct 04, 2016 at 11:04 Vital Signs Pain Intensity: 0 Vital Signs Past 12 Hours Date Time Temp Pulse Resp B/P Pulse Ox O2 Delivery O2 Flow Rate FiO2 10/04/16 08:37 37.4 85 18 98/59 98 Room Air Notes Mental Status: alert / awake / arousable, participated in evaluation Pt Amnestic to Procedure: Yes Nausea / Vomiting: adequately controlled Pain: adequately controlled Airway Patency, RR, SpO2: stable & adequate BP & HR: stable & adequate Hydration State: stable & adequate Anesthetic Complications: no major complications apparent
--- NOTE | 2016-10-04 11:13 | DIAGNOSTIC IMAGING REPORT ---
SINGLE VIEW CHEST CLINICAL HISTORY: Infusion port placement. FINDINGS: An AP, portable, upright chest radiograph is compared to study dated 09/14/2016 and correlated with chest CT dated 08/26/2016. The examination is degraded by portable technique and patient rotation. A right subclavian central venous infusion port is new from previous. The tip of the catheter projects over the SVC. The patient is status post midline sternotomy. The cardiomediastinal silhouette is normal as visualized. There is mild atherosclerotic calcification of the thoracic aorta. Emphysema and chronic interstitial thickening are similar to previous. Again seen are postoperative changes from right upper lobe pulmonary resection. There is pleural fluid at the right lung base with right basilar airspace opacities. This is similar to 09/14/2016. The left lung appears clear. No pneumothorax is seen. The skeletal structures are osteopenic. The bony thorax is grossly intact. IMPRESSION: 1. A right subclavian central venous infusion port is new from previous. No pneumothorax is identified post procedure. 2. Advanced emphysema with postoperative changes from right upper lobe resection. 3. Pleural fluid is again seen at the right lung base with right basilar airspace opacities. 4. The left lung appears clear. Electronically signed by: Deven Charels M.D. 10/04/2016 11:12 AM Dictated Date/Time: 10/04/2016 11:10 AM
[2016-10-04 11:55] VITALS: BP 112/65; PULSE 86; TEMP 37; O2SAT 96
--- NOTE | 2016-10-04 13:19 | OPERATIVE REPORT ---
DATE OF OPERATION: 10/04/2016 NAME OF OPERATION: Access port placement. PREOPERATIVE DIAGNOSIS: Lung cancer. POSTOPERATIVE DIAGNOSIS: Same. STAFF SURGEON: Dr. Norbert Soria. ANESTHESIA: 1% plain lidocaine with sedation. DESCRIPTION OF PROCEDURE: The patient was brought into the operating room and placed on the operating table in supine position. Her right chest was prepped and draped in usual fashion. Using 1% plain lidocaine, skin and subcutaneous tissue over the right deltopectoral groove were anesthetized. Incision made carrying dissection down identifying what was a relatively large cephalic vein. It was ligated distally using 2-0 silk suture. It was then opened and under fluoroscopy, a catheter was passed down into the proximal right atrium. As a note, the catheter was passed with the 45 cm end into the superior vena cava to approximately 30 cm, which was the appropriate length under fluoroscopy. The catheter was aspirated and flushed easily with heparinized solution and then a pocket was fashioned in the chest wall. The catheter was attached to the port. The port was placed into the pocket and secured to the chest wall using 3-0 Prolene suture, then aspirated and flushed with heparinized solution. The subcutaneous tissues reapproximated using 2-0 plain catgut suture. The site was irrigated with antibiotic solution. Skin reapproximated using 4-0 nylon suture. The patient was transferred to recovery room in stable condition. I attest to the content of the Intraoperative Record and any orders documented therein. Any exceptio ns are noted below.
== END | disposition home or self-care (01) ==
LOC: C.ACU 08:05
PROVIDERS: ATTEND Surgery
DX: C34.90 Malignant neoplasm of unspecified part of unspecified bronchus or lung (principal); J44.9 Chronic obstructive pulmonary disease, unspecified; Z68.21 Body mass index [BMI] 21.0-21.9, adult; F41.9 Anxiety disorder, unspecified; F32.9 Major depressive disorder, single episode, unspecified; Z90.710 Acquired absence of both cervix and uterus; Z87.891 Personal history of nicotine dependence; Z87.01 Personal history of pneumonia (recurrent); Z98.890 Other specified postprocedural states

== ENCOUNTER → 2016-10-18 | Outpatient (CLI) | payer OTHER ==
[~2016-10-18] MED LIST changes: -ATROPINE SULFATE 0.1 MG/ML 5ML SYR IV PRN; -CEFAZOLIN 2000 MG/60 ML D5W IV SCH; -CEFAZOLIN SOD 1 GM VIAL ONE; -EpHEDrine SULFATE INJ 50 MG/ML AMP IV PRN; -FENTANYL CITRATE INJ 50 MCG/1 ML 2 ML VIAL IV PRN; -FENTANYL CITRATE INJ 50 MCG/1 ML 2 ML VIAL ONE; -GABA-112 PO; +GADAVIST IV PRN; -HEPARIN SOD (PORCINE) 1000 UNIT/ML 10 ML VIAL ONE; -HYDROCODONE/ACETAMOPHEN 5/325MG TAB PO PRN; -LACTATED RINGER'S 1000ML 1,000 ML IV SCH; -LIDOCAINE HCL 1% 20 ML VIAL ONE; -LIDOCAINE HCL 2% 2 ML VIAL (20MG/ML) ONE; -MIDAZOLAM HCL 1 MG/ML 2ML VIAL ONE; -MoRPHine SULFATE 2 MG/ML CARP IV PRN; -NICO14DI9 TOP; +ONDA4TAB65 PO; -ONDANSETRON INJ 2 MG/ML 2 ML VIAL IV PRN; -OXYC-57 PO; +PROC1TAB5 PO; -PROMETHAZINE HCL INJ 6.25 MG in SODIUM CHLORIDE 0.9% 50ML 50 ML IV PRN; -PROPOFOL IV EMULSION 10 MG/ML 20 ML VIAL IV ONE; -THROMBIN FOR SOLN 20000 UNIT KIT ONE; -VICODIN PO
--- NOTE | 2016-10-18 18:52 | DIAGNOSTIC IMAGING REPORT ---
MRI OF THE BRAIN WITHOUT AND WITH IV CONTRAST CLINICAL HISTORY: C34.11, C79.31 carcinoma COMPARISON STUDY: 10/04/2016 TECHNIQUE: Utilizing a 1.5 Janet magnet and dedicated coil, multiplanar, multiecho imaging of the brain was performed pre and postcontrast administration. IV administration of 8.5 mL of Gadavist contrast was uneventful. FINDINGS: Small focus of peripheral enhancement with slight degree of surrounding vasogenic edema posterior gyrus right parietal convexity. Trace amount of peripheral postcontrast enhancement. Very subtle increase in vasogenic edema. No new or additional changes compared to the prior exam. Diffusion-weighted images show no evidence for an acute ischemic insult. Ventricular system remains midline. Sella and parasellar regions are unremarkable. Internal auditory canals are symmetric. IMPRESSION: 1. Solitary cortical focus of postcontrast enhancement posterior right parietal convexity. 2. No change in nodular size, although there is a very subtle increase in surrounding vasogenic edema. 3. This focus remains highly suspect for a solitary metastatic deposit. 4. Study otherwise remains unremarkable and stable Electronically signed by: Rodolfo Reilly M.D. 10/18/2016 6:50 PM Dictated Date/Time: 10/18/2016 6:48 PM
== END | disposition home or self-care (01) ==
LOC: C.MRI 17:20
PROVIDERS: ATTEND Radiology Radiation Oncology
DX: C34.90 Malignant neoplasm of unspecified part of unspecified bronchus or lung (principal)

== ENCOUNTER → 2016-10-20 | Outpatient (CLI) | payer OTHER ==
[~2016-10-20] MED LIST changes: -GADAVIST IV PRN
--- NOTE | 2016-10-20 13:57 | Discharge Instructions ---
Discharge Instructions Procedure Procedure Date: Oct 20, 2016. Reason for visit: Enlarged Lymph Node In ChestDr Valencia To Do. Discharge Discharge Date: Oct 20, 2016. Discharge Diagnosis: s/p right cardiophrenic angle node FNA Instructions Activity Recommendations: No limitations Return to School/Work: no limitations Recommended Home Diet: No Limitations Provider Instructions: ACTIVITY RECOMMENDATIONS: * Rest today. * Resume regular activity in one day. MEDICATIONS: * May take Tylenol or Ibuprofen as needed for pain. DIET: * Resume previous diet. SPECIAL CARE INSTRUCTIONS: Call your doctor if: * Temperature above 101 degrees F. * Pain not relieved by pain medicine ordered. * Increased drainage or redness from incision. * Notify your doctor with any questions or concerns. Call your doctor or go to the nearest Emergency Department if you experience: * Increased chest pain or shortness of breath. FOLLOW UP VISIT: Follow-up with Referring Physician as scheduled. Allergies Coded Allergies: No Known Allergies (Unverified , 10/04/16) Cheryl Milian Recommendations: Call your doctor if: * Temperature above 101 degrees * Pain not relieved by pain medicine ordered * There is increased drainage or redness from any incision * You have any unanswered questions or concerns. Your Doctors Instructions noted above were prepared by provider Sage Valencia. Patient Signature Section: Patient Instructions Signature Page Chitra Clement Patient (or Guardian) Signature/Date: I have read and understand the instructions given to me by my caregivers. Caregiver/RN/Doctor Signature/Date: The above-named patient and/or guardian has received patient instructions on this date. + Original Patient Signature Page (only) stays with chart. Please make copy for patient.
--- NOTE | 2016-10-20 14:43 | DIAGNOSTIC IMAGING REPORT ---
ULTRASOUND GUIDED FINE NEEDLE ASPIRATION OF RIGHT CARDIOPHRENIC ANGLE LYMPH NODES CLINICAL HISTORY: Enlarged lymph node in chest. Lung cancer. COMPARISON STUDY: Chest CT October 04, 2016. PROCEDURE: Sonography of the right lower anterior hemithorax demonstrated an enlarged right cardiophrenic angle node, as shown on CT of October 04, 2016. This node measured 2.2 x 1.2 cm. 3 smaller adjacent lymph nodes were also identified. The procedure, risks and benefits were discussed with the patient. The patient agreed to the procedure and informed written consent was obtained. The procedure was performed by Dr. Valencia following a timeout. Skin was prepped and draped in sterile fashion and local anesthesia was achieved with 1% lidocaine. Under direct ultrasound guidance, 3 25-gauge fine needle aspirations of the largest node were performed. Atypical cells were identified. 1 25-gauge fine needle aspiration of an adjacent 8 mm lymph node was also performed. The patient tolerated the procedure well and no immediate complications were evident. IMPRESSION: Ultrasound guided fine needle aspiration of right cardiophrenic angle lymph nodes. Electronically signed by: Sage Valencia M.D. 10/20/2016 2:41 PM Dictated Date/Time: 10/20/2016 2:38 PM
== END | disposition home or self-care (01) ==
LOC: C.ULTR 12:42
PROVIDERS: ATTEND Surgery
DX: C34.91 Malignant neoplasm of unspecified part of right bronchus or lung (principal); R89.6 Abnormal cytological findings in specimens from other organs, systems and tissues

== ENCOUNTER → 2016-12-02 | Outpatient (CLI) | payer OTHER ==
[2016-12-02 14:07] VITALS: BP 118/79; PULSE 100; TEMP 36.9; O2SAT 98
--- NOTE | 2016-12-02 16:32 | Radiation Oncology Follow-Up ---
Radiation Oncology Follow-Up Date of Visit December 02, 2016. (Anila Torres PA-C) Reason For Visit One-month follow-up (Anila Torres PA-C) Radiation Completion Date Stereotactic radiation to brain on 11/03/16 (Anila Torres PA-C) Diagnosis (1) Lung cancer Status: Chronic Onset Date: 08/05/2016 Location: brain metastasis Histology Subtype: adenocarcinoma Stage: IV Permanent Comment: Chronic cough CT finding of a right upper lobe mass 06/25/2016 Status post bronchoscopy and biopsy 08/05/2016 revealing adenocarcinoma Status post right upper lobectomy and mediastinal lymphadenectomy 09/14/2016 Stage pT3 [id number] Staging evaluation revealing a solitary brain metastasis Status post stereotactic radiation therapy to the brain 11/03/2016 received 1800 cGy Last Edited By: Anila Torres on November 15, 2016 13:02 (Anila Torres PA-C) History of Present Illness She underwent a PET/CT scan on 07/21/2016 which revealed: "IMPRESSION: 1. An 8.5 cm right suprahilar pulmonary mass lesion is again seen. This is markedly FDG avid and typical in appearance for a primary lung cancer. 2. There are 3 mm pulmonary nodules at the right apex and in the right lower lobe that are too small for PET characterization and indeterminant. These were also seen on the examination. 3. No left-sided pulmonary lesions are identified. 4. No FDG avid hilar or mediastinal lymph nodes are clearly identified. A mildly enlarged precarinal node is again seen and indeterminant, as this node did not show FDG uptake. 5. There is periosteal reaction seen involving the right posterior eighth rib with low level FDG activity. This is indeterminant and could represent a healing fracture. A metastatic focus would be impossible to exclude. Attention at follow-up is recommended. 6. There is no evidence of extrathoracic metastatic disease. 7. Emphysema." She had a CT thorax completed on 07/23/2016 which revealed: "IMPRESSION: 1. 7.8 cm right upper lobe pulmonary mass extending to the right apical pleura and abutting the right innominate vein and superior vena cava. The mass is irregularly marginated and highly suspicious for a bronchogenic carcinoma 2. Scattered subcentimeter pulmonary nodules 3. Mildly enlarged precarinal lymph node." She underwent a endobronchial ultrasound and bronchoscopy on 08/05/2016 which confirmed the presence of adenocarcinoma. Multiple mucous and lymph nodes were biopsied and were negative however a R10 lymph node was biopsied which was nondiagnostic. The patient was then treated with a surgical resection on [address] Alex Ordonez. She underwent a right upper lobectomy and lymph node sampling which revealed a 10.5 cm primary lung cancer that was non-small cell lung carcinoma consistent with adenocarcinoma. The margins were negative however there was visceral pleural invasion and one peribronchial lymph node was positive so the patient was stages pathologic [id number]. The patient was referred to Dr. Kodi Martinez for medical oncology who was recommending adjuvant chemotherapy. Dr. Martinez completed a staging workup with an MRI of the brain on 10/04/2016 which revealed: "IMPRESSION: 1. 8 mm focus of peripheral enhancement posterior right prior convexity 2. A solitary metastatic focus must be considered given the patient's history. 3. Remainder of the study is negative." Dr. Martinez did complete staging workup with a CT of the chest, abdomen, pelvis on 09/14/2016 which revealed: "IMPRESSION: 1. Emphysema and postoperative changes from right upper lobe resection. 2. There are 2 pulmonary nodules at the right lung base measuring up to 5 mm and a 3 mm left upper lobe pulmonary nodule. These are indeterminant and unchanged from . 3. There is a loculated pleural collection at the right lung base, likely on a postoperative basis. 4. There is no airspace consolidation typical for pneumonia. 5. There are enlarging right cardiophrenic lymph nodes. Additionally, there is a mildly enlarged precarinal lymph node. These are pathologically indeterminant and christofer metastatic disease is not excluded. 6. There is no evidence of metastatic disease in the abdomen or pelvis. 7. Moderate constipation. 8. Additional findings as above." We have been asked to evaluate the patient for consideration of radiation therapy to the brain. Currently, the patient's only symptom is she is been having some nausea otherwise she is asymptomatic. She denies any other significant focal neurologic deficits. She was evaluated and found to be a candidate for brain SRS. This was completed 11/03/2016. She received 1800 cGy (Anila Torres PA-C) Interim History Over this past month she has been undergoing chemotherapy. The treatments are being given every 3 weeks. The most recent dose of medication was 11/26/2016. She notes cyclic side effects. These usually occur approximately 3 days following treatment. She especially notes headaches and nausea. Denies vomiting. She does have medications available that feel that these helped minimally. She tries tramadol 3 times a day for pain. For the nausea she has tried Zofran, Compazine, and Marinol. (Anila Torres PA-C) Allergies Coded Allergies: No Known Allergies (Unverified , 10/04/16) Home Medications Scheduled Alprazolam (Xanax), 1 MG PO QID Dronabinol (Marinol), 1 CAP PO TID Escitalopram (Lexapro), 20 MG PO HS Multivitamin (Multivitamin), 1 TAB PO DAILY Sennosides-Docusate Sodium (Stool Softener), 1 TAB PO DAILY Trazodone Hcl (Trazodone), 50 MG PO HS Scheduled PRN Hydrocodone/Acetaminophen 5MG/325MG ([place] 5MG/325MG), 1-2 TAB PO Q12 PRN for Pain Tramadol (Ultram), 50-100 MG PO BID PRN for Pain Review of Systems Gastrointestinal: Symptoms: Nausea, Constipation GI Comments: Nausea associated w/chemo - has antiemetics;Constipation - manageable Oral: Symptoms: No Problems Other Oral Symptoms: Uses magic mouthwash for mouth sores related to chemo Respiratory: Symptoms: SOB With Exertion, Productive Cough Respiratory Comments: Feels as though she may be getting a cold or something ; Sputum Character: For yellow sputum; Other Respiratory: Since Sat-coughing, SOB, nose running, and chest hurts; Urinary: Symptoms: WNL Skin: Symptoms: No Problems (Anila Torres PA-C) Physical Exam Vital Signs Date Time Temp Pulse Resp B/P Pulse Ox O2 Delivery O2 Flow Rate FiO2 12/02/16 14:07 36.9 100 20 118/79 98 Fatigue: None General Appearance: no apparent distress Eyes: normal inspection, PERRL, EOMI ENT: normal ENT inspection, hearing grossly normal Respiratory/Chest: lungs clear, no respiratory distress, no accessory muscle use Cardiovascular: regular rate, rhythm, no gallop, no murmur Abdomen: non tender, soft Extremities: no pedal edema Neurologic/Psychiatric: no motor/sensory deficits, alert, normal mood/affect Skin: warm/dry (Anila Torres PA-C) Laboratory Studies Test 10/04/16 13:20 10/20/16 00:00 11/05/16 10:20 11/26/16 10:06 Neutrophils % (Manual) 86.8 % Lymphocytes % (Manual) 7.0 % Monocytes % (Manual) 4.4 % Eosinophils % (Manual) 0.9 % Basophils % (Manual) 0.9 % Neutrophils # (Manual) 5.91 K/uL (1.4-6.5) Total Absolute Neutrophils 5.91 K/uL (1.4-6.5) Lymphocytes # (Manual) 0.48 K/uL (1.2-3.4) Total Absolute Lymphocytes 0.48 K/uL (1.2-3.4) Monocytes # (Manual) 0.30 K/uL (0.11-0.59) Eosinophils # (Manual) 0.06 K/uL (0-0.5) Basophils # (Manual) 0.06 K/uL (0-0.2) Red Blood Cell Morphology Unremarkable Flow Cytometry Comment See Comment White Blood Count 15.32 K/uL (4.8-10.8) 9.19 K/uL (4.8-10.8) Red Blood Count 4.62 M/uL (4.2-5.4) 4.40 M/uL (4.2-5.4) Hemoglobin 12.4 g/dL (12.0-16.0) 12.1 g/dL (12.0-16.0) Hematocrit 38.6 % (37-47) 36.6 % (37-47) Mean Corpuscular Volume 83.5 fL (80-100) 83.2 fL (80-100) Mean Corpuscular Hemoglobin 26.8 pg (25-34) 27.5 pg (25-34) Mean Corpuscular Hemoglobin Concent 32.1 g/dl (32-36) 33.1 g/dl (32-36) Platelet Count 358 K/uL (130-400) 264 K/uL (130-400) Mean Platelet Volume 9.5 fL (7.4-10.4) 8.9 fL (7.4-10.4) Neutrophils (%) (Auto) 87.5 % 93.5 % Lymphocytes (%) (Auto) 8.4 % 4.8 % Monocytes (%) (Auto) 3.3 % 1.2 % Eosinophils (%) (Auto) 0.1 % 0.1 % Basophils (%) (Auto) 0.1 % 0.1 % Neutrophils # (Auto) 13.42 K/uL (1.4-6.5) 8.59 K/uL (1.4-6.5) Lymphocytes # (Auto) 1.28 K/uL (1.2-3.4) 0.44 K/uL (1.2-3.4) Monocytes # (Auto) 0.50 K/uL (0.11-0.59) 0.11 K/uL (0.11-0.59) Eosinophils # (Auto) 0.01 K/uL (0-0.5) 0.01 K/uL (0-0.5) Basophils # (Auto) 0.02 K/uL (0-0.2) 0.01 K/uL (0-0.2) RDW Standard Deviation 45.8 fL (36.4-46.3) 49.8 fL (36.4-46.3) RDW Coefficient of Variation 15.0 % (11.5-14.5) 16.3 % (11.5-14.5) Immature Granulocyte % (Auto) 0.6 % 0.3 % Immature Granulocyte # (Auto) 0.09 K/uL (0.00-0.02) 0.03 K/uL (0.00-0.02) Sodium Level 140 mmol/L (136-145) 140 mmol/L (136-145) Potassium Level 4.0 mmol/L (3.5-5.1) 4.3 mmol/L (3.5-5.1) Chloride Level 106 mmol/L (98-107) 107 mmol/L (98-107) Carbon Dioxide Level 30 mmol/L (21-32) 25 mmol/L (21-32) Anion Gap 4.0 mmol/L (3-11) 8.0 mmol/L (3-11) Blood Urea Nitrogen 13 mg/dl (7-18) 14 mg/dl (7-18) Creatinine 0.57 mg/dl (0.60-1.20) 0.53 mg/dl (0.60-1.20) Estimated GFR () 121.8 124.8 Estimated GFR (Non- 105.1 107.6 BUN/Creatinine Ratio 23.6 (10-20) 27.1 (10-20) Random Glucose 92 mg/dl (70-99) 102 mg/dl (70-99) Calcium Level 8.7 mg/dl (8.5-10.1) 8.6 mg/dl (8.5-10.1) Total Bilirubin 0.2 mg/dl (0.2-1) 0.3 mg/dl (0.2-1) Aspartate Amino Transferase (AST) 10 U/L (15-37) 19 U/L (15-37) Alanine Aminotransferase (ALT) 21 U/L (12-78) 41 U/L (12-78) Alkaline Phosphatase 75 U/L (45-117) 86 U/L (45-117) Lactate Dehydrogenase 143 U/L (84-246) 239 U/L (84-246) Total Protein 6.6 gm/dl (6.4-8.2) 6.9 gm/dl (6.4-8.2) Albumin 3.4 gm/dl (3.4-5.0) 3.4 gm/dl (3.4-5.0) Globulin 3.2 gm/dl (2.5-4.0) 3.5 gm/dl (2.5-4.0) Albumin/Globulin Ratio 1.1 (0.9-2) 1.0 (0.9-2) Toxic Granulation 1+ Magnesium Level 1.9 mg/dl (1.8-2.4) (Anila Torres PA-C) Assessment & Plan Plan: Patient is also seen and examined by Dr. Hernandez. Her symptoms are cyclic and related to her chemotherapy currently. She continues on the above prescribed regimen of medication. She should take the antiemetic on a regular basis. If she is not improving she should contact Dr. Martinez's office. She may need a sooner MRI. She has Magic mouthwash available for mouth soreness. She'll use this more on a regular basis. Continued to follow with medical oncology and review with them her side effects. We'll plan for recheck MRI of the brain in 3 months. We asked her to return to our office in 3 months. We will order the MRI to be performed before that visit. She may call if she has any questions or concerns in the interim. (Anila Torres PA-C) I agree with note created by Anila Torres PA-C. I reviewed the patient's chart and information with her. I have examined and evaluated the patient. I reviewed relevant clinical information and answered the patient's and/or family' s questions. (Veeral. Hernandez MD) Total Time In Follow-Up I spent 20 minutes speaking to the patient performing examination. I spent 15 minutes reviewing information and completing this note. (Anila Torres PA-C) I spent 15 minutes examining and counseling the patient. (Veeral. Hernandez MD) Copy To Gallo Marroquin M.D.; Kodi Martinez MD; Alex Ordonez MD
== END | disposition home or self-care (01) ==
LOC: C.ONC 13:58
PROVIDERS: ATTEND Physician Assistant Medical
DX: Z08 Encounter for follow-up examination after completed treatment for malignant neoplasm (principal); Z92.3 Personal history of irradiation; Z85.118 Personal history of other malignant neoplasm of bronchus and lung

== ENCOUNTER → 2017-02-02 | Outpatient (CLI) | payer OTHER ==
[~2017-02-02] MED LIST changes: +GADAVIST IV PRN; -ONDA4TAB65 PO; -PROC1TAB5 PO
--- NOTE | 2017-02-02 12:12 | DIAGNOSTIC IMAGING REPORT ---
BRAIN COMBO HISTORY: 56 years-old Female LUNG CA W/POSS BRAIN METS, NEW ONSET FIGUEROA'S. COMPARISON: Brain MR 10/18/2016, 10/04/2016 TECHNIQUE: Multiplanar multisequence MRI of the brain was obtained both with and without the use of 6 mL Gadavist IV contrast. FINDINGS: There is no evidence of restricted diffusion to suggest acute ischemia. Midline structures including the corpus callosum, brainstem, optic chiasm, pituitary gland, infundibulum and pineal gland appear unremarkable. No cerebellar tonsillar herniation. There is no acute intracranial hemorrhage, midline shift, hydrocephalus or abnormal extra-axial collections identified. The previously described 5 mm focus of cortically based enhancement involving the right parietal lobe near the vertex has decreased in size. There is now only minimal enhancement in this region measuring 3 x 2 mm. Flow voids at the level skull base are patent. Orbits are symmetric. There is mild ethmoid, frontal and maxillary sinus disease. Trace mastoid effusions are present. IMPRESSION: 1. No acute intracranial abnormality. No acute ischemia, hemorrhage or new enhancing lesions identified. 2. Decreased size of the previously noted cortically based enhancing lesion of the right parietal lobe near the vertex, now measuring 3 x 2 mm, previously 5 x 9 mm. 3. Mild paranasal sinus disease with trace bilateral mastoid effusions. The above report was generated using voice recognition software. It may contain grammatical, syntax or spelling errors. Electronically signed by: Reagan Bro M.D. 02/02/2017 12:11 PM Dictated Date/Time: 02/02/2017 11:59 AM
== END | disposition home or self-care (01) ==
LOC: C.MRI 10:28
PROVIDERS: ATTEND Internal Medicine Hematology & Oncology
DX: C34.11 Malignant neoplasm of upper lobe, right bronchus or lung (principal)

== ENCOUNTER → 2017-03-03 | Outpatient (CLI) | payer OTHER ==
[~2017-03-03] MED LIST changes: -GADAVIST IV PRN
[2017-03-03 13:19] LABS: BASO % 0.2 %; BASO ABS # 0.02 K/uL (0-0.2); COMPLETE YES; EOS % 0.1 %; HEMATOCRIT 34.7 % (37-47); IG% 0.4 %; LYMPH % 10.3 %; LYMPH ABS # 0.97 K/uL (1.2-3.4); MEAN CELL VOLUME 93.3 fL (80-100); MEAN CORPUSCULAR HEMOGLOBIN 31.2 pg (25-34); MEAN CORPUSCULAR HGB CONC 33.4 g/dl (32-36); MEAN PLATELET VOLUME 9.9 fL (7.4-10.4); MONO % 2.8 %; NEUT % 86.2 %; PLATELET COUNT 212 K/uL (130-400); RED BLOOD COUNT 3.72 M/uL (4.2-5.4); WHITE BLOOD COUNT 9.43 K/uL (4.8-10.8)
[2017-03-03 13:54] LABS: ALT/SGPT 28 U/L (12-78); BLOOD UREA NITROGEN 13 mg/dl (7-18); BUN/CREATININE RATIO 15.4 (10-20); CALCIUM 8.9 mg/dl (8.5-10.1); CARBON DIOXIDE 29 mmol/L (21-32); CHLORIDE 103 mmol/L (98-107); CREATININE 0.83 mg/dl (0.60-1.20); GLUCOSE 94 mg/dl (70-99); POTASSIUM 3.9 mmol/L (3.5-5.1); SODIUM 138 mmol/L (136-145)
[2017-03-03 13:57] LABS: ALB/GLOB RATIO 1.1 (0.9-2); ALKALINE PHOSPHATASE 60 U/L (45-117); AST/SGOT 16 U/L (15-37)
--- NOTE | 2017-03-04 08:03 | DIAGNOSTIC IMAGING REPORT ---
ABD WITH IV CONTRAST ONLY (CT) HISTORY: 56 years-old Female LUNG CANCER. This is a follow-up study status post therapy. Restaging. COMPARISON: CT abdomen and pelvis 10/04/2016 TECHNIQUE: Multiple axial CT images of the abdomen were obtained following the administration of 94 mL Optiray 320. A dose lowering technique was used consistent with the principals of JON. FINDINGS: Small loculated right pleural effusion is again noted, decreased in size from comparison study. 3 mm pleural-based noncalcified pulmonary nodule of the lateral basal segment left lower lobe is again noted, unchanged and likely benign. Minimal groundglass opacities of the inferior segment lingular suggest atelectasis, better evaluated on comparison chest CT of same day. There is no pneumoperitoneum identified. Imaged inferior cardiac chambers are unremarkable. There is decreased size of the right cardiophrenic lymph nodes. For example, previously noted lymph node which measured 2.1 x 0.8 cm now measures 1.1 x 0.4 cm on image 22 of the thin section axial series. Previously noted 8 x 7 mm lymph node now measures 4 x 3 mm on image 8. The liver, gallbladder, pancreas and adrenal glands are within normal limits. There is a wedge-shaped area of decreased attenuation involving the anterior spleen, 1.2 x 1.3 cm, nonspecific however the morphology of this area suggests prior splenic infarction. Subcentimeter low attenuating lesion of the inferior pole left kidney, 5 mm is nonspecific however suggests a cyst. No renal calculi or hydronephrosis. There is mild atherosclerotic plaquing of the abdominal aorta. No bulky retroperitoneal adenopathy. There is no bowel obstruction. Soft tissues are within normal limits. No suspicious lytic or blastic bony lesions to suggest metastasis. IMPRESSION: 1. No acute intra-abdominal abnormality identified. No evidence of solid organ metastasis or pathologic-appearing adenopathy. 2. Decreased size of the previously noted right cardiophrenic adenopathy suggests positive response to therapy. 3. Unchanged pleural-based 3 mm noncalcified pulmonary nodule of the lateral basal segment left lower lobe is noted, likely benign. 4. Decreased size of loculated right pleural effusion. The above report was generated using voice recognition software. It may contain grammatical, syntax or spelling errors. Electronically signed by: Reagan Bro M.D. 03/03/2017 12:39 PM Dictated Date/Time: 03/03/2017 12:30 PM
--- NOTE | 2017-03-04 08:03 | DIAGNOSTIC IMAGING REPORT ---
CT OF THE CHEST WITH IV CONTRAST CLINICAL HISTORY: Lung cancer. COMPARISON STUDY: Chest CT October 04, 2016. TECHNIQUE: Following IV administration of 94 mL of Optiray-320, helical axial images of the chest were obtained. Sagittal and coronal reconstructions were viewed as well as maximal intensity projections on an independent 3-D workstation. A dose lowering technique was utilized adhering to the principles of ALARA. CT DOSE: 350.39 mGy.cm FINDINGS: Postoperative findings consistent with a right upper lobectomy are noted. There is no pneumothorax. A small right pleural effusion has decreased in size since exam of October 04, 2016. There is mild residual pleural thickening. Size of the heart is normal. There is no pericardial effusion. The previously described enlarged mediastinal and right cardiophrenic angle lymph nodes are now normal in size. Index precarinal lymph node shown on image 117 of 301 measures 8 mm. Moderate emphysema is noted. A 5 mm left upper lobe nodule shown on image 60 is new since prior CT. Several right lower lobe nodules have decreased in size since exam of October 05, 2015. These measure up to 5 mm. No suspicious osseous lesions are present. The abdomen and pelvis will be reported separately. A capsular splenic hypodensity is unchanged and likely benign. IMPRESSION: 1. Findings suggestive of a mixed treatment response. Interval resolution of mediastinal/right cardiophrenic angle lymphadenopathy and decrease in size of several right lower lobe nodules. Interval development of a 5 mm left upper lobe nodule highly suggestive of metastatic disease. 2. Status post right upper lobectomy. Decrease in size of a small right pleural effusion. Mild right pleural thickening is nonspecific and can be assessed on subsequent exams. Electronically signed by: Sage Valencia M.D. 03/03/2017 12:49 PM Dictated Date/Time: 03/03/2017 12:30 PM
== END | disposition home or self-care (01) ==
LOC: C.CTS 11:51
PROVIDERS: ATTEND Internal Medicine Hematology & Oncology
DX: C34.11 Malignant neoplasm of upper lobe, right bronchus or lung (principal)

== ENCOUNTER → 2017-03-28 | Outpatient (CLI) | payer OTHER ==
--- NOTE | 2017-03-28 14:12 | DIAGNOSTIC IMAGING REPORT ---
PET/CT CLINICAL HISTORY: Lung cancer. TECHNIQUE: A PET/CT was performed from the skull base through the upper thighs following intravenous injection of mCi of F 18 FDG IV. The injection was performed at and imaging began at . Unenhanced CT was performed for attenuation correction purposes and anatomic localization. COMPARISON STUDY: PET CT July 21, [address] of the chest, abdomen and pelvis March 03, 2017 and MRI the brain February 02, 2017.. FINDINGS: Head and neck: No suspicious FDG uptake is identified within the neck. There is no cervical lymphadenopathy. Visualized portions of the brain are unremarkable on this unenhanced CT. Mild bilateral supraclavicular FDG uptake likely represents brown fat uptake. This was present on prior exam. Chest: There are are findings consistent with a right upper lobectomy. A small right pleural effusion is unchanged since CT of March 03, 2017. There is mild right lower hemithorax pleural radiotracer uptake with SUV max of 2.8. No enlarged thoracic lymph nodes are present. The mediastinal/right cardiophrenic angle lymphadenopathy shown on chest CT of October 04, 2016 has resolved. These nodes are now normal in size. A 6 mm left upper lobe nodule shown on image 65 has slightly increased in size since chest CT of March 03, 2017 when it measured 5 mm. This has mild FDG uptake with an SUV max of 1.9. A 4 mm left upper lobe nodule shown image 73 has also increased in size. In retrospect, this was present on prior chest CT. This nodule may have minimal FDG uptake. Additional pulmonary nodules are unchanged. Abdomen and Pelvis: No suspicious FDG uptake is identified within the abdomen or the pelvis. There is no abdominal or pelvic lymphadenopathy. Musculoskeletal: No suspicious skeletal uptake is identified. IMPRESSION: 1. Slight increase in size of two small left upper lobe nodules since chest CT of March 03, 2017. These nodules have mild FDG uptake and are highly suggestive of metastatic disease. 2. Stable postsurgical findings consistent with right upper lobectomy. Small right pleural effusion with mild pleural uptake which is likely postsurgical but can be assessed on subsequent exams. 3. No evidence of metastatic disease within the neck, abdomen or pelvis. Electronically signed by: Sage Valencia M.D. 03/28/2017 2:11 PM Dictated Date/Time: 03/28/2017 1:14 PM
== END | disposition home or self-care (01) ==
LOC: C.PET 10:46
PROVIDERS: ATTEND Internal Medicine Hematology & Oncology
DX: C34.11 Malignant neoplasm of upper lobe, right bronchus or lung (principal); R91.8 Other nonspecific abnormal finding of lung field

== ENCOUNTER → 2017-05-20 | Outpatient (CLI) | payer OTHER ==
[~2017-05-20] MED LIST changes: +ONDA4TAB65 PO; +PROC1TAB5 PO
[2017-05-20 09:54] VITALS: BP 111/70; PULSE 82; TEMP 36.7; O2SAT 97
--- NOTE | 2017-05-20 10:51 | Radiation Oncology Follow-Up ---
Radiation Oncology Follow-Up Date of Visit May 20, 2017. Reason For Visit 6 month follow-up Radiation Completion Date finished SBRT to brain 11-03-2016 Diagnosis (1) Lung cancer Status: Chronic Onset Date: 08/05/2016 Location: brain metastasis Histology Subtype: adenocarcinoma Stage: IV Permanent Comment: Chronic cough CT finding of a right upper lobe mass 06/25/2016 Status post bronchoscopy and biopsy 08/05/2016 revealing adenocarcinoma Status post right upper lobectomy and mediastinal lymphadenectomy 09/14/2016 Stage pT3 [id number] Staging evaluation revealing a solitary brain metastasis Status post stereotactic radiation therapy to the brain 11/03/2016 received 1800 cGy Last Edited By: Anila Torres on November 15, 2016 13:02 History of Present Illness Ms. May underwent a PET/CT scan on 07/21/2016 which revealed: "IMPRESSION: 1. An 8.5 cm right suprahilar pulmonary mass lesion is again seen. This is markedly FDG avid and typical in appearance for a primary lung cancer. 2. There are 3 mm pulmonary nodules at the right apex and in the right lower lobe that are too small for PET characterization and indeterminant. These were also seen on the 06/25/2016 examination. 3. No left-sided pulmonary lesions are identified. 4. No FDG avid hilar or mediastinal lymph nodes are clearly identified. A mildly enlarged precarinal node is again seen and indeterminant, as this node did not show FDG uptake. 5. There is periosteal reaction seen involving the right posterior eighth rib with low level FDG activity. This is indeterminant and could represent a healing fracture. A metastatic focus would be impossible to exclude. Attention at follow-up is recommended. 6. There is no evidence of extrathoracic metastatic disease. 7. Emphysema." She had a CT thorax completed on 07/23/2016 which revealed: "IMPRESSION: 1. 7.8 cm right upper lobe pulmonary mass extending to the right apical pleura and abutting the right innominate vein and superior vena cava. The mass is irregularly marginated and highly suspicious for a bronchogenic carcinoma 2. Scattered subcentimeter pulmonary nodules 3. Mildly enlarged precarinal lymph node." She underwent a endobronchial ultrasound and bronchoscopy on 08/05/2016 which confirmed the presence of adenocarcinoma. Multiple mucous and lymph nodes were biopsied and were negative however a R10 lymph node was biopsied which was nondiagnostic. The patient was then treated with a surgical resection on [address] Alex Ordonez. She underwent a right upper lobectomy and lymph node sampling which revealed a 10.5 cm primary lung cancer that was non-small cell lung carcinoma consistent with adenocarcinoma. The margins were negative however there was visceral pleural invasion and one peribronchial lymph node was positive so the patient was stages pathologic [id number]. The patient was referred to Dr. Kodi Martinez for medical oncology who was recommending adjuvant chemotherapy. Dr. Martinez completed a staging workup with an MRI of the brain on 10/04/2016 which revealed: "IMPRESSION: 1. 8 mm focus of peripheral enhancement posterior right prior convexity 2. A solitary metastatic focus must be considered given the patient's history. 3. Remainder of the study is negative." Dr. Martinez did complete staging workup with a CT of the chest, abdomen, pelvis on 09/14/2016 which revealed: "IMPRESSION: 1. Emphysema and postoperative changes from right upper lobe resection. 2. There are 2 pulmonary nodules at the right lung base measuring up to 5 mm and a 3 mm left upper lobe pulmonary nodule. These are indeterminant and unchanged from . 3. There is a loculated pleural collection at the right lung base, likely on a postoperative basis. 4. There is no airspace consolidation typical for pneumonia. 5. There are enlarging right cardiophrenic lymph nodes. Additionally, there is a mildly enlarged precarinal lymph node. These are pathologically indeterminant and christofer metastatic disease is not excluded. 6. There is no evidence of metastatic disease in the abdomen or pelvis. 7. Moderate constipation. 8. Additional findings as above." We have been asked to evaluate the patient for consideration of radiation therapy to the brain. Currently, the patient's only symptom is she is been having some nausea otherwise she is asymptomatic. She denies any other significant focal neurologic deficits. She was evaluated and found to be a candidate for brain SRS. This was completed 11/03/2016. She received 1800 cGy Interim History Since completion of her treatment she has had no difficulty with headaches. She denies any blurred vision. No problems with dizziness. She does have issues with nausea. This has been ongoing since the completion of her chemotherapy. She has continued to take Compazine and Zofran on a very regular basis. She denies vomiting. She has gained 2 pounds since her last visit. She continues to have issues with insomnia. She continued to smoke. She smokes 8 cigarettes per day. She completed chemotherapy 01/07/2017. Allergies Coded Allergies: No Known Allergies (Unverified , 10/04/16) Home Medications Scheduled Alprazolam (Xanax), 1 MG PO QID Dronabinol (Marinol), 1 CAP PO TID Ondansetron Hcl (Zofran), 4 MG PO BID Sennosides-Docusate Sodium (Stool Softener), 2 TAB PO DAILY Trazodone Hcl (Trazodone), 150 MG PO HS Scheduled PRN Hydrocodone/Acetaminophen 5MG/325MG ([place] 5MG/325MG), 1-2 TAB PO Q12 PRN for Pain Prochlorperazine Maleate (Compazine), 1 TAB PO Q6 PRN for Nausea or Vomiting Tramadol (Ultram), 50-100 MG PO BID PRN for Pain Review of Systems Gastrointestinal: Symptoms: Nausea GI Comments: denies vomiting, takes meds as needed Oral: Symptoms: No Problems Respiratory: Symptoms: Moist Cough, SOB With Exertion Urinary: Symptoms: Nocturia Comments: nocturia times 1 Skin: Symptoms: No Problems Physical Exam Vital Signs Date Time Temp Pulse Resp B/P (MAP) Pulse Ox O2 Delivery O2 Flow Rate FiO2 05/20/17 09:54 36.7 82 20 111/70 97 Fatigue: None General Appearance: no apparent distress Eyes: normal inspection, EOMI ENT: normal ENT inspection, hearing grossly normal Respiratory/Chest: lungs clear Cardiovascular: regular rate, rhythm, no gallop, no murmur Extremities: no pedal edema Neurologic/Psychiatric: no motor/sensory deficits, alert, normal mood/affect Skin: warm/dry Lymphatic: no adenopathy Pain Management Side: Bilateral Patient Preferred Pain Scale: 0 - 10 Laboratory Studies Test 03/03/17 12:36 White Blood Count 9.43 K/uL (4.8-10.8) Red Blood Count 3.72 M/uL (4.2-5.4) Hemoglobin 11.6 g/dL (12.0-16.0) Hematocrit 34.7 % (37-47) Mean Corpuscular Volume 93.3 fL (80-100) Mean Corpuscular Hemoglobin 31.2 pg (25-34) Mean Corpuscular Hemoglobin Concent 33.4 g/dl (32-36) Platelet Count 212 K/uL (130-400) Mean Platelet Volume 9.9 fL (7.4-10.4) Neutrophils (%) (Auto) 86.2 % Lymphocytes (%) (Auto) 10.3 % Monocytes (%) (Auto) 2.8 % Eosinophils (%) (Auto) 0.1 % Basophils (%) (Auto) 0.2 % Neutrophils # (Auto) 8.13 K/uL (1.4-6.5) Lymphocytes # (Auto) 0.97 K/uL (1.2-3.4) Monocytes # (Auto) 0.26 K/uL (0.11-0.59) Eosinophils # (Auto) 0.01 K/uL (0-0.5) Basophils # (Auto) 0.02 K/uL (0-0.2) RDW Standard Deviation 48.4 fL (36.4-46.3) RDW Coefficient of Variation 14.0 % (11.5-14.5) Immature Granulocyte % (Auto) 0.4 % Immature Granulocyte # (Auto) 0.04 K/uL (0.00-0.02) Sodium Level 138 mmol/L (136-145) Potassium Level 3.9 mmol/L (3.5-5.1) Chloride Level 103 mmol/L (98-107) Carbon Dioxide Level 29 mmol/L (21-32) Anion Gap 6.0 mmol/L (3-11) Blood Urea Nitrogen 13 mg/dl (7-18) Creatinine 0.83 mg/dl (0.60-1.20) Estimated GFR () 92.7 Estimated GFR (Non- 79.9 BUN/Creatinine Ratio 15.4 (10-20) Random Glucose 94 mg/dl (70-99) Calcium Level 8.9 mg/dl (8.5-10.1) Total Bilirubin 0.2 mg/dl (0.2-1) Aspartate Amino Transferase (AST) 16 U/L (15-37) Alanine Aminotransferase (ALT) 28 U/L (12-78) Alkaline Phosphatase 60 U/L (45-117) Lactate Dehydrogenase 188 U/L (84-246) Total Protein 6.8 gm/dl (6.4-8.2) Albumin 3.6 gm/dl (3.4-5.0) Globulin 3.2 gm/dl (2.5-4.0) Albumin/Globulin Ratio 1.1 (0.9-2) Additional Studies Patient: HENRIETTA MAY Address1: [address] [facility] Rec: [id number] Address2: Acct ID: [id number] [facility] Zip: [place] [address] Date: 1960 Sex: F Room/Bed: Ref Phy: Kodi Martinez MD SC: C.MRI Att Phy: Anila Torres PA-C Report #: [id number] Nelida Phy: Gallo Marroquin M.D. Test: [facility] Admit Phy: [employer] Machine Operator: RAE Interpreting Phy: Porfirio Bro D.O. Diagnosis: LUNG CA W/BRAIN METS Ordering Phy: Anila Torres PA-C Service Date: 05/06/17 Admit Date: 05/06/17 MNE: [id number] CONF: DICTATED BY: Porfirio Bro D.O.]] CC: Gallo Marroquin M.D. Kline, Angelica, PA-C O'Donnell, Sean B., MD Endcc: [~ rep ct add3]] BRAIN COMBO HISTORY: 57 years-old Female LUNG CA W/BRAIN METS acute headache with dizziness and nausea. History of lung cancer and brain metastasis COMPARISON: Brain MR 02/02/2017 TECHNIQUE: Multiple and multisequence MRI the brain was obtained both with and without the use of 6 mL Gadavist FINDINGS: No restricted diffusion to suggest acute ischemia. Midline structures including the corpus callosum, brainstem, optic chiasm, pituitary gland and infundibulum and pineal gland are unremarkable in the sagittal T1 sequence. No cerebellar tonsillar herniation. Slightly increased signal of the right transverse and sigmoid sinus suggests slow venous flow without thrombus. Imaged upper cervical spine is unremarkable. No acute intracranial hemorrhage, midline shift, hydrocephalus or abnormal extra-axial collections. The previously noted cortically based enhancing lesion of the posterior right parietal lobe which measured 3 x 2 mm and study dated 02/02/2017 has again decreased in size and appears less apparent on today's study, now measuring 2 x 2 mm, not well seen on the coronal images. There is no significant associated edema within this distribution. No additional enhancing intra-axial or extra-axial foci to suggest metastasis. Major flow voids at the level the skull base are patent. Scalp and soft tissues and calvarium are unremarkable. Mild polypoid mucosal thickening of the inferior left maxillary sinus. Mild ethmoid sinus disease. IMPRESSION: 1. No acute intracranial abnormality. 2. Continued decreased size and conspicuity of the enhancing cortically based posterior right parietal lobe lesion, now measuring 2 x 2 mm. No associated significant edema or mass effect. No new enhancing lesions identified. 3. Mild paranasal sinus disease. The above report was generated using voice recognition software. It may contain grammatical, syntax or spelling errors. Electronically signed by: Reagan Bro M.D. 05/06/2017 11:25 AM Dictated Date/Time: 05/06/2017 11:17 AM Assessment & Plan Plan: Patient was also seen by Dr. Hernandez. The MRI was reviewed. This shows continued improvement. We'll continue follow-up MRIs. We'll plan a recheck MRI and follow-up visit in 3 months. We discussed the issues of nausea. I've asked her to take Prilosec once daily to see if this helps with the nausea. She can also review this with Dr. Martinez. She'll be seeing him in June. I discussed weaning off of cigarettes. I'm going to give her name to Mary Kate An to be part of smoke cessation program when available. She was given a card for the 1 800 quit number. We discussed increasing hydration. She is on a new medication for depression but did not know the name of the medicine. Assessment & Plan (Attending) ADDENDUM: I agree with note created by Anila Torres PA-C. I reviewed the patient's chart and information with her. I have examined and evaluated the patient. I reviewed relevant clinical information and answered the patient's and /or family's questions. AIR BAG CURER Total Time In Follow-Up I spent 20 minutes speaking to the patient and performing examination. I spent 15 minutes reviewing information in completing this note. Total Time (Attending) In Follow-Up I spent 15 minutes examining and counseling the patient. AIR BAG CURER Copy To Gallo Marroquin M.D.; Kodi Martinez MD; Alex Ordonez MD Problem Qualifiers (1) Lung cancer: Laterality: right Lung location: upper lobe of lung Qualified Codes: C34.11 - Malignant neoplasm of upper lobe, right bronchus or lung
== END | disposition home or self-care (01) ==
LOC: C.ONC 09:14
PROVIDERS: ATTEND Physician Assistant Medical
DX: Z08 Encounter for follow-up examination after completed treatment for malignant neoplasm (principal); Z92.3 Personal history of irradiation; Z85.118 Personal history of other malignant neoplasm of bronchus and lung

== ENCOUNTER → 2017-06-15 | Outpatient (CLI) | payer OTHER ==
[~2017-06-15] MED LIST changes: -ESCI10TA17 PO; -MULT-506 PO; +OPTIRAY 320 IV PRN
--- NOTE | 2017-06-15 16:25 | DIAGNOSTIC IMAGING REPORT ---
CT SCAN OF THE CHEST, ABDOMEN, AND PELVIS WITH IV CONTRAST CLINICAL HISTORY: Lung cancer. COMPARISON STUDY: Chest CT scans dated 03/03/2017 and 07/23/2016. Abdominal CT dated 03/03/2017. PET/CT dated 03/28/2017. TECHNIQUE: Following the IV administration of 93 of Optiray 320, CT scan of the chest, abdomen, and pelvis was performed from the thoracic inlet to the proximal femora. Images are reviewed in the axial, sagittal, and coronal planes. IV contrast was administered without complication. Automated dose control exposure was utilized. A dose lowering technique was utilized adhering to the principles of ALARA. CT DOSE: 469.81 mGy.cm FINDINGS: CHEST: Thyroid: Imaged portions of the thyroid gland are normal in size and attenuation. Thoracic aorta: There is mild atherosclerotic calcification of the thoracic aorta, which is normal in caliber and demonstrates standard 3-vessel arch anatomy. No dissection is seen. A right subclavian central venous infusion port is in place. Pulmonary vasculature: The pulmonary trunk is normal in caliber. There are no filling defects identified in the central pulmonary vessels to indicate pulmonary embolus. Note that this examination was not protocoled for evaluation of the pulmonary arteries. Heart: The patient is status post midline sternotomy. The heart is normal in size and without pericardial effusion. Lungs and pleural spaces: Emphysema is noted. Again seen are postoperative changes from right upper lobe resection. Pleural fluid is again noted at the right lung base, and is likely on a postoperative basis. Patchy tree-in-bud opacities and groundglass change are seen throughout the inferior right lower lobe, possibly on an infectious/inflammatory basis. The trachea and central airways are clear. A 5 mm right lower lobe nodule on image #188 is unchanged. There has been progression of multifocal pulmonary metastatic disease in the left lung as compared to 03/28/2017. There are at least 7 pulmonary nodules scattered throughout the left lung. The largest nodule at the left apex seen on image #57 measures up to 1.8 cm (previously measuring up to 0.6 cm). A left upper lobe lesion on image #92 measures 1.5 cm (previously measured 0.4 cm). The largest nodule in the left lower lobe is seen on image #235 and measures 1.0 cm (not previously identified). Additional subcentimeter nodules are also new from previous. Mediastinum: A prominent precarinal node seen on image #120 measures 8mm in short axis. This is similar to prior studies. A prevascular node on image #115 measures 0.9 cm short axis. This is increasingly prominent from previous. [place]: Clear. Lower neck: No supraclavicular adenopathy is identified. Axillae: There is no axillary lymphadenopathy. Bony thorax: The skeletal structures are osteopenic. Arthritic changes seen in the right shoulder. Mild degenerative change is noted in the thoracic spine. No lytic or blastic lesions are identified. ABDOMEN AND PELVIS: Liver: The contrast-enhanced liver is normal in size, contour, and attenuation. There is no intrahepatic or ductal dilatation. The hepatic veins and portal veins are patent. Gallbladder: Contracted. Spleen: Normal in size and attenuation. Pancreas: Unremarkable. Adrenal glands: Unremarkable. Kidneys: The contrast enhanced kidneys are normal in size and without hydronephrosis. The kidneys enhance symmetrically. Abdominal vasculature: The abdominal aorta is normal in course and caliber noting mild to moderate atherosclerotic calcification. Bowel: The small bowel and colon are normal in course and caliber. The partially visualized appendix is grossly normal. Peritoneum: There is no intraperitoneal free air or abdominal ascites. Lymphadenopathy: Prominent right cardiophrenic nodes measure up to 6 mm in short axis. Pelvic viscera: The bladder is normal as visualized. The uterus is surgically absent. No adnexal lesion is seen. Skeletal structures: No lytic or blastic lesions are seen. IMPRESSION: 1. Emphysema and postoperative change from right upper lobe resection are similar to previous. 2. Overall significant progression of left-sided pulmonary metastatic disease as compared to 03/28/2017 PET/CT. 3. Prominent mediastinal lymph nodes and right cardiophrenic nodes are pathologically indeterminant but concerning for metastatic involvement. 4. Pleural fluid at the right lung base is unchanged from previous and likely on a postoperative basis. 5. Tree-in-bud opacities with mild groundglass change in the dependent right lower lobe are nonspecific and likely represent an infectious/inflammatory pneumonitis. Clinical correlation will be required and attention at follow-up is recommended. 6. There is no evidence of metastatic disease in the abdomen or pelvis. 7. Additional findings as above. Electronically signed by: Deven Charles M.D. 06/15/2017 4:24 PM Dictated Date/Time: 06/15/2017 4:06 PM
== END | disposition home or self-care (01) ==
LOC: C.CTS 13:43
PROVIDERS: ATTEND Internal Medicine Hematology & Oncology
DX: C34.11 Malignant neoplasm of upper lobe, right bronchus or lung (principal); J43.9 Emphysema, unspecified; Z90.2 Acquired absence of lung [part of]; C78.02 Secondary malignant neoplasm of left lung

== ENCOUNTER → 2017-07-05 | Outpatient (CLI) | payer OTHER ==
[~2017-07-05] MED LIST changes: +GADAVIST IV PRN; -OPTIRAY 320 IV PRN
--- NOTE | 2017-07-05 14:14 | DIAGNOSTIC IMAGING REPORT ---
BRAIN COMBO CLINICAL HISTORY: 57 years-old Female presenting with BRAIN METASTASIS, nausea of unknown origin. TECHNIQUE: Multisequence, multiplanar MR imaging of the brain was performed before and after the administration of intravenous contrast. IV contrast: 5.5 mL of Gadavist. COMPARISON: 05/06/2017. FINDINGS: Ventricles and sulci normal in size. Previously noted enhancing lesion at the molina-white matter junction in the right parietal lobe is not significant changed from prior (series 8 image 18). No new lesion. Brain parenchyma otherwise normal in appearance with preserved molina-white differentiation. No mass effect or midline shift. No restricted diffusion to suggest acute ischemia. No hemorrhage. No extra-axial fluid collection. T2 skull base flow voids preserved. Bone marrow signal intensity within the calvarium within normal limits. IMPRESSION: 1. No acute intracranial abnormality. 2. Stable appearance of the enhancing metastatic lesion in the right parietal lobe. No new lesion. Electronically signed by: Jean Paul Bruce M.D. 07/05/2017 2:12 PM Dictated Date/Time: 07/05/2017 2:00 PM
== END | disposition home or self-care (01) ==
LOC: C.MRIBC 11:53
PROVIDERS: ATTEND Internal Medicine Hematology & Oncology
DX: C79.31 Secondary malignant neoplasm of brain (principal); C34.11 Malignant neoplasm of upper lobe, right bronchus or lung; R11.0 Nausea

== ENCOUNTER → 2017-08-19 | Outpatient (CLI) | payer OTHER ==
[~2017-08-19] MED LIST changes: -GADAVIST IV PRN
[2017-08-19 09:52] VITALS: BP 90/60; PULSE 92; TEMP 36.8; O2SAT 99
--- NOTE | 2017-08-19 11:05 | Radiation Oncology Follow-Up ---
Radiation Oncology Follow-Up Date of Visit Aug 19, 2017. Reason For Visit 10 months post radiation Radiation Completion Date SBRT 11/03/16 Diagnosis (1) Lung cancer Status: Chronic Onset Date: 08/05/2016 Location: brain metastasis Histology Subtype: adenocarcinoma Stage: IV Permanent Comment: Chronic cough CT finding of a right upper lobe mass 06/25/2016 Status post bronchoscopy and biopsy 08/05/2016 revealing adenocarcinoma Status post right upper lobectomy and mediastinal lymphadenectomy 09/14/2016 Stage pT3 [id number] Staging evaluation revealing a solitary brain metastasis Status post stereotactic radiation therapy to the brain 11/03/2016 received 1800 cGy Last Edited By: Anila Torres on November 15, 2016 13:02 Allergies Coded Allergies: No Known Allergies (Unverified , 10/04/16) Home Medications Scheduled Alprazolam (Xanax), 1 MG PO QID Dronabinol (Marinol), 1 CAP PO TID Ondansetron Hcl (Zofran), 4 MG PO BID Sennosides-Docusate Sodium (Stool Softener), 2 TAB PO DAILY Trazodone Hcl (Trazodone), 150 MG PO HS Scheduled PRN Hydrocodone/Acetaminophen 5MG/325MG ([place] 5MG/325MG), 1-2 TAB PO Q12 PRN for Pain Prochlorperazine Maleate (Compazine), 1 TAB PO Q6 PRN for Nausea or Vomiting Tramadol (Ultram), 50-100 MG PO BID PRN for Pain Review of Systems Gastrointestinal: Symptoms: Nausea GI Comments: Constant nausea;no emesis;takes antiemetics - no relief; Oral: Other Oral Symptoms: Constipation - manageable at home; Respiratory: Symptoms: Moist Cough, SOB With Exertion Sputum Character: Has very moist sounding cough, but can't get phlegm coughed up. Urinary: Symptoms: WNL Skin: Symptoms: No Problems Physical Exam Vital Signs Date Time Temp Pulse Resp B/P (MAP) Pulse Ox O2 Delivery O2 Flow Rate FiO2 08/19/17 09:52 36.8 92 16 90/60 99 General Appearance: no apparent distress Eyes: normal inspection, PERRL, EOMI ENT: normal ENT inspection, hearing grossly normal Neck: no adenopathy, thyroid normal Respiratory/Chest: no respiratory distress, no accessory muscle use, + wheezing (right lung gerber) Cardiovascular: regular rate, rhythm, no gallop, no murmur Extremities: no pedal edema Neurologic/Psychiatric: no motor/sensory deficits, alert, normal mood/affect Skin: warm/dry Lymphatic: no adenopathy Pain Management Patient Reports Pain: Yes Side: Bilateral Pain Location: under each axilla at nipple level Patient Preferred Pain Scale: 0 - 10 Initial Pain Intensity: 7.0 Pain Management Plan Pain management is through medical oncology or the primary care physician. Laboratory Laboratory Results: not applicable Pathology Pathology Results: not applicable Imaging Imaging Studies: were reviewed, and pertinent findings noted below Imaging Comments Patient: HENRIETTA MAY Address1: [address] Rec: [id number] Address2: Acct ID: [id number] [facility] Zip: [place] [address] Date: 1960 Sex: F Room/Bed: Ref Phy: Gallo Marroquin M.D. SC: C.MRIBC Att Phy: Kodi Martinez MD Report #: [id number] Nelida Phy: Gallo Marroquin M.D. Test: BR Admit Phy: Weaver Apprentice: JASIEL Interpreting Phy: Jean Paul Bruce MD Diagnosis: NON SMALL CELL LUNG CA,PRIOR HX BRAIN METS Ordering Phy: Kodi Martinez MD Service Date: 07/05/17 Admit Date: 07/05/17 MNE: [id number] CONF: DICTATED BY: Jean Paul Bruce MD]] CC: Gallo Marroquin M.D. O'Donnell, Sean B., MD Endcc: [~ rep ct add3]] BRAIN COMBO CLINICAL HISTORY: 57 years-old Female presenting with BRAIN METASTASIS, nausea of unknown origin. TECHNIQUE: Multisequence, multiplanar MR imaging of the brain was performed before and after the administration of intravenous contrast. IV contrast: 5.5 mL of Gadavist. COMPARISON: 05/06/2017. FINDINGS: Ventricles and sulci normal in size. Previously noted enhancing lesion at the molina-white matter junction in the right parietal lobe is not significant changed from prior (series 8 image 18). No new lesion. Brain parenchyma otherwise normal in appearance with preserved molina-white differentiation. No mass effect or midline shift. No restricted diffusion to suggest acute ischemia. No hemorrhage. No extra-axial fluid collection. T2 skull base flow voids preserved. Bone marrow signal intensity within the calvarium within normal limits. IMPRESSION: 1. No acute intracranial abnormality. 2. Stable appearance of the enhancing metastatic lesion in the right parietal lobe. No new lesion. Electronically signed by: Jean Paul Bruce M.D. 07/05/2017 2:12 PM Dictated Date/Time: 07/05/2017 2:00 PM Assessment & Plan She was also seen today by Dr. Hernandez. She'll continue close follow-up with Dr. Martinez. She is getting chemotherapy every 3 weeks. The MRI was reviewed. We'll plan for a recheck MRI in 3 months with a follow-up visit after. We discussed looks cessation. She had previously considered the program here at [facility]. She stated that this was too far for her to drive. I did review with her that there is a smoke cessation program available at [facility]. She stated that this would be much closer to her home. We called and her name was given to the quality assurance test program manager. They will call her when there is another class starting. Assessment & Plan (Attending) I agree with note created by Anila Torres PA-C. I reviewed the patient's chart and information with her. I have examined and evaluated the patient. I reviewed relevant clinical information and answered the patient's and/or family' s questions. DRY CHARGE PROCESS ATTENDANT Total Time In Follow-Up I spent 20 minutes speaking to the patient performing examination. I spent 20 minutes reviewing information, filling out an insurance document, and completing this note. AK Total Time (Attending) In Follow-Up I spent 15 minutes examining and counseling the patient. DRY CHARGE PROCESS ATTENDANT Copy To Gallo Marroquin M.D.; Kodi Martinez MD; Alex Ordonez MD
== END | disposition home or self-care (01) ==
LOC: C.ONC 09:28
PROVIDERS: ATTEND Physician Assistant Medical
DX: Z08 Encounter for follow-up examination after completed treatment for malignant neoplasm (principal); Z92.3 Personal history of irradiation; Z85.118 Personal history of other malignant neoplasm of bronchus and lung

== ENCOUNTER → 2017-10-06 | Outpatient (CLI) | payer OTHER ==
[~2017-10-06] MED LIST changes: +OPTIRAY 320 IV PRN
--- NOTE | 2017-10-06 13:23 | DIAGNOSTIC IMAGING REPORT ---
CT SCAN OF THE CHEST, ABDOMEN, AND PELVIS WITH IV CONTRAST CLINICAL HISTORY: Lung cancer. COMPARISON STUDY: CT scan of the chest, abdomen, and pelvis dated 06/15/2017. Chest CT dated 06/25/2016. TECHNIQUE: Following the IV administration of 114 of Optiray 320, CT scan of the chest, abdomen, and pelvis was performed from the thoracic inlet to the proximal femora. Images are reviewed in the axial, sagittal, and coronal planes. IV contrast was administered without complication. Automated dose control exposure was utilized. A dose lowering technique was utilized adhering to the principles of ALARA. CT DOSE: 869.85 mGycm FINDINGS: CHEST: Thyroid: Imaged portions of the thyroid gland are normal in size and attenuation. Thoracic aorta: There is mild atherosclerotic calcification of the thoracic aorta, which is normal in caliber and demonstrates standard 3-vessel arch anatomy. No dissection is seen. A right subclavian central venous infusion port is in place. Pulmonary vasculature: The pulmonary trunk is normal in caliber. There are no filling defects identified in the central pulmonary vessels to indicate pulmonary embolus. Note that this examination was not protocoled for evaluation of the pulmonary arteries. Heart: The patient is status post midline sternotomy. The heart is top normal in size and without pericardial effusion. Lungs and pleural spaces: Emphysema is noted. Again seen are postoperative changes from right upper lobe resection. Pleural fluid is again noted at the right lung base, and is likely on a postoperative basis. Layering secretions are noted in the trachea. Overall there has been mixed response to treatment as compared to 06/15/2017. The nodule at the left apex is seen on image #74 measures 0.8 cm (previously measured 1.8 cm). A left upper lobe lesion seen on image #107 measures 0.9 cm (previously measured 1.5 cm). A 5 mm nodule at the left lung base on image #20 and 66 measures 0.5 cm (previously measuring 0.9 cm). A 0.5 cm left lower lobe nodule on image #254 is new from previous, as is a 4 mm left upper lobe nodule on image #142. Additional 2 to 3 mm nodules are noted. There is a 1.6 x 0.8 cm right lower lobe nodule seen image #161. This is new from previous. A 0.6 cm nodule in the left upper lobe along the mediastinum seen on image #118 has also increased in size from previous. Tree-in-bud nodularity at the right lung base is most completely resolved from previous. A 5 mm right lower lobe nodule image #207 and a 6 mm right lower lobe nodule on image 217 aren't unchanged. Mediastinum: A prominent precarinal node seen on image #126 measures 9 mm in short axis and a prevascular node on image #119 measures 0.8 cm short axis. These are similar appearance to previous. Bozena: Clear. Lower neck: No supraclavicular adenopathy is identified. Axillae: There is no axillary lymphadenopathy. Bony thorax: The skeletal structures are osteopenic. Arthritic changes seen in the right shoulder. Mild degenerative change is noted in the thoracic spine. No lytic or blastic lesions are identified. ABDOMEN AND PELVIS: Liver: The contrast-enhanced liver is normal in size, contour, and attenuation. There is no intrahepatic or ductal dilatation. The hepatic veins and portal veins are patent. Gallbladder: Unremarkable. Spleen: Normal in size and attenuation. Pancreas: Unremarkable. Adrenal glands: Unremarkable. Kidneys: The contrast enhanced kidneys are normal in size and without hydronephrosis. The kidneys enhance symmetrically. There is a retroaortic left renal vein. Abdominal vasculature: The abdominal aorta is normal in course and caliber noting mild to moderate atherosclerotic calcification. Bowel: There is moderate colonic fecal retention. No bowel obstruction is seen. The partially visualized appendix is grossly normal. Peritoneum: There is no intraperitoneal free air or abdominal ascites. Lymphadenopathy: Prominent right cardiophrenic nodes measure up to 6 mm in short axis. Pelvic viscera: The bladder appears circumferentially thick walled. The uterus is surgically absent. No adnexal lesion is seen. Skeletal structures: No lytic or blastic lesions are seen. IMPRESSION: 1. Emphysema and postoperative change from right upper lobe resection are similar to previous. 2. Overall mixed response of pulmonary metastatic disease as compared to 06/15/2017. The largest lesions in the left lung have significantly decreased in size from previous. There is a new 1.6 cm lesion in the right lower lobe, as well as additional new subcentimeter left-sided lesions. 3. Prominent mediastinal lymph nodes and right cardiophrenic nodes are unchanged from previous. 4. Pleural fluid at the right lung base is unchanged from previous and likely on a postoperative basis. 5. Previously described tree-in-bud opacities and groundglass change at the right lung base have almost completely resolved from previous and were likely on an infectious/inflammatory basis. 6. There is no evidence of metastatic disease in the abdomen or pelvis. 7. The bladder appears circumferentially thick walled. Correlation with urinalysis is recommended. 8. Additional findings as above. Electronically signed by: Deven Charles M.D. 10/06/2017 1:22 PM Dictated Date/Time: 10/06/2017 1:04 PM
== END | disposition home or self-care (01) ==
LOC: C.CTS 10:54
PROVIDERS: ATTEND Internal Medicine Hematology & Oncology
DX: C34.11 Malignant neoplasm of upper lobe, right bronchus or lung (principal); R91.8 Other nonspecific abnormal finding of lung field

== ENCOUNTER → 2017-11-11 | Outpatient (CLI) | payer OTHER ==
[~2017-11-11] MED LIST changes: +GADAVIST IV PRN
--- NOTE | 2017-11-11 10:46 | DIAGNOSTIC IMAGING REPORT ---
BRAIN COMBO CLINICAL HISTORY: * SRS PROTOCOL* LUNG CA W/ POSSIBLE METS metastatic disease COMPARISON STUDY: 07/05/2017 TECHNIQUE: Utilizing a 1.5 Janet magnet and dedicated coil, multiplanar, multiecho imaging of the brain was performed pre and postcontrast administration. IV administration of 7.5 mL of Gadavist contrast was uneventful. FINDINGS: Diffusion-weighted images remain negative for an acute ischemic process. The small lesion previously described medial aspect right superior parietal lobe has diminished in size by 50%. It is not seen on the coronal images and is only faintly identified on the transaxial postcontrast images. There are no new or additional findings. Ventricular system is midline. Sella and parasellar regions are unremarkable. Ventricular system shows no displacement. IMPRESSION: 1. Improved exam with a single small enhancing focus medial aspect right parietal convexity diminished in volume by 50%. 2. It is seen only on the transaxial images and is not identified on the coronal images. 3. Remainder the brain is negative with no additional focus of postcontrast enhancement. The above report was generated using voice recognition software. It may contain grammatical, syntax or spelling errors. Electronically signed by: Rodolfo Reilly M.D. 11/11/2017 10:44 AM Dictated Date/Time: 11/11/2017 10:35 AM
--- NOTE | 2017-11-11 11:00 | DIAGNOSTIC IMAGING REPORT ---
CT (CHEST) THORAX WITH CT DOSE: 206.68 mGy.cm HISTORY: Lung carcinoma LUNG CA W/POSSIBLE METS TECHNIQUE: Multiaxial CT images of the chest were performed following the intravenous administration of contrast. A dose lowering technique was utilized adhering to the principles of ALARA. COMPARISON: 10/06/2017 FINDINGS: Study is generally stable to slightly improved compared to the prior study. Postoperative changes consistent with a right lung partial resection are again noted. The postoperative changes are similar including pleural and parenchymal scarring. No significant evidence for hilar or mediastinal adenopathy on the current study. Parenchymal nodularity left apex has diminished from 8 to 7 mm. A 6 mm superior segment left lower lobe nodule currently measures 7 mm slightly increased from the prior study of 6 mm. Additional micronodularity at the left base is slightly improved. There are no significant or new parenchymal nodules. Pleural reactive change right lung base is similar. A peripheral nodule right base laterally currently measures 4.8 mm unchanged in the prior exam. Nodular density posterior aspect right midlung has diminished from 1.3 20.8 cm. Several additional micronodules are unchanged. The osseous structures continue to show postoperative changes of median sternotomy. A true lytic or blastic process is not appreciated. IMPRESSION: 1. Postoperative and metastatic change is essentially unchanged overall compared to the prior study. 2. A case can be made for a slight improvement of several of the nodules previously described. 3. The study shows no evidence for progressive metastatic change or additional nodularity. The above report was generated using voice recognition software. It may contain grammatical, syntax or spelling errors. Electronically signed by: Rodolfo Reilly M.D. 11/11/2017 10:58 AM Dictated Date/Time: 11/11/2017 10:46 AM
== END | disposition home or self-care (01) ==
LOC: C.MRI 09:25
PROVIDERS: ATTEND Internal Medicine Hematology & Oncology
DX: C34.11 Malignant neoplasm of upper lobe, right bronchus or lung (principal); C79.31 Secondary malignant neoplasm of brain

== ENCOUNTER → 2018-02-03 | Outpatient (CLI) | payer OTHER ==
[~2018-02-03] MED LIST changes: -GADAVIST IV PRN; -HYDR-5688 PO; -MRN5 PO; +OXYC20TA50 PO; +PROC10TA PO; -PROC1TAB5 PO; +VILA1TAB3 PO
--- NOTE | 2018-02-06 07:35 | DIAGNOSTIC IMAGING REPORT ---
CT ABD/PELVIS IV AND ORAL CONT CLINICAL HISTORY: LUNG CA COMPARISON STUDY: 10/06/2017 TECHNIQUE: Following the IV administration of 120 mL of Optiray-320, CT scan of the abdomen and pelvis was performed from the lung bases to the proximal femurs. Images are reviewed in the axial, sagittal, and coronal planes. IV contrast was administered without complication. A dose lowering technique was utilized adhering to the principles of ALARA. CT DOSE: 452.50 mGycm FINDINGS: Lower chest: There are postsurgical changes present at the right lung base. There is right-sided pleural thickening. Liver: The contrast-enhanced liver is normal in size, contour, and attenuation. There is no intrahepatic biliary ductal dilatation. The hepatic veins and portal veins are patent. Gallbladder: Unremarkable. Spleen: Normal in size and attenuation. Pancreas: Unremarkable. Adrenal glands: Unremarkable. Kidneys: There is symmetric renal cortical enhancement. The kidneys are normal in size without hydronephrosis. Bowel: There are no transition zones indicate bowel obstruction. No acute inflammatory changes are visualized. Peritoneum: There is no intraperitoneal free air or abdominal ascites. Vasculature: The abdominal aorta is normal in course and caliber. Adenopathy: None. Pelvic viscera: The uterus is surgically absent. There is mild bladder wall thickening which remains similar to the preceding study. Skeletal structures: No destructive osseous lesions are seen. IMPRESSION: No evidence of metastatic disease within the abdomen or pelvis. Electronically signed by: Bentley Veloz M.D. 02/03/2018 12:50 PM Dictated Date/Time: 02/03/2018 12:45 PM
--- NOTE | 2018-02-06 07:35 | DIAGNOSTIC IMAGING REPORT ---
CHEST CT WITH CONTRAST HISTORY: Follow-up study in a patient with history of lung cancer. History of prior right upper lobectomy. LUNG CA TECHNIQUE: Multiaxial CT images of the chest were performed following the intravenous administration of contrast. A dose lowering technique was utilized adhering to the principles of ALARA. COMPARISON: Chest CT 11/11/2017, CT abdomen and pelvis 02/03/2018, CT chest 10/06/2017. FINDINGS: Thyroid appears normal. Mildly prominent AP window lymph node measures 7 mm in short axis, unchanged. Unchanged mildly prominent subcarinal lymph node, 7 mm. No pathologically enlarged mediastinal lymph nodes identified. Heart is normal in size without pericardial effusion. Prior median sternotomy. Thoracic aorta is normal in both course and caliber without aneurysm or dissection. The imaged great vessels appear to be patent. The is opacified pulmonary arterial tree is unremarkable. Postoperative changes from prior right upper lobectomy. Emphysema with multifocal areas of subsegmental pleural-parenchymal scarring redemonstrated. 5 mm solid nodule of the right lung base, image 213 series 4 is unchanged. Linear consolidative opacity about the posterior mid right lung on image 145 series 4 is also stable. Pleural parenchymal scarring of the right lung apex is stable. There are 2 solid 7 mm nodules about the left upper lobe on images 66 and 103 of series 4 which appear unchanged. No new or enlarging pulmonary nodules identified. 2 mm solid nodule of the lateral basal segment left lower lobe, image 243 series 4 is stable. Mild bilateral bronchial wall thickening. Central airways appear patent. No acute process of the imaged upper abdomen. Mild thickening of the left adrenal gland. Soft tissues are within normal limits. The bones appear to be intact. There are no suspicious lytic or blastic bony lesions. Mild multilevel spondylitic spurring of the spine. IMPRESSION: 1. Emphysema with postoperative changes of the right lung redemonstrated. 2. Scattered subcentimeter pulmonary nodules about the bilateral lungs measuring up to 7 mm within the left lung apex also appear unchanged from comparison study. There are no new or enlarging pulmonary nodules identified. 3. Unchanged mildly prominent lymph nodes of the mediastinum. No pathologically enlarged lymph nodes are identified. Electronically signed by: Reagan Bro M.D. 02/03/2018 12:59 PM Dictated Date/Time: 02/03/2018 12:48 PM
== END | disposition home or self-care (01) ==
LOC: C.CTS 10:18
PROVIDERS: ATTEND Internal Medicine Hematology & Oncology
DX: C34.11 Malignant neoplasm of upper lobe, right bronchus or lung (principal); R91.8 Other nonspecific abnormal finding of lung field; J43.9 Emphysema, unspecified

== ENCOUNTER → 2018-02-10 | Outpatient (CLI) | payer OTHER ==
[~2018-02-10] MED LIST changes: -OPTIRAY 320 IV PRN
[2018-02-10 15:14] LABS: BASO % 0.4 %; BASO ABS # 0.04 K/uL (0-0.2); EOS % 6.1 %; EOS ABS # 0.64 K/uL (0-0.5); HEMATOCRIT 39.2 % (37-47); HEMOGLOBIN 14.1 g/dL (12.0-16.0); IG# 0.02 K/uL (0.00-0.02); LYMPH % 22.8 %; MEAN CELL VOLUME 86.9 fL (80-100); MEAN CORPUSCULAR HEMOGLOBIN 31.3 pg (25-34); MEAN PLATELET VOLUME 10.5 fL (7.4-10.4); MONO % 4.4 %; MONO ABS # 0.46 K/uL (0.11-0.59); NEUT % 66.1 %; NEUT ABS # 6.96 K/uL (1.4-6.5); PLATELET COUNT 195 K/uL (130-400); RED CELL DISTRIBUTION WIDTH CV 13.1 % (11.5-14.5); RED CELL DISTRIBUTION WIDTH SD 41.7 fL (36.4-46.3); WHITE BLOOD COUNT 10.52 K/uL (4.8-10.8)
[2018-02-10 15:42] LABS: ALBUMIN 3.7 gm/dl (3.4-5.0); ALKALINE PHOSPHATASE 73 U/L (45-117); ALT/SGPT 19 U/L (12-78); AST/SGOT 14 U/L (15-37); BLOOD UREA NITROGEN 10 mg/dl (7-18); CALCIUM 8.7 mg/dl (8.5-10.1); CARBON DIOXIDE 27 mmol/L (21-32); CREATININE 0.73 mg/dl (0.60-1.20); GLUCOSE 114 mg/dl (70-99); POTASSIUM 3.5 mmol/L (3.5-5.1); SODIUM 137 mmol/L (136-145)
== END | disposition home or self-care (01) ==
LOC: C.LABSPEC 14:44
PROVIDERS: ATTEND Internal Medicine Hematology & Oncology
DX: C34.11 Malignant neoplasm of upper lobe, right bronchus or lung (principal)

== ENCOUNTER → 2018-03-03 | Outpatient (CLI) | payer OTHER ==
[2018-03-03 14:26] LABS: BASO % 0.4 %; BASO ABS # 0.04 K/uL (0-0.2); EOS % 6.3 %; EOS ABS # 0.57 K/uL (0-0.5); HEMATOCRIT 37.7 % (37-47); HEMOGLOBIN 13.3 g/dL (12.0-16.0); IG# 0.03 K/uL (0.00-0.02); LYMPH % 25.7 %; LYMPH ABS # 2.31 K/uL (1.2-3.4); MEAN CELL VOLUME 86.3 fL (80-100); MEAN CORPUSCULAR HEMOGLOBIN 30.4 pg (25-34); MEAN CORPUSCULAR HGB CONC 35.3 g/dl (32-36); MEAN PLATELET VOLUME 10.2 fL (7.4-10.4); MONO % 5.9 %; MONO ABS # 0.53 K/uL (0.11-0.59); NEUT % 61.4 %; NEUT ABS # 5.52 K/uL (1.4-6.5); PLATELET COUNT 191 K/uL (130-400); RED CELL DISTRIBUTION WIDTH CV 13.2 % (11.5-14.5); RED CELL DISTRIBUTION WIDTH SD 42.1 fL (36.4-46.3)
[2018-03-03 14:56] LABS: ALBUMIN 3.5 gm/dl (3.4-5.0); ALT/SGPT 18 U/L (12-78); AST/SGOT 13 U/L (15-37); BLOOD UREA NITROGEN 11 mg/dl (7-18); CALCIUM 9.1 mg/dl (8.5-10.1); CARBON DIOXIDE 25 mmol/L (21-32); CREATININE 0.74 mg/dl (0.60-1.20); GLUCOSE 83 mg/dl (70-99); POTASSIUM 3.5 mmol/L (3.5-5.1); SODIUM 137 mmol/L (136-145)
[2018-03-03 14:59] LABS: ALKALINE PHOSPHATASE 71 U/L (45-117); TOTAL PROTEIN 6.9 gm/dl (6.4-8.2)
== END | disposition home or self-care (01) ==
LOC: C.LABSPEC 14:15
PROVIDERS: ATTEND Internal Medicine Hematology & Oncology
DX: C34.11 Malignant neoplasm of upper lobe, right bronchus or lung (principal)